=== PATIENT | male | born 1955 | race Caucasian/White ===

== ENCOUNTER 2019-09-11 23:58 | Emergency (ER) | payer OTHER ==
[2019-09-12] MEDS ORDERED: DIAZEPAM 10 MG/2 ML INJ SYRINGE ONE (00:12)
[2019-09-12] MEDS ORDERED: NA CHLORIDE 0.9% 500 ML ONE (00:51)
[2019-09-12] MEDS ORDERED: PROPOFOL 200 MG/20 ML VIAL IV ONE (00:52)
--- NOTE | 2019-09-12 00:52 | ER ---
Nurse's Notes [facility] Name: Srinivasa Phipps Age: 64 yrs Sex: Male : 1955 Arrival Date: 09/12/2019 Time: 00:01 Bed 4 Private MD: Diagnosis: Dislocation of other parts of left shoulder girdle Presentation: 09/11 23:55 Presenting complaint: Patient states: I fell while walking down the amin and hit my jb4 shoulder on the corner of a wooden corner. I did not pass out I do not know if I hit my head. EMS states: Pt fell walking down his hallway and dislocated his shoulder. 23:55 Method Of Arrival: EMS: [facility] 23:55 Transition of care: patient was not received from another setting of care. Onset of jb4 symptoms was September 11, 2019. Risk Assessment: Do you want to hurt yourself or someone else? Patient reports no desire to harm self or others. Initial Sepsis Screen: Does the patient meet any 2 criteria? HR > 90 bpm. Yes Does the patient have a suspected source of infection? No. Patient's initial sepsis screen is negative. Care prior to arrival: None. 23:55 Acuity: KORY 3 jb4 23:55 Mechanism of Injury: Fall from standing position. jb4 23:55 Trauma event details: Injury occurred in the [facility]. jb4 Trauma Activation: Physician: ED Physician; Name: Mariya; Notified At: 00:05; Arrived At: 00:05 Physician: General Surgeon; Name: ; Notified At: 00:05; Arrived At: Physician: Radiology; Name: Manju; Notified At: 00:05; Arrived At: 00:05 Physician: Respiratory; Name: ; Notified At: 00:05; Arrived At: Physician: Lab; Name: ; Notified At: 00:05; Arrived At: Historical: - Allergies: 09/12 00:10 No Known Allergies; jb4 - Home Meds: 00:10 Metoprolol Tartrate Oral [Active]; Eliquis oral oral [Active]; jb4 - PMHx: 00:10 Atrial Fib; Hypertension; Kidney stones; jb4 - PSHx: 00:10 Heart Surgery; jb4 - Immunization history:: Adult Immunizations up to date. - Social history:: Smoking status: Patient uses alcohol. - Immunization history: Last tetanus immunization: unknown. - Ebola Screening: : No symptoms or risks identified at this time. Screenin/27 23:55 Abuse screen: Denies threats or abuse. Nutritional screening: No deficits noted. jb4 Tuberculosis screening: No symptoms or risk factors identified. Fall Risk Fall in past 12 months (25 points). IV access (20 points). Total Glass Fall Scale indicates High Risk Score (45 or more points). Fall prevention measures have been instituted. Side Rails Up X 2 Placed Close to Nursing Station Frequent Obs/Assessments Occuring Family Present and informed to notify staff if the need to leave the bedside As available patient and family educated on Fall Prevention Program and Strategies. Primary Survey: 23:55 NO uncontrolled hemorrhage observed. A: The patient is alert. Airway: patent. jb4 Breathing/Chest: Respiratory pattern: regular, Respiratory effort: spontaneous, unlabored. Circulation: Skin color: pink, Skin temperature: warm. Disability Alert. Exposure/Environment: All clothing and personal items were removed. Forensic evidence collection is not deemed to be indicated at this time. Items placed in patient belonging bag. 09/12 01:30 Reassessment Airway Airway Patent Oxygen No O2 Breathing/Chest Respiratory pattern jb4 Regular Respiratory effort Spontaneous Unlabored Circulation Color [place] Temperature Warm Disability Alert. Secondary Survey: 09/11 23:55 HEENT: No deficits noted. Gastrointestinal: No deficits noted. : No deficits noted. jb4 Musculoskeletal: Circulation, motion, and sensation intact. Range of motion: limited in left shoulder. Assessment: 23:55 General: Appears in no apparent distress. uncomfortable, Behavior is cooperative, jb4 agitated. Pain: Complains of pain in anterior aspect of left shoulder Pain does not radiate. Pain currently is 10 out of 10 on a pain scale. Quality of pain is described as stabbing. Neuro: Level of Consciousness is awake, alert, obeys commands, Oriented to person, place, time, situation. Cardiovascular: Patient's skin is warm and dry. Respiratory: Airway is patent Respiratory effort is even, unlabored, Respiratory pattern is regular, symmetrical. GI: No deficits noted. No signs and/or symptoms were reported involving the gastrointestinal system. : No deficits noted. No signs and/or symptoms were reported regarding the genitourinary system. EENT: No deficits noted. No signs and/or symptoms were reported regarding the EENT system. Derm: Skin has skin tears on Left wrist. Musculoskeletal: Circulation, motion, and sensation intact. Range of motion: limited in left shoulder. 09/12 00:58 Reassessment: Conscious sedation started at 0058. jb4 01:30 Reassessment: Patient appears in no apparent distress at this time. Patient and/or jb4 family updated on plan of care and expected duration. Pain level reassessed. Patient is alert, oriented x 3, equal unlabored respirations, skin warm/dry/pink. Pt has been placed in a shoulder immobilizer. Patient states feeling better. 02:29 Reassessment: Patient appears in no apparent distress at this time. Patient and/or jb4 family updated on plan of care and expected duration. Pain level reassessed. Patient is alert, oriented x 3, equal unlabored respirations, skin warm/dry/pink. PT assisted to Vehicle via Wheelchair. Vital Signs: 09/11 23:55 BP 123 / 70; Pulse 91; Resp 14; Temp 97.4(O); Pulse Ox 97% on R/A; Weight 129.27 kg jb4 (R); Height 5 ft. 10 in. (177.80 cm) (R); Pain 08/25; 09/12 00:59 BP 124 / 87; Pulse 85; Resp 17; Pulse Ox 100% on 100% Non-rebreather mask; jb4 01:45 BP 118 / 73; Pulse 83; Resp 14; Pulse Ox 100% on R/A; jb4 02:15 BP 127 / 64; Pulse 92; Resp 17; Pulse Ox 99% on R/A; jb4 09/11 23:55 Body Mass Index 40.89 (129.27 kg, 177.80 cm) jb4 [place] Coma Score: 09/11 23:55 Eye Response: spontaneous(4). Verbal Response: oriented(5). Motor Response: obeys jb4 commands(6). Total: 15. 09/12 00:59 Eye Response: spontaneous(4). Verbal Response: oriented(5). Motor Response: obeys jb4 commands(6). Total: 15. 01:45 Eye Response: spontaneous(4). Verbal Response: oriented(5). Motor Response: obeys jb4 commands(6). Total: 15. 02:15 Eye Response: spontaneous(4). Verbal Response: oriented(5). Motor Response: obeys jb4 commands(6). Total: 15. Trauma Score (Adult): 09/11 23:55 Eye Response: spontaneous(1); Verbal Response: oriented(1); Motor Response: obeys jb4 commands(2); Systolic BP: > 89 mm Hg(4); Respiratory Rate: 10 to 29 per min(4); [place] Score: 15; Trauma Score: 12 09/12 00:59 Eye Response: spontaneous(1); Verbal Response: oriented(1); Motor Response: obeys jb4 commands(2); Systolic BP: > 89 mm Hg(4); Respiratory Rate: 10 to 29 per min(4); [place] Score: 15; Trauma Score: 12 01:45 Eye Response: spontaneous(1); Verbal Response: oriented(1); Motor Response: obeys jb4 commands(2); Systolic BP: > 89 mm Hg(4); Respiratory Rate: 10 to 29 per min(4); [place] Score: 15; Trauma Score: 12 02:15 Eye Response: spontaneous(1); Verbal Response: oriented(1); Motor Response: obeys jb4 commands(2); Systolic BP: > 89 mm Hg(4); Respiratory Rate: 10 to 29 per min(4); Buck Score: 15; Trauma Score: 12 ED Course: 09/11 23:55 Arm band placed on left wrist. jb4 23:55 Patient has correct armband on for positive identification. Placed in gown. Bed in low jb4 position. Call light in reach. Side rails up X2. 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 Pulse ox on. NIBP on. 23:55 No provider procedures requiring assistance completed. Maintain EMS IV. Dressing jb4 intact. Good blood return noted. Site clean \T\ dry. Gauge \T\ site: 20g right wrist. 23:55 Patient maintains SpO2 saturation greater than 95% on room air. Thermoregulation: warm jb4 blanket given to patient. 09/12 00:01 Patient arrived in ED. bb 00:05 José Richter RN is Primary Nurse. jb4 00:07 Sj Meraz MD is Attending Physician. tw4 00:07 Triage completed. jb4 01:15 Shoulder immobilizer applied on left shoulder. ds4 01:30 Shoulder Left (2 View) XRAY In Process Unspecified. EDMS 01:32 Shoulder Left (2 View) XRAY In Process Unspecified. EDMS 02:07 Gilbert Martinez MD is Referral Physician. tw4 02:07 Ritesh Hernandez MD is Referral Physician. tw4 02:07 Juvencio Ambrosio MD is Referral Physician. tw4 02:33 IV discontinued, intact, bleeding controlled, No redness/swelling at site. Pressure jb4 dressing applied. Administered Medications: 00:15 Drug: Valium 5 mg Route: IVP; Site: right wrist; jb4 00:45 Follow up: Response: No adverse reaction; No change in condition jb4 00:34 CANCELLED (other intervention used): Lidocaine (1 %) 1 vials 20 ml Infiltration once; snw to bedside 00:58 Drug: Propofol 160 mg Route: IVP; Site: right wrist; jb4 01:48 Follow up: Response: No adverse reaction; Marked relief of symptoms jb4 Intake: 02:32 IV: 250ml (IV Fluid); Total: 250ml. jb4 Output: 02:32 Urine: 0ml; Total: 0ml. jb4 Outcome: 00:51 Discharge ordered by . tw4 02:07 Discharge ordered by MD. tw4 02:33 Discharged to home via wheelchair, with family. jb4 02:33 Condition: stable 02:33 Discharge instructions given to patient, Instructed on discharge instructions, follow up and referral plans. medication usage, Demonstrated understanding of instructions, follow-up care, medications, Prescriptions given X 2. 02:33 Patient's length of stay in the Emergency Department was greater than 2 hours. Pt jb4 discharged.Patient's length of stay extended due to 02:33 Patient left the ED. jb4 Signatures: Dispatcher [employer] EDMS Aneta Morillo, RN RN Brien Harden ds4 José Richter RN RN jb4 Wadley, Terrence, MD MD tw4 Amy Chavez [address] [employer] [facility]-Csnw
--- NOTE | 2019-09-12 00:52 | EDPHYS ---
Physician Documentation [facility] Name: Srinivasa Phipps Age: 64 yrs Sex: Male : 1955 Arrival Date: 09/12/2019 Time: 00:01 Bed 4 Private MD: ED Physician Sj Meraz HPI: 09/12 02:02 This 64 yrs old Male presents to ER via EMS with complaints of fall shoulder tw4 pain. 02:02 The patient or guardian complains of injury. The complaints affect the anterior aspect tw4 of left shoulder. Context: The problem was sustained at home. Onset: The symptoms/episode began/occurred today. Treatment prior to arrival includes: no previous treatment. Modifying factors: The symptoms are alleviated by nothing. the symptoms are aggravated by nothing. Severity of symptoms: At their worst the symptoms were moderate, in the emergency department the symptoms are unchanged. The patient has not experienced similar symptoms in the past. Historical: - Allergies: 00:10 No Known Allergies; jb4 - Home Meds: 00:10 Metoprolol Tartrate Oral [Active]; Eliquis oral oral [Active]; jb4 - PMHx: 00:10 Atrial Fib; Hypertension; Kidney stones; jb4 - PSHx: 00:10 Heart Surgery; jb4 - Immunization history:: Adult Immunizations up to date. - Social history:: Smoking status: Patient uses alcohol. - Immunization history: Last tetanus immunization: unknown. - Ebola Screening: : No symptoms or risks identified at this time. ROS: 02:02 Constitutional: Negative for fever, chills, and weight loss, Eyes: Negative for injury, tw4 pain, redness, and discharge, Cardiovascular: Negative for chest pain, palpitations, and edema, Respiratory: Negative for shortness of breath, cough, wheezing, and pleuritic chest pain, Abdomen/GI: Negative for abdominal pain, nausea, vomiting, diarrhea, and constipation, Back: Negative for injury and pain, Skin: Negative for injury, rash, and discoloration, Neuro: Negative for headache, weakness, numbness, tingling, and seizure. 02:02 MS/extremity: Positive for injury or acute deformity, decreased range of motion, deformity. Exam: 02:02 Constitutional: This is a well developed, well nourished patient who is awake, alert, tw4 and in no acute distress. Head/Face: Normocephalic, atraumatic. Chest/axilla: Normal chest wall appearance and motion. Nontender with no deformity. No lesions are appreciated. Cardiovascular: Regular rate and rhythm with a normal S1 and S2. No gallops, murmurs, or rubs. Normal PMI, no JVD. No pulse deficits. Respiratory: Lungs have equal breath sounds bilaterally, clear to auscultation and percussion. No rales, rhonchi or wheezes noted. No increased work of breathing, no retractions or nasal flaring. Abdomen/GI: Soft, non-tender, with normal bowel sounds. No distension or tympany. No guarding or rebound. No evidence of tenderness throughout. 02:02 Musculoskeletal/extremity: Extremities: noted in the anterior aspect of left shoulder: decreased ROM, deformity, tenderness, ROM: limited active range of motion due to pain, in the anterior aspect of left shoulder, limited passive range of motion due to pain, in the anterior aspect of left shoulder, Circulation is intact in all extremities. Vital Signs: 09/11 23:55 BP 123 / 70; Pulse 91; Resp 14; Temp 97.4(O); Pulse Ox 97% on R/A; Weight 129.27 kg jb4 (R); Height 5 ft. 10 in. (177.80 cm) (R); Pain 08/25; 09/12 00:59 BP 124 / 87; Pulse 85; Resp 17; Pulse Ox 100% on 100% Non-rebreather mask; jb4 01:45 BP 118 / 73; Pulse 83; Resp 14; Pulse Ox 100% on R/A; jb4 02:15 BP 127 / 64; Pulse 92; Resp 17; Pulse Ox 99% on R/A; jb4 09/11 23:55 Body Mass Index 40.89 (129.27 kg, 177.80 cm) jb4 [place] Coma Score: 09/11 23:55 Eye Response: spontaneous(4). Verbal Response: oriented(5). Motor Response: obeys jb4 commands(6). Total: 15. 09/12 00:59 Eye Response: spontaneous(4). Verbal Response: oriented(5). Motor Response: obeys jb4 commands(6). Total: 15. 01:45 Eye Response: spontaneous(4). Verbal Response: oriented(5). Motor Response: obeys jb4 commands(6). Total: 15. 02:15 Eye Response: spontaneous(4). Verbal Response: oriented(5). Motor Response: obeys jb4 commands(6). Total: 15. Trauma Score (Adult): 09/11 23:55 Eye Response: spontaneous(1); Verbal Response: oriented(1); Motor Response: obeys jb4 commands(2); Systolic BP: > 89 mm Hg(4); Respiratory Rate: 10 to 29 per min(4); [place] Score: 15; Trauma Score: 12 09/12 00:59 Eye Response: spontaneous(1); Verbal Response: oriented(1); Motor Response: obeys jb4 commands(2); Systolic BP: > 89 mm Hg(4); Respiratory Rate: 10 to 29 per min(4); [place] Score: 15; Trauma Score: 12 01:45 Eye Response: spontaneous(1); Verbal Response: oriented(1); Motor Response: obeys jb4 commands(2); Systolic BP: > 89 mm Hg(4); Respiratory Rate: 10 to 29 per min(4); [place] Score: 15; Trauma Score: 12 02:15 Eye Response: spontaneous(1); Verbal Response: oriented(1); Motor Response: obeys jb4 commands(2); Systolic BP: > 89 mm Hg(4); Respiratory Rate: 10 to 29 per min(4); [place] Score: 15; Trauma Score: 12 Procedures: 02:02 Moderate sedation: Pre-procedure assessment: ASA physical classification: I - healthy, tw4 no underlying organic disease, Airway assessment: able to hyperextend neck, able to maintain airway, can open mouth without difficulty, Mallampati classification of tongue size: I - faucial pillars, soft palate, and uvula can be fully visualized, Monitoring during procedure: stencil typist, continuous pulse oximetry, nurse at bedside at all times, Medications employed: Propfol. 02:06 Reduction: of the left shoulder, using traction, manipulation, supination, Immobilized tw4 with shoulder immobilizer. Patient tolerated well. Post reduction film - reveals normal alignment. MDM: 00:07 Patient medically screened. tw4 02:02 Differential diagnosis: dislocation. Data reviewed: vital signs, nurses notes. Data tw4 interpreted: Pulse oximetry: Interpretation: normal. Test interpretation: by ED physician or midlevel provider: plain radiologic studies. Counseling: I had a detailed discussion with the patient and/or guardian regarding: the historical points, exam findings, and any diagnostic results supporting the discharge/admit diagnosis. Special discussion: I discussed with the patient/guardian in detail that at this point there is no indication for admission to the hospital. It is understood, however, that if the symptoms persist or worsen the patient needs to return immediately for re-evaluation. 09/12 00:24 Order name: Conscious Sedation; Complete Time: :30 snw 09/12 00:35 Order name: Oxygen: 15L via NRB x 15min; Complete Time: : snw 09/12 01:16 Order name: Shoulder Immobilizer; Complete Time: : snw 09/12 01:16 Order name: Wound Care; Complete Time: : snw 09/12 01:16 Order name: Dermabond; Complete Time: : snw Administered Medications: 00:15 Drug: Valium 5 mg Route: IVP; Site: right wrist; jb4 00:45 Follow up: Response: No adverse reaction; No change in condition jb4 00:34 CANCELLED (other intervention used): Lidocaine (1 %) 1 vials 20 ml Infiltration once; snw to bedside 00:58 Drug: Propofol 160 mg Route: IVP; Site: right wrist; jb4 01:48 Follow up: Response: No adverse reaction; Marked relief of symptoms jb4 Disposition: 09/12/19 02:07 Discharged to Home. Impression: Dislocation of other parts of left shoulder girdle. - Condition is Stable. - Discharge Instructions: Shoulder Range of Motion Exercises, Shoulder Dislocation, [id number]. - Prescriptions for Ibuprofen 800 mg Oral Tablet - take 1 tablet by ORAL route every 8 hours As needed take with food; 30 tablet. Tramadol 50 mg Oral Tablet - take 1 tablet by ORAL route every 8 hours as needed; 12 tablet. - Work release form, Medication Reconciliation Form, Thank You Letter, Antibiotic Education, Prescription Opioid Use form. - Follow up: Gilbert Martinez MD; When: Upon discharge from the Emergency Department; Reason: Recheck today's complaints, Continuance of care. Follow up: Ritesh Hernandez MD; When: Upon discharge from the Emergency Department; Reason: Recheck today's complaints, Continuance of care. Follow up: Juvencio Ambrosio MD; When: Upon discharge from the Emergency Department; Reason: Recheck today's complaints, Continuance of care. - Problem is new. - Symptoms have improved. Signatures: Dispatcher [employer] EDMS Amy Chavez, GIVING OFFICER-C GIVING OFFICER-Csnw José Richter, RN RN jb4 Sj Meraz MD MD tw4 Corrections: (The following items were deleted from the chart) 00:34 00:24 Lidocaine (1 %) 1 vials 20 ml Infiltration once; to bedside ordered. snw snw 01:39 00:51 09/12/2019 00:51 Discharged to Home. Impression: Anxiety disorder, unspecified. tw4 Condition is Stable. Forms are Medication Reconciliation Form, Thank You Letter, Antibiotic Education, Prescription Opioid Use. Follow up: Private Physician; When: Upon discharge from the Emergency Department; Reason: Recheck today's complaints, Continuance of care. Problem is new. Symptoms have improved. tw4 02:33 02:07 09/12/2019 02:07 Discharged to Home. Impression: Dislocation of other parts of jb4 left shoulder girdle. Condition is Stable. Forms are Medication Reconciliation Form, Thank You Letter, Antibiotic Education, Prescription Opioid Use. Follow up: Gilbert Martinez; When: Upon discharge from the Emergency Department; Reason: Recheck today's complaints, Continuance of care. Follow up: Ritesh Hernadnez; When: Upon discharge from the Emergency Department; Reason: Recheck today's complaints, Continuance of care. Follow up: Juvencio Ambrosio; When: Upon discharge from the Emergency Department; Reason: Recheck today's complaints, Continuance of care. Problem is new. Symptoms have improved. tw4
[2019-09-12 02:46] VITALS: BP 127/64; O2SAT 99
--- NOTE | 2019-09-12 08:09 | RAD REPORT ---
EXAM DESCRIPTION: RAD - Shoulder 1 View - 09/12/2019 6:50 am CLINICAL HISTORY: PAIN COMPARISON: Shoulder 1 View dated 09/12/2019 FINDINGS: Single frontal projection left shoulder is submitted. Subcoracoid dislocation of the humer al head is suspected with respect to the glenoid.
--- NOTE | 2019-09-12 08:12 | RAD REPORT ---
EXAM DESCRIPTION: RAD - Shoulder 1 View - 09/12/2019 6:52 am CLINICAL HISTORY: s/p reduction Shoulder dislocation COMPARISON: Shoulder 1 View dated 09/12/2019 FINDINGS: Previously noted subcoracoid dislocation of the humeral head has been reduced. No fracture is evident.
== END 2019-09-12 02:33 | disposition home or self-care (01) ==
LOC: ER 23:58
DX: S43.305A Dislocation of unspecified parts of left shoulder girdle, initial encounter (principal); I10 Essential (primary) hypertension; I48.91 Unspecified atrial fibrillation; W01.119A Fall on same level from slipping, tripping and stumbling with subsequent striking against unspecified sharp object, initial encounter; Y93.89 Activity, other specified; Y92.9 Unspecified place or not applicable
CPT/HCPCS: 73020 ×2; 96375; 96374; 99285; J2704; J3360; J7040

== ENCOUNTER 2020-02-03 11:26 | Day surgery (SDC) | payer OTHER ==
[2020-02-02 11:25] LABS: Absolute Lymphocytes (CBC) 0.9 K/uL (0.7-4.9); Basophils % 0.5 % (0-1.3); Hematocrit 34.4 % (39.6-49.0); Lymphocytes % 8.8 % (15.3-44.8); RBC Red Blood Cell Count 4.42 M/uL (4.33-5.43)
[2020-02-02 11:47] LABS: Potassium 3.6 mmol/L (3.5-5.1)
--- NOTE | 2020-02-02 16:52 | EKG ---
Test Date: 2020-02-02 Test Time: 12:03:43 Diesel Mechanic Apprentice: MELE MEASUREMENT RESULTS: Intervals: Rate: 84 VA: QRSD: 98 QT: 396 QTc: 467 [place]: P: VA: QRS: 60 T: -54 INTERPRETIVE STATEMENTS: Atrial fibrillation ST & T wave abnormality, consider inferior ischemia or digitalis effect Prolonged QT Abnormal ECG No previous ECG available for comparison Electronically Signed On 02-02-20 16:51:51 CDT by Bruce Huitron
--- OUTSIDE RECORDS SUMMARY | 2020-02-03 11:30 | XMS REPORT | Summary of Care ---
:1955 Author Organization [address] [address] Care Team Providers Name Role Phone Jsoé Block MD Primary Care Provider Reason for Visit Reason Comments Arrhythmias Encounter Details Date Type Department Care Team Description 12/29/2019 Case Management [facility], Iron Tamayo, Arrhythmias [facility] Clinics [address] [place] [address]. [place] [id number] Allergies No Known Allergiesdocumented as of this encounter (statuses as of 12/29/2019) Medications Medication Sig Dispensed Refills Start Date End Date Status ELIQUIS 5 mg tablet Take 5 mg by 0 12/26/2016 Active mouth 2 (two) times daily. amLODIPine 5 mg Take 1 tablet by 30 tablet 12 05/30/2019 Active tabletIndications: mouth daily. Essential hypertension furosemide 40 mg Take 1 tablet by 30 tablet 5 06/27/2019 Active tabletIndications: mouth daily. Acute on chronic diastolic congestive heart failure olmesartan-hydrochlorot Take 1 tablet by 30 tablet 12 10/19/2019 Active hiazide 40-12.5 mg per mouth daily. tabletIndications: Essential hypertension olmesartan-hydrochlorot Take 1 tablet by 90 tablet 0 10/18/2019 Active hiazide 40-12.5 mg per mouth daily. tabletIndications: Essential hypertension metoprolol succinate XL Take 1 tablet by 180 tablet 2 11/29/2019 Active 100 mg 24 hr tablet mouth 2 (two) times daily. documented as of this encounter (statuses as of 12/29/2019) Active Problems Problem Noted Date Obesity (BMI 30-39.9) 05/26/2019 Acute exacerbation of CHF (congestive heart failure) 05/25/2019 Left lower lobe pneumonia 05/02/2019 Morbid obesity with body mass index of 40.0-49.9 05/02/2019 Atrial fibrillation with RVR 05/02/2019 Chronic anticoagulation 05/02/2019 Essential hypertension 12/18/2015 documented as of this encounter (statuses as of 12/29/2019) Immunizations Name Administration Dates Next Due Influenza Virus Vaccine 08/30/2016 documented as of this encounter Social History Tobacco Use Types Packs/Day Years Used Date Former Smoker Quit: 12/18/2012 Smokeless Tobacco: Never Used Alcohol Use Drinks/Week oz/Week Comments Yes 6 Cans of beer 6.0 Sex Assigned at Date Recorded Not on file Job Start Date Occupation Industry Not on file Not on file Not on file Travel History Travel Start Travel End No recent travel history available. documented as of this encounter Last Filed Vital Signs Not on filedocumented in this encounter Progress Notes Iron Jean Baptiste MD - 12/29/2019 4:55 AM CSTReceived a call from [employer] informing us that at 2:11 am patient had 5 beats of NSVT at rate of 166 bpm with baseline rhythm of a-fib at rate of 60-70 bpm. [employer] called Mr. Phipps who reported having no symptoms. Iron Jean Baptiste MD Cold Header Operator PGY 4 Pager [phone] documented in this encounter Plan of Treatment Date Type Specialty Care Team Description 01/31/2020 Office Visit Cardiology Robert Irby MD [address] [place] [address] [place] [phone] Health Maintenance Due Date Last Done Comments LDL-C 01/28/2019 01/28/2018, 12/29/2016 COLONOSCOPY 01/13/2020 Postponed from 2003 (Alternative Guidelines) DTaP,Tdap,and Td Vaccines 01/13/2020 Postponed from (1 - Tdap) 1964 (Alternative Guidelines) EYE EXAM 01/13/2020 Postponed from 1963 (Alternative Guidelines) HEPATITIS C (HCV) SCREEN 01/13/2020 Postponed from 1955 (Alternative Guidelines) HgA1C 01/13/2020 05/02/2019, 11/01/2018, Postponed from 05/10/2018, Additional 11/01/2019 (Alternative history exists Guidelines) INFLUENZA VACCINE (#1) 2020 08/30/2016 Postponed from 07/17/2019 (Alternative Guidelines) LUNG CANCER SCREEN: 01/13/2020 Postponed from Recommended for age 55-80 2008 (Alternative with 30 + pack year history Guidelines) Medicare Wellness Visit 01/13/2020 Postponed from 2018 (Alternative Guidelines) PNEUMOCOCCAL VACCINES 65+ 01/13/2020 Postponed from (1 of 2 - PCV13) 2018 (Alternative Guidelines) URINE MICROALBUMIN 01/13/2020 Postponed from 1963 (Alternative Guidelines) Zoster Recombinant Vaccine 01/13/2020 Postponed from (SHINGRIX) (1 of 2) 2003 (Alternative Guidelines) FOOT EXAM 05/02/2020 05/02/2019, 05/02/2019 CREATININE (SERUM) 11/29/2020 11/29/2019, 05/27/2019, 05/26/2019, Additional history exists documented as of this encounter Results Not on filedocumented in this encounter Insurance Payer Benefit Plan / Subscriber ID Effective Dates Phone Address Type Group AETNA SRC AN AETNA [id number] 2015-[employer] t MEDICARE MEDICARE PART xxxxxxxxxxx 2018-Julián [phone] [address] Medicare A t 2 [id number] documented as of this encounter
--- OUTSIDE RECORDS SUMMARY | 2020-02-03 11:30 | XMS REPORT | Summary of Care ---
:1955 Author Organization [facility] Address [address] [place] [address] Care Team Providers Name Role Phone José Block MD Primary Care Provider Reason for Referral (Routine) Status Reason Specialty Diagnoses / Referred By Referred To Procedures Contact Contact New Request Cardiology Procedures Robert Irby CARDIO LOOP MONITOR MD [facility] [address] [facility] [address] [place] [address] Reason for Visit Reason Comments New Patient Establish Local Care Auth/Cert Status Reason Specialty Diagnoses / Procedures Referred By Contact Referred To Contact Phlebotomy Diagnoses Acute on chronic diastolic congestive heart failure Adc Pob Lab Draw Procedures n-term pro bnp basic met panell [facility] Building [address] [place] [address] , [address] [place] [address] Encounter Details Date Type Department Care Team Description 11/29/2019 Office Visit [facility] Robert Irby Atrial fibrillation, unspecified type (Primary Dx); Cardiology- Christiano Murillo MD Morbid obesity with body mass index of 40.0-49.9; [address] [place] [address] DR Stacy anticoagulation; [facility], [address] Essential hypertension; [place], [place] OMAR on CPAP; [phone] Chronic heart failure with preserved ejection fraction [phone] Allergies No Known Allergiesdocumented as of this encounter (statuses as of 12/27/2019) Medications Medication Sig Dispensed Refills Start Date End Date Status ELIQUIS 5 mg Take 5 mg by 0 12/26/2016 Active tablet mouth 2 (two) times daily. amLODIPine 5 mg Take 1 30 tablet 12 05/30/2019 Active tabletIndications: tablet by Essential mouth daily. hypertension furosemide 40 mg Take 1 30 tablet 5 06/27/2019 Active tabletIndications: tablet by Acute on chronic mouth daily. diastolic congestive heart failure olmesartan-hydroch Take 1 30 tablet 12 10/19/2019 Active lorothiazide tablet by 40-12.5 mg per mouth daily. tabletIndications: Essential hypertension olmesartan-hydroch Take 1 90 tablet 0 10/18/2019 Active lorothiazide tablet by 40-12.5 mg per mouth daily. tabletIndications: Essential hypertension metoprolol Take 1 180 tablet 2 11/29/2019 Active succinate XL 100 tablet by mg 24 hr tablet mouth 2 (two) times daily. metoprolol Take 3 180 tablet 5 05/27/2019 Discontinued succinate XL 25 mg tablets by 0 (Reorder) 24 hr mouth 2 tabletIndications: (two) times Acute on chronic daily. diastolic congestive heart failure documented as of this encounter (statuses as of 12/27/2019) Active Problems Problem Noted Date Obesity (BMI 30-39.9) 05/26/2019 Acute exacerbation of CHF (congestive heart failure) 05/25/2019 Left lower lobe pneumonia 05/02/2019 Morbid obesity with body mass index of 40.0-49.9 05/02/2019 Atrial fibrillation with RVR 05/02/2019 Chronic anticoagulation 05/02/2019 Essential hypertension 12/18/2015 documented as of this encounter (statuses as of 12/27/2019) Immunizations Name Administration Dates Next Due Influenza [...] of this encounter Last Filed Vital Signs Vital Sign Reading Time Taken Comments Blood Pressure 146/85 11/29/2019 11:29 AM OFFICE AUTOMATION CLERK Pulse 102 11/29/2019 11:24 AM OFFICE AUTOMATION CLERK Temperature - - Respiratory Rate 20 11/29/2019 11:24 AM OFFICE AUTOMATION CLERK Oxygen Saturation 95% 11/29/2019 11:24 AM OFFICE AUTOMATION CLERK Inhaled Oxygen Concentration - - Weight 132.4 kg (291 lb 14.4 oz) 11/29/2019 11:24 AM OFFICE AUTOMATION CLERK Height 177.8 cm (5' 10") 11/29/2019 11:24 AM OFFICE AUTOMATION CLERK Body Mass Index 41.88 11/29/2019 11:24 AM OFFICE AUTOMATION CLERK documented in this encounter Progress Notes Robert Irby MD - 11/29/2019 11:30 AM CST [facility] Cardiology Consult Note Patient: Srinivasa Phipps Date of : 1955 Date of service: José Block CHIEF COMPLAINT: Chief Complaint Patient presents with New Patient Establish Local Care History of Present Illness: Srinivasa Phipps is a 63 year old male presents to clinic to establish care with [facility] Cardiology for HFpEF and atrial fibrillation. History from patient. History dates back to 2012 when he was noticed to have parathyroid problems/ kidney stones/ lithotripsy. Had one episode of syncope. S/p Parathyroid surgery; noted to be in atrial fibrillation. Established care with Dr Hughes/Dr Marlow: Meds for atrial fibrillation: 2013: s/p DCVV: in [place] for few months. Then went back to ? Aflutter. 10/[address] Caicedo in [place]. Typical atrial flutter ablation. Reports was in [place] for few visits, then he had atrial fibrillation since then sometime [phone] onwards. Unsure if its PAF in nature. In -05/2019, admitted for pneumonia/HFpEF, added lasix and Cardizem. Currently taking Norvasc instead of Cardizem. Dyspnea worse with exertion NYHA Class II. Weight increasing. No history of exertional chest pain. No chest pain at rest. No PND or orthopnea. No pedal edema. No syncopal attacks. History of chronic atrial fibrillation/flutter s/p flutter ablation 2014, hypertension, OMAR, obese. Previous Cardiac Studies: IMAGING - I personally reviewed, pertinent results as below: ECG: Afib with RVR CXR CONCLUSIONS: 1. Findings suggestive of left lower lobe pneumonia with small parapneumonic effusion and mild pulmonary venous congestion Echo 04/2019 Interpretation Summary A complete two-dimensional transthoracic echocardiogram was performed (2D, M- mode, Doppler and colorflow Doppler). The study was technically difficult. There is no comparison study available. Left ventricular systolic function is normal. Diastolic dysfunction. Insufficient Tricuspid regurgitation jet to estimate RVSP. The right atrium is mildly dilated. 10/2015 CONCLUSIONS: 1. Successful ablation of the cavotricuspid isthmus with bidirectional block. PAST MEDICAL HISTORY Past Medical History: Diagnosis Date Atrial flutter Hypertension Past Surgical History: Procedure Laterality Date ABLATION SUPRAVENT ARRHYTHMOGENIC FOCUS 10/18/2015 Family History Problem Relation Age of Onset No Significant Medical Problems Mother Alcohol/Drug Father GI Father SOCIAL HISTORY Social History Socioeconomic History Marital status: Spouse name: Not on file Number of children: Not on file Years of education: Not on file Highest education level: Not on file Occupational History Not on file Social Needs Financial resource strain: Not on file Food insecurity: Worry: Not on file Inability: Not on file Transportation needs: Medical: Not on file Non-medical: Not on file Tobacco Use Smoking status: Former Smoker Last attempt to quit: 12/18/2012 Years since quittin.9 Smokeless tobacco: Never Used Substance and Sexual Activity Alcohol use: Yes Alcohol/week: 6.0 standard drinks Types: 6 Cans of beer per week Drug use: No Sexual activity: Yes Partners: Female Lifestyle Physical activity: Days per week: Not on file Minutes per session: Not on file Stress: Not on file Relationships Social connections: Talks on phone: Not on file Gets together: Not on file Attends congregational service: Not on file Active member of club or organization: Not on file Attends meetings of clubs or organizations: Not on file Relationship status: Not on file Intimate partner violence: Fear of current or ex partner: Not on file Emotionally abused: Not on file Physically abused: Not on file Forced sexual activity: Not on file Other Topics Concern Not on file 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 ELIQUIS 5 MG TABLET Take 5 mg by mouth 2 (two) times daily. FUROSEMIDE 40 MG TABLET Take 1 tablet by mouth daily. OLMESARTAN-HYDROCHLOROTHIAZIDE 40-12.5 MG PER TABLET Take 1 tablet by mouth daily. OLMESARTAN-HYDROCHLOROTHIAZIDE 40-12.5 MG PER TABLET Take 1 tablet by mouth daily. START taking Modified Medications as Prescribed Modified Medication Previous Medication METOPROLOL SUCCINATE XL 100 MG 24 HR TABLET metoprolol succinate XL 25 mg 24 hr tablet Take 1 tablet by mouth 2 (two) times daily. Take 3 tablets by mouth 2 ( two) times daily. STOP taking these medications No medications on file REVIEW OF SYSTEMS: Comprehensive 10-system review was conducted and were negative except for what' s noted in the HPI. The following systems were reviewed: Constitutional, cardiovascular, respiratory, gastrointestinal, genitourinary, musculoskeletal, neurologic, psychiatric, endocrinological, and hematological. PHYSICAL EXAMINATION: Vitals: 11/29/19 1124 11/29/19 1129 BP: 137/89 (!) 146/85 BP Location: Left arm Patient Position: Sitting BP CUFF SIZE: Adult Large Pulse: 102 Resp: 20 SpO2: 95% Weight: 291 lb 14.4 oz (132.4 kg) Height: 5' 10" (1.778 m) General: no apparent distress HEENT: normocephalic atraumatic Neck: supple, no lymphadenopathy, no bruits, no JVD Lungs: clear to auscultation bilaterally. No wheezes or rhonchi. No increased work of breathing. Cardio: Iregular rate and rhythm, S1&S2 normal, no murmurs, rubs or gallops Abdomen: soft; non-tender; non-distended; normoactive bowel sounds. : not examined Rectal: not examined Extremities: no clubbing, cyanosis, or edema. Skin: no rashes, no visible lesions. Neuro: no gross focal deficits LABS - Reviewed pertinent labs as below: CBC BMP PT/INR WHITE BLOOD CELL COUNT-Q (Thousand/uL) Date Value 01/28/2018 8.6 WBC (10*3/L) Date Value 05/27/2019 10.13 NA (mmol/L) Date Value 05/27/2019 138 SODIUM-Q (mmol/L) Date Value 01/28/2018 137 No results found for: PT PLATELET COUNT-Q (Thousand/uL) Date Value 01/28/2018 240 PLT (10*3/L) Date Value 05/27/2019 324 K (mmol/L) Date Value 05/30/2019 4.5 POTASSIUM-Q (mmol/L) Date Value 01/28/2018 4.5 INR (no units) Date Value 05/25/2019 1.6 HGB (g/dL) Date Value 05/27/2019 13.0 HEMOGLOBIN-Q (g/dL) Date Value 01/28/2018 15.9 BUN (mg/dL) Date Value 05/27/2019 21 UREA NITROGEN (BUN)-Q (mg/dL) Date Value 01/28/2018 16 HCT (%) Date Value 05/27/2019 41.9 HEMATOCRIT-Q (%) Date Value 01/28/2018 50.4 (H) CREATININE (mg/dL) Date Value 05/27/2019 0.78 CREATININE-Q (mg/dL) Date Value 01/28/2018 1.04 LIPID PROFILE GLUCOSE (mg/dL) Date Value 05/27/2019 113 (H) GLUCOSE-Q (mg/dL) Date Value 01/28/2018 356 (H) CHOLESTEROL, TOTAL-Q (mg/dL) Date Value 01/28/2018 200 (H) TSH [id number] (mg/dL (calc)) Date Value 01/28/2018 117 (H) TSH (mIU/L) Date Value 05/02/2019 0.07 (L) CARDIAC ENZYMES HDL CHOLESTEROL-Q (mg/dL) Date Value 01/28/2018 55 No results found for: CK TRIGLYCERIDES-Q (mg/dL) Date Value 01/28/2018 161 (H) LFTs No results found for: CKMB AST(SGOT) (U/L) Date Value 05/25/2019 27 AST-Q (U/L) Date Value 01/28/2018 15 TROPONIN I (ng/mL) Date Value 05/25/2019 0.017 ALT(SGPT) (U/L) Date Value 05/25/2019 28 ALT-Q (U/L) Date Value 01/28/2018 26 No results found for: BNP [id number]-S (mg/dL (calc)) Date Value 01/28/2018 117 (H) Recent Labs 05/25/19 1000 TROPNI 0.017 There are no current results on file for these tests and/or test for 1 year. ASSESSMENT/PLAN 1. Atrial fibrillation, unspecified type 2. Morbid obesity with body mass index of 40.0-49.9 3. Chronic anticoagulation 4. Essential hypertension 5. OMAR on CPAP 6. Chronic heart failure with preserved ejection fraction Afib: unspecified: likely persistent. Will get records from Dr Marlow office to see if regarding this echo, ECG, stress test and OV notes Recommend to increase Toprol XL 100 mg BiD. Continue Eliquis 5 mg biD Unsure why Cardizem was stopped. May need to restart it if needed for better rate controled Recommend event monitor for 2 weeks to assess for atrial fibrillation burden/ rate control. Rx options for atrial fibrillation discussed. Will refer to EP based on monitor results. Chronic diastolic HF: Stable. Labs today. Continue Lasix 40 mg daily. Keep K > 4 and Mag > 2. Daily weights at home. HTN: On Olmesartan/HCTZ 10/12.5 daily along with Norvasc 5 mg daily. Goal BP << 130/80 stressed. OMAR on CPAP: Reports compliance. Follow up in 6-8 weeks. Recommended goal BP < 130/80 consistently, LDL < 100 ( < 70), HbA1c &lt ; 6.5. Recommended, explained and stressed the importance of healthy eating habits and exercises and lifestyle modifications Patient's diease process and its evaluation and treatment were discussed. We discussed each of for cardio vascular-related problems and discussed long-term goals and expectations for the each problem.I reviewed each of the cardiac medications in detail. Given the patient's risk factor profile, and clinical symptoms, we discussed options for further assessment. The diagnostic accuracy and limitation of stress testing for identification of coronary artery disease were reviewed in detail. Specifically, for Ex TMT, sestamibi and stress echo testing and stressed the need for stress testing were reviewed. After discussion of the diagnostic accuracy and limitation of stress testing for identification of coronary disease, stress study is being arranged with further management will be based upon findings of the testing. Reviewed the medication with patient in detail recommended to continue taking the current medications without further changes other than changes mentioned above. Follow up as planned is predicated on symptoms stability and/or acceptable test results. Patient is urged to call in sooner should problems arise or if there is no improvement in cardiac symptoms. ER warning signs and symptoms explained and patient verbalized understanding. My diagnostic impression and treatment plans were discussed at length with the patient. All side effects as well as drug-drug interactions and risks discussed at length. Ample opportunity was offered and encouraged to ask questions during this visit and patient appreciated the answers given by me and verbzalised statisfcation in the answers given. We reviewed the [place] [employer] recommendations for reduction of overall cardio vascular risk. The importance of monitoring the blood pressure carefully both at home on regular basis along with other physicians appointment was stressed in detail. In addition we discussed target LDL levels for optimal risk reduction. It was advised that to daily physical activity be performed with 30 minutes of sustained exercise for both cardio vascular fitness and improvement for generalized medical health and well-being. Thank you for allowing us to participate in the care of Srinivasa Phipps. If you have any questions or concerns please feel free to call our office at [phone]. I would be happy to be of further assistance for Srinivasa Phipps wellbeing. Remington Irby MD Sound Engineering Technician, Division of Cardiology [facility] [place] 12/27/2019 Outside records reviewed. Echo 08/2019 Preserved LV EF 55-59 % Mild LVH Severe LA dilatation Mild RA dilatation RV size normal and normal function PASP 31 mmHg Remington Irby MD Sound Engineering Technician, Division of Cardiology [facility] documented in this encounter Plan of Treatment Date Type Specialty Care Team Description 01/31/2020 Office Visit Cardiology Robert Irby MD [address] [facility] [address] [id number] Name Type Priority Associated Diagnoses Order Schedule CARDIO LOOP MONITOR HEART STATION Routine 1 Occurrences starting 11/29/2019 until 11/29/2020 Health Maintenance Due Date Last Done Comments [...] exists documented as of this encounter Results N-TERMINAL PRO-BNP (11/29/2019 12:43 PM OFFICE AUTOMATION CLERK) NT-proBNP 861 (H) <=125 pg/mL [facility] Specimen Blood - ARM, LEFT Narrative Performed At Biotin has been reported to cause a negative [facility] bias, interpret results relative to patient's use of biotin. Performing Organization Address City/State/Zipcode Phone Number [facility] CLIA: [id number], [address] [place] [address] BASIC METABOLIC PANEL (NA, K, CL, CO2, GLUCOSE, BUN, CREATININE, CA) (2019 12:43 PM OFFICE AUTOMATION CLERK) NA 141 135 - 145 [facility] mmol/L [facility] K 3.9 3.5 - 5.0 [facility] mmol/L [facility] CL 103 98 - 108 mmol/L [facility] CO2 TOTAL 32 (H) 23 - 31 mmol/L [facility] AGAP 6 2 - 16 [facility] BUN 30 (H) 7 - 23 mg/dL [facility] GLUCOSE 113 (H) 70 - 110 mg/dL [facility] CREATININE 0.97 0.60 - 1.25 [facility] mg/dL [facility] CALCIUM 9.5 8.6 - 10.6 [facility] mg/dL HOSPITAL LABOR[facility]ORY eGFR Calculation 77.4 mL/min/1.73m2 [facility] ([facility] [place]) eGFR Calculation 93.9 mL/min/1.73m2 [facility] () [facility] Specimen Blood - ARM, LEFT Narrative Performed At Association of Glomerular Filtration Rate (GFR) [facility] and Staging of Kidney Disease* + + +- + | GFR (mL/min/1.73 m2) | With Kidney Damage | Without Kidney Damage + + +- + | >90 | Stage one | Normal + + +- + | 60-89 | Stage two | Decreased GFR + + +- + | 30-59 | Stage three | Stage three + + +- + | 15-29 | Stage four | Stage four + + +- + | <15 (or dialysis) | Stage five | Stage five + + +- + *Each stage assumes the associated GFR level has been in effect for at least three months. Stages 1 to 5, with or without kidney disease, indicate chronic kidney disease. Notes: Determination of stages one and two (with eGFR >59mL/min/1.73 m2) requires estimation of kidney damage for at least three months as defined by structural or functional abnormalities of the kidney, manifested by either: Pathological abnormalities or Markers of kidney damage (including abnormalities in the composition of the blood or urine or abnormalities in imaging tests). Performing Organization Address City/State/Zipcode Phone Number [facility] CLIA: [id number], [address] [place] [address] documented in this encounter Visit Diagnoses Diagnosis Atrial fibrillation, unspecified type - Primary Morbid obesity with body mass index of 40.0-49.9 Chronic anticoagulation Encounter for long-term (current) use of anticoagulants Essential hypertension Unspecified essential hypertension OMAR on CPAP Obstructive sleep apnea (adult) (pediatric) Chronic heart failure with preserved ejection fraction documented in this encounter documented as of this encounter
--- OUTSIDE RECORDS SUMMARY | 2020-02-03 11:30 | XMS REPORT | Summary of Care ---
:1955 Author Organization [facility] - Health Address [address] [place] [address] Care Team Providers Name Role Phone José Block MD Primary Care Provider Encounter Details Date Type Department Care Team Description 12/21/2019 Orders Only [facility] Doctor Unassigned, No 301 [facility] Name [place] [phone] [place] [address] Allergies No Known Allergiesdocumented as of this encounter (statuses as of 12/26/2019) Medications Medication Sig Dispensed Refills Start Date [...] as of this encounter (statuses as of 12/26/2019) Active Problems Problem Noted Date Obesity (BMI 30-39.9) 05/26/2019 Acute exacerbation of CHF (congestive heart failure) 05/25/2019 Left lower lobe pneumonia 05/02/2019 Morbid obesity with body mass index of 40.0-49.9 05/02/2019 Atrial fibrillation with RVR 05/02/2019 Chronic anticoagulation 05/02/2019 Essential hypertension 12/18/2015 documented as of this encounter (statuses as of 12/26/2019) Immunizations Name Administration Dates Next Due Influenza [...] Signs Not on filedocumented in this encounter Plan of Treatment Date Type Specialty Care Team Description 01/31/2020 Office Visit Cardiology Robert Irby MD [address]RE[address] [place] [phone] Health Maintenance Due Date Last Done [...] history exists documented as of this encounter Procedures Procedure Name Priority Date/Time Associated Diagnosis Comments EXTERNAL PROVIDER - ADC Routine 12/21/2019 12:01 AM CARDIOLOGY STEEPING PRESS OPERATOR documented in this encounter Results Not on filedocumented in this encounter Insurance Payer Benefit Plan / Subscriber ID Effective Dates Phone Address Type Group AETNA SRC AN AETNA [id number] 2015-Julián [employer] t MEDICARE MEDICARE PART xxxxxxxxxxx 2018-Juláin [phone] [facility] Medicare A t 2 [id number] [place] [id number] documented as of this encounter
--- OUTSIDE RECORDS SUMMARY | 2020-02-03 11:30 | XMS REPORT ---
:1955 [facility] Address [address] [place] [address] Dr. [address] [place] [address] Care Team Providers Name Role Phone Unavailable Unavailable Unavailable Problems This patient has no known problems. Allergies, Adverse Reactions, Alerts This patient has no known allergies or adverse reactions. Medications This patient has no known medications.
--- OUTSIDE RECORDS SUMMARY | 2020-02-03 11:30 | XMS REPORT | Summary of Care ---
:1955 Author Organization [address] [address] Care Team Providers Name Role Phone José Block MD Primary Care Provider Reason for Visit Reason Comments Arrhythmias Encounter Details Date Type Department Care Team Description 12/28/2019 Case Management [facility], Iron Tamayo, Arrhythmias and Clinics [address] [place] [address]. [place] [phone] Allergies No Known Allergiesdocumented as of this encounter (statuses as of 12/28/2019) Medications Medication Sig Dispensed Refills Start Date [...] as of this encounter (statuses as of 12/28/2019) Active Problems Problem Noted Date Obesity (BMI 30-39.9) 05/26/2019 Acute exacerbation of CHF (congestive heart failure) 05/25/2019 Left lower lobe pneumonia 05/02/2019 Morbid obesity with body mass index of 40.0-49.9 05/02/2019 Atrial fibrillation with RVR 05/02/2019 Chronic anticoagulation 05/02/2019 Essential hypertension 12/18/2015 documented as of this encounter (statuses as of 12/28/2019) Immunizations Name Administration Dates Next Due Influenza [...] Progress Notes Iron Jean Baptiste MD - 12/28/2019 1:48 AM CSTReceived a call from authorGEN informing us that around 1:04 am patient had 5 beats of NSVT at rateof 193 bpm with baseline rhythm of a-flutter at rate of 80 bpm. I called the patient twice to check on how is he doing. No response. Voicemail was left. Iron Jean Baptiste MD Retail Warehouse Supervisor PGY 4 Pager [phone] documented in this encounter Plan of Treatment Date Type Specialty Care Team Description 01/31/2020 Office Visit Cardiology Robert Irby MD [address] [place] [phone] Health Maintenance Due Date Last Done [...] Address Type Group AETNA SRC AN AETNA [id number] 2015-[employer] t MEDICARE MEDICARE PART xxxxxxxxxxx 2018-Julián [phone] [address] Medicare A t 2 [id number] [place] [phone] documented as of this encounter
--- OUTSIDE RECORDS SUMMARY | 2020-02-03 11:31 | XMS REPORT | Summary of Care ---
:1955 Author Organization [facility] Address [address] [place] [address] Care Team Providers Name Role Phone José Block MD Primary Care Provider Reason for Visit Reason Comments NURSE VISIT home enrollment for 30 day event monitor Encounter Details Date Type Department Care Team Description 12/13/2019 Office Visit [facility] Kelvin Sylvester MD Atrial fibrillation, Cardiology- [address] unspecified type [address] ([address] Dx) Drive, [address] [place] [phone] Allergies No Known Allergiesdocumented as of this encounter (statuses as of 12/13/2019) Medications Medication Sig Dispensed Refills Start Date [...] as of this encounter (statuses as of 12/13/2019) Active Problems Problem Noted Date Obesity (BMI 30-39.9) 05/26/2019 Acute exacerbation of CHF (congestive heart failure) 05/25/2019 Left lower lobe pneumonia 05/02/2019 Morbid obesity with body mass index of 40.0-49.9 05/02/2019 Atrial fibrillation with RVR 05/02/2019 Chronic anticoagulation 05/02/2019 Essential hypertension 12/18/2015 documented as of this encounter (statuses as of 12/13/2019) Immunizations Name Administration Dates Next Due Influenza [...] on filedocumented in this encounter Progress Notes Tessa Wesley RN - 12/13/2019 2:00 PM CSTPatient was enrolled through [employer] for 30 day event monitor to be mailed to home for self hook-up. Patient notified via telephone, was already aware of plan from [facility]. documented in this encounter Plan of Treatment Date Type Specialty Care Team Description 01/31/2020 Office Visit Cardiology Robert Irby MD [address] [place] [phone] Health Maintenance Due Date Last Done [...] Results Not on filedocumented in this encounter Visit Diagnoses Diagnosis Atrial fibrillation, unspecified type - Primary documented in this encounter documented as of this encounter
--- OUTSIDE RECORDS SUMMARY | 2020-02-03 11:31 | XMS REPORT | Summary of Care ---
:1955 Author Organization [facility] - Health Address [address] [place] [address] Care Team Providers Name Role Phone José Block MD Primary Care Provider Encounter Details Date Type Department Care Team Description 12/13/2019 Orders Only [facility] Doctor Unassigned, No 301 [facility] Name [place] [phone] [place] [address] Allergies No Known Allergiesdocumented as of this encounter (statuses as of 12/15/2019) Medications Medication Sig Dispensed Refills Start Date [...] as of this encounter (statuses as of 12/15/2019) Active Problems Problem Noted Date Obesity (BMI 30-39.9) 05/26/2019 Acute exacerbation of CHF (congestive heart failure) 05/25/2019 Left lower lobe pneumonia 05/02/2019 Morbid obesity with body mass index of 40.0-49.9 05/02/2019 Atrial fibrillation with RVR 05/02/2019 Chronic anticoagulation 05/02/2019 Essential hypertension 12/18/2015 documented as of this encounter (statuses as of 12/15/2019) Immunizations Name Administration Dates Next Due Influenza [...] Irby MD [address] [place] [phone] Health Maintenance Due Date Last Done [...] Procedure Name Priority Date/Time Associated Diagnosis Comments INSURANCE CORRESPONDENCE Routine 12/13/2019 12:01 AM BUS INFO CONSULTANT documented in this encounter Results Not on filedocumented in this encounter Insurance Payer Benefit Plan / Subscriber ID Effective Dates Phone Address Type Group AETNA SRC AN AETNA [id number] 2015-Julián PPO [employer] t MEDICARE MEDICARE PART xxxxxxxxxxx 2018-Julián [phone] [address] Medicare A t 2 [id number] [place] [phone] documented as of this encounter
--- OUTSIDE RECORDS SUMMARY | 2020-02-03 11:31 | XMS REPORT | Summary of Care ---
:1955 Author Organization [facility] Address [address] [place] [address] Care Team Providers Name Role Phone José Block MD Primary Care Provider Reason for Referral (Routine) Status Reason Specialty Diagnoses / Referred By Referred To Procedures Contact Contact New Request Cardiology Procedures Robert Irby CARDIO LOOP MONITOR MD Chidi [facility] [address] [facility] [address] [place] [address] Reason for Visit Reason Comments New Patient Establish Local Care Auth/Cert Status Reason Specialty Diagnoses / Procedures Referred By Contact Referred To Contact Phlebotomy Diagnoses Acute on chronic diastolic congestive heart failure Adc Pob Lab Draw Procedures n-term pro bnp basic met panell Professional Office Building [address] [place] [address] , [address] [place] [address] Encounter Details Date Type Department Care Team Description 11/29/2019 Office Visit [facility] Robert Irby Atrial fibrillation, unspecified type (Primary Dx); Cardiology- Christiano Murillo MD Morbid obesity with body mass index of 40.0-49.9; [address] [place] [address] DR Stacy anticoagulation; [facility], [address] Essential hypertension; [place], [place] OMAR on CPAP; [phone] Chronic heart failure with preserved ejection fraction [phone] Allergies No Known Allergiesdocumented as of this encounter (statuses as of 11/29/2019) Medications Medication Sig Dispensed Refills Start Date [...] as of this encounter (statuses as of 11/29/2019) Active Problems Problem Noted Date Obesity (BMI 30-39.9) 05/26/2019 Acute exacerbation of CHF (congestive heart failure) 05/25/2019 Left lower lobe pneumonia 05/02/2019 Morbid obesity with body mass index of 40.0-49.9 05/02/2019 Atrial fibrillation with RVR 05/02/2019 Chronic anticoagulation 05/02/2019 Essential hypertension 12/18/2015 documented as of this encounter (statuses as of 11/29/2019) Immunizations Name Administration Dates Next Due Influenza [...] Comments Blood Pressure 146/85 11/29/2019 11:29 AM CENTRAL SERVICES TECH Pulse 102 11/29/2019 11:24 AM CENTRAL SERVICES TECH Temperature - - Respiratory Rate 20 11/29/2019 11:24 AM CENTRAL SERVICES TECH Oxygen Saturation 95% 11/29/2019 11:24 AM CENTRAL SERVICES TECH Inhaled Oxygen Concentration - - Weight 132.4 kg (291 lb 14.4 oz) 11/29/2019 11:24 AM CENTRAL SERVICES TECH Height 177.8 cm (5' 10") 11/29/2019 11:24 AM CENTRAL SERVICES TECH Body Mass Index 41.88 11/29/2019 11:24 AM CENTRAL SERVICES TECH documented in this encounter Progress Notes Robert Irby MD - 11/29/2019 11:30 AM CST [facility] Cardiology Consult Note Patient: Srinivasa Phipps Date of : 1955 Date of service: José Block CHIEF COMPLAINT: Chief Complaint Patient presents with New Patient Establish Local Care History of Present Illness: Srinivasa Phipps is a 63 year old male presents to clinic to establish care with [facility] Cardiology for HFpEF and atrial fibrillation. History [...] 10/[address] Caicedo [place]. Typical atrial flutter ablation. Reports was in [place] for few visits, then he had atrial fibrillation since then sometime [id number] onwards. Unsure if its PAF in nature. 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 We reviewed the [place] Heart Association recommendations for reduction of overall [...] feel free to call our office at . I would be happy to be of further assistance for Srinivasa Phipps wellbeing. Remington Irby MD Molder Shoulder Pad, Division of Cardiology [facility] documented in this encounter Plan of Treatment Date Type Specialty Care Team Description 11/29/2019 [employer] Visit Phlebotomy Robert Irby MD [address] [facility] [address] [place] [phone] Acute on chronic Pob, Adc Lab Main diastolic congestive heart failure 01/31/2020 Office Visit Cardiology Robert Irby MD [address] [facility] [address] [place] [phone] Name Type Priority Associated Diagnoses Date/Time BASIC METABOLIC PANEL LAB Routine Acute on chronic 11/29/2019 12:43 PM CENTRAL SERVICES TECH (NA, K, CL, CO2, diastolic congestive GLUCOSE, BUN, heart failure CREATININE, CA) N-TERMINAL PRO-BNP LAB Routine Acute on chronic 11/29/2019 12:43 PM CENTRAL SERVICES TECH diastolic congestive heart failure Name Type Priority Associated Diagnoses Order Schedule CARDIO LOOP MONITOR HEART STATION Routine 1 Occurrences starting 11/29/2019 until 11/29/2020 BASIC METABOLIC LAB Routine 1 Occurrences PANEL (NA, K, CL, starting 11/29/2019 CO2, GLUCOSE, BUN, until 12/12/2020 CREATININE, CA) N-TERMINAL PRO-BNP LAB Routine 1 Occurrences starting 11/29/2019 until 11/28/2020 Health Maintenance Due Date Last Done Comments [...] FOOT EXAM 05/02/2020 05/02/2019, 05/02/2019 CREATININE (SERUM) 05/27/2020 05/27/2019, 05/26/2019, 05/25/2019, Additional history exists documented as of this [...]
--- OUTSIDE RECORDS SUMMARY | 2020-02-03 11:31 | XMS REPORT | Summary of Care ---
:1955 Author Organization [facility] Address [address] [place] [address] Care Team Providers Name Role Phone José Block MD Primary Care Provider Reason for Visit Reason Comments LAB WORK Auth/Cert Status Reason Specialty Diagnoses / Procedures Referred By Contact Referred To Contact Phlebotomy Diagnoses Acute on chronic diastolic congestive heart failure Adc Pob Lab Draw Procedures n-term pro bnp basic met panell Professional Office Building [address] [place] [address] , [address] [place] [address] Encounter Details Date Type Department Care Team Description 11/29/2019 Design Engineer Visit [facility] Robert Irby MD [address] [facility] [address] [place] [address] Acute on chronic Professional Office Pob, Adc Lab Main diastolic congestive Building Phlebotomy heart failure Lab Professional Office Building [address] [place] [address] , [address] [place] [address] Allergies No Known Allergiesdocumented as of this [...] 2 11/29/2019 Active 100 mg 24 hr mouth 2 (two) tabletIndications: times daily. Acute on chronic diastolic congestive heart failure documented as of [...] Cardiology Robert Irby MD [address] [phone] Name Type Priority Associated Diagnoses Date/Time BASIC METABOLIC PANEL LAB Routine Acute on chronic 11/29/2019 12:43 PM PROGRAMMING ENGINEER (NA, K, CL, CO2, diastolic congestive GLUCOSE, BUN, heart failure CREATININE, CA) N-TERMINAL PRO-BNP LAB Routine Acute on chronic 11/29/2019 12:43 PM PROGRAMMING ENGINEER diastolic congestive heart failure Health Maintenance Due Date Last Done Comments [...] filedocumented in this encounter Visit Diagnoses Diagnosis Acute on chronic diastolic congestive heart failure Acute on chronic diastolic heart failure documented in this encounter documented as of this encounter
--- OUTSIDE RECORDS SUMMARY | 2020-02-03 11:31 | XMS REPORT | Summary of Care ---
:1955 Author Organization [facility] Address [address] [place] [address] Care Team Providers Name Role Phone José Block MD Primary Care Provider Reason for Referral (Routine) Status Reason Specialty Diagnoses / Referred By Referred To Procedures Contact Contact New Request Cardiology Procedures Robert Irby CARDIO LOOP MONITOR MD Chidi [facility] [address] [facility] [address] [place] [address] Reason for Visit Reason Comments New Patient Establish Local Care Auth/Cert Status Reason Specialty Diagnoses / Procedures Referred By Contact Referred To Contact Phlebotomy Diagnoses Acute on chronic diastolic congestive heart failure Adc Pob Lab Draw Procedures n-term pro bnp basic met panell Professional Office Building [address] [place] [address] , [address] [place] [address] Encounter Details Date Type Department Care Team Description 11/29/2019 Office Visit [facility] Robert Irby Atrial fibrillation, unspecified type (Primary Dx); Cardiology- Christiano Murillo MD Morbid obesity with body mass index of 40.0-49.9; [address] [place] [address] DR Stacy anticoagulation; [facility] [place], [address] Essential hypertension; [place], [place] on CPAP; [phone] Chronic heart failure with preserved ejection fraction [phone] Allergies No Known Allergiesdocumented as of this [...] Comments Blood Pressure 146/85 11/29/2019 11:29 AM TELEPHONE MAINTAINER Pulse 102 11/29/2019 11:24 AM TELEPHONE MAINTAINER Temperature - - Respiratory Rate 20 11/29/2019 11:24 AM TELEPHONE MAINTAINER Oxygen Saturation 95% 11/29/2019 11:24 AM TELEPHONE MAINTAINER Inhaled Oxygen Concentration - - Weight 132.4 kg (291 lb 14.4 oz) 11/29/2019 11:24 AM TELEPHONE MAINTAINER Height 177.8 cm (5' 10") 11/29/2019 11:24 AM TELEPHONE MAINTAINER Body Mass Index 41.88 11/29/2019 11:24 AM TELEPHONE MAINTAINER documented in this encounter Progress Notes Robert Irby MD - 11/29/2019 11:30 AM CST [facility] Cardiology Consult Note Patient: Srinivasa Phipps Date of : 1955 Date of service: José Block CHIEF COMPLAINT: Chief Complaint Patient presents with New Patient Establish Local Care History of Present Illness: Srinivasa Phipps is a 63 year old male presents to clinic to establish care with [facility] Cardiology for HFpEF and atrial fibrillation. History [...] 10/[address] Caicedo in [place]. Typical atrial flutter ablation. Reports was in [place] for few visits, then he had atrial fibrillation since then sometime [phone] onwards. Unsure if its PAF in nature. 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 We reviewed the [place] Heart Association recommendations for reduction of overall [...] for Srinivasa Phipps wellbeing. Remington Irby MD Marble Coper, Division of Cardiology [facility] documented in this encounter Plan of Treatment Date Type Specialty Care Team Description 11/29/2019 Long Distance Operator Visit Phlebotomy Robert Irby MD [address] [facility] [address] [place] [phone] Acute on chronic Pob, Adc Lab Main diastolic congestive heart failure 01/31/2020 Office Visit Cardiology Robert Irby MD [address] [facility] [address] [place] [phone] Name Type Priority Associated Diagnoses Date/Time BASIC METABOLIC PANEL LAB Routine Acute on chronic 11/29/2019 12:43 PM TELEPHONE MAINTAINER (NA, K, CL, CO2, diastolic congestive GLUCOSE, BUN, heart failure CREATININE, CA) N-TERMINAL PRO-BNP LAB Routine Acute on chronic 11/29/2019 12:43 PM TELEPHONE MAINTAINER diastolic congestive heart failure Name Type Priority [...]
--- OUTSIDE RECORDS SUMMARY | 2020-02-03 11:31 | XMS REPORT | Summary of Care ---
:1955 Author Organization [facility] - Health Address [address] [place] [address] Care Team Providers Name Role Phone José Block MD Primary Care Provider Encounter Details Date Type Department Care Team Description 11/29/2019 Orders Only [facility] Doctor Unassigned, No 301 [facility] [place] [address] [address] [place] [address] Allergies No Known Allergiesdocumented as of this [...] Date Type Specialty Care Team Description 11/29/2019 Shared Services And Outsourcing Manager Visit Phlebotomy Robert Irby MD [address] [place] [phone] Pob, Adc Lab Main 01/31/2020 Office Visit Cardiology Robert Irby MD [address] [place] [phone] Health Maintenance Due Date Last Done [...] Procedure Name Priority Date/Time Associated Diagnosis Comments ASSIGNMENT OF BENEFITS Routine 11/29/2019 12:27 PM PACK OPERATOR documented in this encounter Results Not on filedocumented in this encounter Insurance Payer Benefit Plan / Subscriber ID Effective Dates Phone Address Type Group [employer] SR[employer] AN AETNA [id number] 2015-Julián PPO [employer] t MEDICARE MEDICARE PART xxxxxxxxxxx 2018-Julián [phone] [address] Medicare A t 2 [id number] [place] [phone] documented as of this encounter
--- OUTSIDE RECORDS SUMMARY | 2020-02-03 11:31 | XMS REPORT | Summary of Care ---
:1955 Author Organization [facility] Address [address] [place] [address] Care Team Providers Name Role Phone José Block MD Primary Care Provider Reason for Visit Reason Comments NURSE VISIT home enrollment for 30 day event monitor Encounter Details Date Type Department Care Team Description 12/13/2019 Office Visit [facility] Kelvin Sylvester MD Atrial fibrillation, Cardiology- [address] unspecified type [address] (Primary Dx) Drive, [address] [place] [phone] Allergies No Known Allergiesdocumented as of this [...] 12/13/2019 2:00 PM CSTPatient was enrolled through [facility] for 30 day event monitor to be mailed to home for self hook-up. Patient notified via telephone, was already aware of plan from [facility]. documented in this encounter Plan of Treatment Date Type Specialty Care Team Description 01/31/2020 Office Visit Cardiology Robert Irby MD [address] [place] [phone] Health Maintenance Due Date Last Done [...]
--- OUTSIDE RECORDS SUMMARY | 2020-02-03 11:32 | XMS REPORT | Summary of Care ---
:1955 Author Organization [facility] Address [address] [place] [address] Care Team Providers Name Role Phone José Block MD Primary Care Provider Reason for Visit Reason Comments Notification Encounter Details Date Type Department Care Team Description 12/29/2019 Telephone [facility] Cardiology- Robert Irby MD Notification [address] [place] [address] [address] [place] [address] [place] [address] Allergies No Known Allergiesdocumented as of this encounter (statuses as of 01/03/2020) Medications Medication Sig Dispensed Refills Start Date [...] as of this encounter (statuses as of 01/03/2020) Active Problems Problem Noted Date Obesity (BMI 30-39.9) 05/26/2019 Acute exacerbation of CHF (congestive heart failure) 05/25/2019 Left lower lobe pneumonia 05/02/2019 Morbid obesity with body mass index of 40.0-49.9 05/02/2019 Atrial fibrillation with RVR 05/02/2019 Chronic anticoagulation 05/02/2019 Essential hypertension 12/18/2015 documented as of this encounter (statuses as of 01/03/2020) Immunizations Name Administration Dates Next Due Influenza [...] Cardiology Robert Irby MD [address] [address] Health Maintenance Due Date Last Done [...] Address Type Group AETNA SRC AN AETNA [id number] 2015-Julián [employer] t MEDICARE MEDICARE PART xxxxxxxxxxx 2018-Julián [phone] [address] Medicare A t 2 [id number] [place] [id number] documented as of this encounter
--- OUTSIDE RECORDS SUMMARY | 2020-02-03 11:32 | XMS REPORT | Summary of Care ---
:1955 Author Organization [facility] Address [address] [place] [address] Care Team Providers Name Role Phone José Block MD Primary Care Provider Reason for Visit Reason Comments Rx Concern/Question Encounter Details Date Type Department Care Team Description 02/01/2020 Telephone [facility] Cardiology- Robert Irby, Rx Concern/Question Christiano HUSAIN [address] [place] [address], [address] [place] [address] [place], [place] [phone] [address] Allergies No Known Allergiesdocumented as of this encounter (statuses as of 02/02/2020) Medications Medication Sig Dispensed Refills Start Date [...] hr tablet mouth 2 (two) times daily. acetaminophen-codeine Take 1 tablet by 15 tablet 0 01/30/2020 Active (TYLENOL-CODEINE #3) mouth every 6 300-30 mg (six) hours as tabletIndications: needed for Pain Acute right ankle pain, (scale 4-6). Closed fracture dislocation of right ankle, initial encounter documented as of this encounter (statuses as of 02/02/2020) Active Problems Problem Noted Date Obesity (BMI 30-39.9) 05/26/2019 Acute exacerbation of CHF (congestive heart failure) 05/25/2019 Left lower lobe pneumonia 05/02/2019 Morbid obesity with body mass index of 40.0-49.9 05/02/2019 Atrial fibrillation with RVR 05/02/2019 Chronic anticoagulation 05/02/2019 Essential hypertension 12/18/2015 documented as of this encounter (statuses as of 02/02/2020) Immunizations Name Administration Dates Next Due Influenza [...] Treatment Date Type Specialty Care Team Description 02/21/2020 Office Visit Cardiology Robert Irby MD [address] [place] [phone] Health Maintenance Due Date Last Done Comments HEPATITIS C (HCV) SCREEN 1955 EYE EXAM 1965 URINE MICROALBUMIN 1963 DTaP,Tdap,and Td Vaccines (1 - 1964 Tdap) COLONOSCOPY 2003 Zoster Recombinant Vaccine 2003 (SHINGRIX) (1 of 2) LUNG CANCER SCREEN: Recommended 2008 for age 55-80 with 30 + pack year history Medicare Wellness Visit 2018 PNEUMOCOCCAL VACCINES 65+ (1 of 2 2018 - PCV13) LDL-C 01/28/2019 01/28/2018, 12/29/2016 INFLUENZA VACCINE (#1) 2019 08/30/2016 HgA1C 11/01/2019 05/02/2019, 11/01/2018, 05/10/2018, Additional history exists FOOT EXAM 05/02/2020 05/02/2019, 05/02/2019 CREATININE (SERUM) 11/29/2020 11/29/2019, 05/27/2019, 05/26/2019, Additional history exists documented as of this encounter Results Not on filedocumented in this encounter Insurance Payer Benefit Plan / Subscriber ID Effective Dates Phone Address Type Group AETNA SRC AN AETNA [id number] 2015-Julián [employer] t MEDICARE MEDICARE PART xxxxxxxxxxx 2018-Julián [phone] [address] Medicare A t 2 [id number] [place] [id number] documented as of this encounter
--- OUTSIDE RECORDS SUMMARY | 2020-02-03 11:32 | XMS REPORT | Summary of Care ---
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 ([address]) Drive, [address] [place] [phone] Allergies No Known Allergiesdocumented as of this encounter (statuses as of 02/01/2020) Medications Medication Sig Dispensed Refills Start Date [...] as of this encounter (statuses as of 02/01/2020) Active Problems Problem Noted Date Obesity (BMI 30-39.9) 05/26/2019 Acute exacerbation of CHF (congestive heart failure) 05/25/2019 Left lower lobe pneumonia 05/02/2019 Morbid obesity with body mass index of 40.0-49.9 05/02/2019 Atrial fibrillation with RVR 05/02/2019 Chronic anticoagulation 05/02/2019 Essential hypertension 12/18/2015 documented as of this encounter (statuses as of 02/01/2020) Immunizations Name Administration Dates Next Due Influenza [...] 12/13/2019 2:00 PM CSTPatient was enrolled through [employer] for 30 day event monitor to be mailed to home for self hook-up. Patient notified via telephone, was already aware of plan from [facility]. documented in this encounter Plan of Treatment Date Type Specialty Care Team Description 02/21/2020 Office Visit Cardiology Robert Irby MD [address] [place] [phone] Health Maintenance Due Date Last Done [...]
--- OUTSIDE RECORDS SUMMARY | 2020-02-03 11:32 | XMS REPORT | Summary of Care ---
:1955 Author Organization [facility] Address [address] [place] [address] Care Team Providers Name Role Phone José Block MD Primary Care Provider Reason for Visit Reason Comments Results Encounter Details Date Type Department Care Team Description 02/01/2020 Telephone [facility] Cardiology- Robert Irby MD Results [place] [address] [facility] [address] [place] [address] [place] [address] Allergies No Known Allergiesdocumented as of this encounter (statuses as of 02/03/2020) Medications Medication Sig Dispensed Refills Start Date [...] as of this encounter (statuses as of 02/03/2020) Active Problems Problem Noted Date Obesity (BMI 30-39.9) 05/26/2019 Acute exacerbation of CHF (congestive heart failure) 05/25/2019 Left lower lobe pneumonia 05/02/2019 Morbid obesity with body mass index of 40.0-49.9 05/02/2019 Atrial fibrillation with RVR 05/02/2019 Chronic anticoagulation 05/02/2019 Essential hypertension 12/18/2015 documented as of this encounter (statuses as of 02/03/2020) Immunizations Name Administration Dates Next Due Influenza [...] Irby MD [address] [place] [phone] Health Maintenance Due Date Last Done [...] Address Type Group AETNA SRC AN AETNA [id number] 2015-Julián [employer] t MEDICARE MEDICARE PART xxxxxxxxxxx 2018-Julián [phone] [address] Medicare A t 2 [id number] [place] [phone] documented as of this encounter
--- OUTSIDE RECORDS SUMMARY | 2020-02-03 11:32 | XMS REPORT | Summary of Care ---
:1955 Author Organization [facility] Address [address] [place] [address] Care Team Providers Name Role Phone José Block MD Primary Care Provider Reason for Visit Reason Comments Assessment Encounter Details Date Type Department Care Team Description 02/02/2020 Telephone [facility] Family Medicine José Block MD Assessment - [address] [address] [place] [address] Allergies No Known Allergiesdocumented as of this [...] Cardiology Robert Irby MD [address] [address] Health Maintenance Due Date Last [...] Address Type Group AETNA SRC AN AETNA [id number] 2015-Julián [employer] t MEDICARE MEDICARE PART xxxxxxxxxxx 2018-Julián [phone] [address] Medicare A t 2 [id number] [place] [id number] documented as of this encounter
--- OUTSIDE RECORDS SUMMARY | 2020-02-03 11:32 | XMS REPORT | Summary of Care ---
:1955 Author Organization [facility] Address [address] [place] [address] Care Team Providers Name Role Phone José Block MD Primary Care Provider Reason for Referral Radiology Services (STAT) Status Reason Specialty Diagnoses / Referred By Referred To Procedures Contact Contact New Request Diagnostic Diagnoses Closed fracture dislocation of right ankle, initial encounter Juan, Radiology Procedures XR ANKLE <3 VW RIGHT Gilbert Mcneil MD [address] [place] [address] Radiology Services (STAT) Status Reason Specialty Diagnoses / Referred By Referred To Procedures Contact Contact New Request Diagnostic Diagnoses Acute right ankle pain Nadine Villarreal, Radiology Procedures XR TIBIA FIBULA 2 VW RIGHT [address] [place] [address] Radiology Services (STAT) Status Reason Specialty Diagnoses / Referred By Referred To Procedures Contact Contact New Request Diagnostic Diagnoses Acute right ankle pain Nadine Villarreal, Radiology Procedures XR ANKLE 3+ VW RIGHT [address] [place] [address] Reason for Visit Reason Comments Ankle Pain right Auth/Cert Status Reason Specialty Diagnoses / Referred By Referred To Procedures Contact Contact [facility] [address] [place] [address] [place] [address] Encounter Details Date Type Department Care Team Description 01/29/2020 - Emergency [facility] Villarreal, Nadine S, Closed fracture dislocation of right ankle, initial encounter (Primary Dx); 01/30/2020 Department PAC Acute right ankle pain [address] [facility] [address] [place] [address] [place] [address] [phone] Allergies No Known Allergiesdocumented as of this encounter (statuses as of 01/30/2020) Medications Medication Sig Dispensed Refills Start Date [...] as of this encounter (statuses as of 01/30/2020) Active Problems Problem Noted Date Obesity (BMI 30-39.9) 05/26/2019 Acute exacerbation of CHF (congestive heart failure) 05/25/2019 Left lower lobe pneumonia 05/02/2019 Morbid obesity with body mass index of 40.0-49.9 05/02/2019 Atrial fibrillation with RVR 05/02/2019 Chronic anticoagulation 05/02/2019 Essential hypertension 12/18/2015 documented as of this encounter (statuses as of 01/30/2020) Immunizations Name Administration Dates Next Due Influenza [...] Sign Reading Time Taken Comments Blood Pressure 128/60 01/30/2020 1:00 AM CDT Pulse 88 01/30/2020 1:00 AM CDT Temperature 37.1 C (98.8 F) 01/29/2020 8:21 PM CDT Respiratory Rate 12 01/30/2020 1:00 AM CDT Oxygen Saturation 90% 01/30/2020 1:00 AM CDT Inhaled Oxygen Concentration - - Weight 131.5 kg (290 lb) 01/29/2020 8:21 PM CDT Height 177.8 cm (5' 10") 01/29/2020 8:21 PM CDT Body Mass Index 41.61 01/29/2020 8:21 PM CDT documented in this encounter Discharge Instructions Neel Richards MD - 01/30/2020 DIAGNOSIS Diagnoses that have been ruled out: None Diagnoses that are still under consideration: None Final diagnoses: Acute right ankle pain Closed fracture dislocation of right ankle, initial encounter NO LIFE-THREATENING FINDINGS ON TODAY'S EXAM. PROCEDURES IN THE ER TODAY: Orders Placed This Encounter Procedures XR ANKLE 3+ VW RIGHT XR TIBIA FIBULA 2 VW RIGHT CONSULT ORTHOPAEDIC SURGERY MEDICATIONS ADMINISTERED IN THE ER TODAY: Orders Placed This Encounter Medications morpHINE injection 4 mg ondansetron (ZOFRAN (PF)) injection 4 mg morpHINE injection 4 mg ondansetron (ZOFRAN (PF)) injection 4 mg morpHINE injection 4 mg morpHINE injection 4 mg NaCl 0.9% (NS) bolus infusion 1,000 mL YOUR PRESCRIPTIONS AND PQJR-[id number]-KCAOOUN MEDICATION RECOMMENDATIONS: Tylenol #3 SPECIAL CARE INSTRUCTIONS: Follow up in clinic with Orthopedics DO NOT PUT ANY WEIGHT TO ANKLE AND KEEP ELEVATED Return to the ED if worsening of symptoms. FOLLOW-UP RECOMMENDATIONS: RECOMMEND FOLLOW-UP WITH A PRIMARY CARE PROVIDER OR SPECIALIST IN 2-5 DAYS, ESPECIALLY IF NO IMPROVEMENT IN SYMPTOMS. TO FOLLOW-UP WITHIN THE [facility], TRY THESE OPTIONS (CLINIC APPOINTMENTS AVAILABLE ON IAQT-OH-VCFY BASIS): 1. SCHEDULE AN APPOINTMENT ONLINE AT WWW[facility] 2. OR CALL THE [facility] ACC[facility] AT OR 3. OR CALL YOUR [facility] PHYSICIAN'S OFFICE DIRECTLY IF YOU ARE ALREADY AN ESTABLISHED [facility] PATIENT. OR, YOU MAY FOLLOW-UP WITH A PROVIDER OF YOUR CHOICE, SUCH : 1. A PHYSICIAN OF YOUR CHOICE 2. [facility], . LOCATIONS IN [facility] 3. [facility], [address] [place], [place]; [phone] RETURN TO ER FOR WORSENING OF SYMPTOMS. AttachmentsThe following attachments cannot be sent through Care Everywhere.Fracture, Ankle (Equatorial [place]inean)Sedation, Procedural (Adult) (Equatorial [place]inean) documented in this encounter Plan of Treatment Date Type Specialty Care Team Description 01/31/2020 Office Visit Cardiology Robert Irby MD [address] [address] Name Type Priority Associated Diagnoses Date/Time XR ANKLE 3+ VW RIGHT IMAGING STAT Acute right ankle pain 01/29/2020 9:04 PM CDT XR TIBIA FIBULA 2 VW IMAGING STAT Acute right ankle pain 01/29/2020 11:03 PM CDT RIGHT XR ANKLE <3 VW RIGHT IMAGING STAT Closed fracture 01/30/2020 12:17 AM CDT dislocation of right ankle, initial encounter Health Maintenance Due Date Last Done Comments [...] Procedure Name Priority Date/Time Associated Diagnosis Comments XR TIBIA FIBULA 2 VW STAT 01/29/2020 11:03 PM Acute right ankle pain RIGHT CDT Procedure Note - [facility], Radiant Results Inft User - 01/29/2020 11:10 PM CDT EXAM: XR TIBIA FIBULA 2 VW RIGHT HISTORY: right ankle fracture COMPARISON: None available. FINDINGS: Radiographs of the tibia-fibula demonstrate no acute fracture of the proximal tibia. Displaced fractures of the medial malleolus and distal fibula at the level of the syndesmosis are redemonstrated. The ankle mortise is disrupted. Interval placement of surrounding fiberglass splint is noted, and somewhat limits evaluation of the soft tissues. Moderate to severe joint space narrowing, subchondral sclerosis, and tricompartmental marginal osteophytosis predominantly affects the medial compartment of the knee IMPRESSION Redemonstrated displaced medial malleolar and distal fibular fractures with disruption of the ankle mortise. Interval placement of surrounding fiberglass splint. No proximal fibular fracture. Moderate to severe osteoarthrosis of the knee. Preliminary Report Dictated by Resident: Karyn Starr Ikwuagwu XR ANKLE 3+ VW RIGHT STAT 01/29/2020 9:04 PM CDT Acute right ankle pain Procedure Note - [facility], Radiant Results Inft User - 01/29/2020 10:10 PM CDT EXAM: XR ANKLE 3+ VW RIGHT HISTORY: right ankle pain/deformity COMPARISON: None available. FINDINGS: Radiographs of the right ankle demonstrate laterally displaced fractures of the medial malleolus and distal fibula slightly at the level of the syndesmosis, consistent with a Dominique C inversion ankle injury. The ankle mortise is disrupted. An os trigonum is noted. Plantar and posterior calcaneal enthesophytes are seen. A vcqbn-ih-dydekylc volume talotibial joint effusion is observed. Severe soft tissue swelling surrounds the ankle. IMPRESSION Displaced fracture of the medial malleolus and distal fibula with disruption of the ankle mortise. Small to moderate volume ankle effusion with severe ankle soft tissue swelling. Dedicated imaging of the tibia-fibula fibula is recommended to evaluate for a potential unstable fibular fracture. These findings were relayed to and acknowledged by Ms. Nadine Villarreal, PAC at 2209 on 01/29/2020. Preliminary Report Dictated by Resident: Karyn Starr Ikwuagwu CONSENT/REFUSAL FOR DIAGNOSIS AND TREATMENT Routine 01/29/2020 8:21 PM CDT documented in this encounter Results Not on filedocumented in this encounter Visit Diagnoses Diagnosis Closed fracture dislocation of right ankle, initial encounter - Primary Acute right ankle pain documented in this encounter Administered Medications Medication Order MAR Action Action Date Dose Rate Site morpHINE injection 4 mg Given 01/29/2020 9:14 PM CDT 4 mg 4 mg, Slow IV Push, ONCE, 1 dose, 01/29/20 at 2215, STAT morpHINE injection 4 mg Given 01/29/2020 10:34 PM CDT 4 mg 4 mg, Slow IV Push, ONCE, 1 dose, 01/29/20 at 2345, STAT morpHINE injection 4 mg Given 01/29/2020 10:37 PM CDT 4 mg 4 mg, Slow IV Push, ONCE, 1 dose, 01/29/20 at 2345, STAT morpHINE injection 4 mg Given 01/29/2020 10:00 PM CDT 4 mg 4 mg, Slow IV Push, ONCE, 1 dose, 01/29/20 at 2200, STAT NaCl 0.9% (NS) bolus infusion New Bag 01/29/2020 10:00 PM CDT 1,000 mL 999 mL/hr 1,000 mL at 999 mL/hr, 1,000 mL, IV Infusion, ONCE, 1 dose, 01/30/20 at 0015, STAT ondansetron (ZOFRAN (PF)) injection 4 mg Given 01/29/2020 9:14 PM CDT 4 mg 4 mg, Slow IV Push, ONCE, 1 dose, 01/29/20 at 2215, BUBBA ondansetron (ZOFRAN (PF)) injection 4 mg Given 01/29/2020 10:34 PM CDT 4 mg 4 mg, Slow IV Push, ONCE, 1 dose, 01/29/20 at 2345, BUBBA documented in this encounter Insurance Payer Benefit Plan / Subscriber ID Effective Dates Phone Address Type Group [employer] SRC AN AETNA [id number] 2015-Julián [employer] t MEDICARE MEDICARE PART xxxxxxxxxxx 2018-Julián [phone] [address] Medicare A t 2 [id number] [place] [id number] documented as of this encounter
[2020-02-03] MEDS ORDERED: CEFAZOLIN/SWI 2gm 2 GM/20 ML SYR ONE (12:27)
[2020-02-03] MEDS ORDERED: Ringers Lactate 1,000 ML IV ONE (12:27)
[2020-02-03] MEDS ORDERED: SUCCINYLCHOLINE 20 MG/ML (10 ML) IV ONE (13:25)
[2020-02-03] MEDS ORDERED: ROCURONIUM 50 MG/5 ML VIAL IV ONE (13:29)
[2020-02-03] MEDS ORDERED: propofoL 200 MG/20 ML VIAL IV ONE (13:29)
[2020-02-03] MEDS ORDERED: FENTANYL CITR 250 MCG/5 ML ONE (13:29)
[2020-02-03] MEDS ORDERED: MIDAZOLAM HCL 2 MG/2 ML INJ ONE (13:29)
[2020-02-03] MEDS ORDERED: NEOSTIGMINE 1 MG/ML -5 ML ONE (15:26)
[2020-02-03] MEDS ORDERED: GLYCOPYRROLATE 0.2 MG/ML SYR ONE (15:26)
--- NOTE | 2020-02-03 15:42 | RAD REPORT ---
EXAM DESCRIPTION: RAD - Ankle Right 2 View - 02/03/2020 3:19 pm FINDINGS: Fluoro time was 1.2 minutes. There were 26 portable C-arm views submitted from a fluoroscopic assisted placement of fracture fixat ion hardware. Images show stepwise placement of hardware. No suspicious or unexpected finding.
[2020-02-03] MEDS ORDERED: ONDANSETRON 4 MG/2 ML VIAL ONE (15:43)
[2020-02-03] MEDS ORDERED: HYDROCODONE/APAP 7.5/325 MG TAB ONE (16:17)
[2020-02-03 16:34] VITALS: TEMP 97
[2020-02-03 17:09] VITALS: BP 120/67; O2SAT 96
--- NOTE | 2020-02-03 22:53 | OP ---
Date of Procedure: 02/03/2020 Surgeon: Gilbert Martinez MD Preoperative Diagnosis: Right bimalleolar ankle fracture dislocation. Postoperative Diagnosis: Right bimalleolar ankle fracture dislocation. Procedures: 1.Right ankle open reduction and internal fixation of medial malleolus. 2.Open reduction and internal fixation of lateral malleolus using the Acumed plating system. Estimated Blood Loss: 20 mL. Complications: There are no complications. Specimens: No pathology specimens sent. Indications For Operation: Mr. Phipps is a 64-year-old male, who unfortunately injured his right an kle. I was called to see him in the emergency department as he had a fracture dislocation of his ank le and he underwent a closed reduction. The reduction appeared to be good. He had to speak with his senior research analyst regarding blood thinners and he was treated in a splint. At last visit, his skin was c lean, dry, and intact and it did wrinkle easily. Risks, benefits, and alternatives to open reduction and internal fixation of his ankle had been discussed. He says he understands things and presented, wished to proceed. Description Of Procedure: The patient was taken to the operating room and placed in the supine posit ion. General anesthesia was obtained by the staff. Following this, a well-padded tourniquet placed on superior right thigh. Right lower extremity was then prepped and draped in usual fashion. The le g was then elevated, but not exsanguinated. Tourniquet was raised. A standard medial incision was t aken down carefully through the skin and soft tissue. He does have a significant amount of thickenin g of the skin as well as chronic venous stasis, however, the skin does wrinkle. Great care was taken with the skin edges and full-thickness flaps were raised. The fracture itself is then cleaned. Two pins were then placed across the fracture site. The most posterior pin is utilized first for placem ent of a screw, which compression. A more anterior pin was then placed slightly deeper an d was then used. This screw does look quite a bit superior on the AP, but does go across the fractur e site and is holding. After this, the mortise was examined and was found to be intact. The fractur e was well reduced. Following this, the wound was irrigated and the skin was closed using interrupte d Vicryl sutures followed by glen. Following this, he is then rolled slightly to the left with a large hip bump and a standard lateral incision was taken down carefully through skin and soft tissues . Again care was taken to preserve excessive trauma to the skin. The fibula was encountered somewha t deeply and is gently exposed from the tip of the lateral malleolus to well past the fracture site. The fracture site itself was surprisingly comminuted. The posterior aspect of the distal fragment w as broken, making reduction quite difficult. Obviously, no place for a lag screw. The decision was made to place the Acumed plate distally using lock screws. This is done in standard technique for th is. This allowed for a good reduction of and fibula was then brought down the length and the remaining proximal screws were then placed. Following this, x-rays were taken, which demonstrate reapposition of the mortise and good reduction of both fractures. The lateral incision was then irr igated and closed using 2-0 Vicryl sutures followed by glen. The patient was then placed in extre crystal well-padded sterile dressing, a posterior splint with a U and taken to the recovery room in good condition. There were no complications. /MODL Voice ID: [id number] Report ID: [id number]
== END 2020-02-03 16:55 | disposition home or self-care (01) ==
LOC: OR 11:26
PROVIDERS: ATTEND Orthopaedic Surgery
PROC: 0QSJ04Z Reposition Right Fibula with Internal Fixation Device, Open Approach (ICD-10-PCS; 2020-02-03)
PROC: 0QSG04Z Reposition Right Tibia with Internal Fixation Device, Open Approach (ICD-10-PCS; principal; 2020-02-03 13:30)
DX: S82.841A Displaced bimalleolar fracture of right lower leg, initial encounter for closed fracture (principal); I48.91 Unspecified atrial fibrillation; I11.0 Hypertensive heart disease with heart failure; I50.9 Heart failure, unspecified; E78.00 Pure hypercholesterolemia, unspecified; Z87.891 Personal history of nicotine dependence
CPT/HCPCS: 93005; 85025; 80048; 36415; 73600; 27814; J2704; J0330; J2250; J3010; J2710; J0690; J7120; J2405

== ENCOUNTER 2020-02-18 00:57 | Inpatient (IN) | payer OTHER ==
--- OUTSIDE RECORDS SUMMARY | 2020-02-18 01:02 | XMS REPORT ---
:1955 [facility] Address [address] [place] [address] [address] [place] [address] Care Team Providers Name Role Phone Unavailable Unavailable Unavailable Problems This patient has no known problems. Allergies, Adverse Reactions, Alerts This patient has no known allergies or adverse reactions. Medications This patient has no known medications.
--- OUTSIDE RECORDS SUMMARY | 2020-02-18 01:12 | XMS REPORT | Summary of Care ---
:1955 [address] [facility] - Health Address [address] [place] [address] Care Team Providers Name Role Phone José Block MD Primary Care Provider Encounter Details Date Type Department Care Team Description 02/09/[address] [facility] Doctor Unassigned, No [address] [facility] Name [place] [id number] [place] [address] Allergies No Known Allergiesdocumented as of this encounter (statuses as of 02/09/2020) Medications Medication Sig Dispensed Refills Start Date [...] as of this encounter (statuses as of 02/09/2020) Active Problems Problem Noted Date Obesity (BMI 30-39.9) 05/26/2019 Acute exacerbation of CHF (congestive heart failure) 05/25/2019 Left lower lobe pneumonia 05/02/2019 Morbid obesity with body mass index of 40.0-49.9 05/02/2019 Atrial fibrillation with RVR 05/02/2019 Chronic anticoagulation 05/02/2019 Essential hypertension 12/18/2015 documented as of this encounter (statuses as of 02/09/2020) Immunizations Name Administration Dates Next Due Influenza [...] Irby MD [address] [place] [address] [place] [address] [phone] Health Maintenance Due Date Last Done Comments [...] Priority Date/Time Associated Diagnosis Comments EXTERNAL PROVIDER Routine 02/09/2020 12:01 AM CDT RECORDS documented in this encounter Results Not on filedocumented in this encounter Insurance Payer Benefit Plan / Subscriber ID Effective Dates Phone Address Type Group [employer] AN A[employer]NA [id number] 2015-Julián [employer] t MEDICARE MEDICARE PART xxxxxxxxxxx 2018-Julián [phone] [address] Medicare A t [address] [id number] [place] [id number] documented as of this encounter
[2020-02-18] MEDS ORDERED: IPRATROPIUM BROM 0.5MG/2.5ML ONE ×2 (01:18→01:27)
[2020-02-18] MEDS ORDERED: VANCOMYCIN 1 GM/VIAL ONE ×2 (01:19→01:27)
[2020-02-18] MEDS ORDERED: FENTANYL CITR 100 MCG/2 ML ONE ×2 (01:19→07:22)
[2020-02-18] MEDS ORDERED: NA CHLORIDE 0.9% 0 ML ONE ×2 (01:19→01:20)
[2020-02-18] MEDS ORDERED: LEVALBUTEROL 1.25 MG/3 ML NEB ONE (01:19)
[2020-02-18] MEDS ORDERED: ONDANSETRON 4 MG/2 ML VIAL ONE (01:19)
[2020-02-18] MEDS ORDERED: PIPER/TAZO/NS 3.375gm 0 GM/0 ML BAG ONE (01:20)
[2020-02-18] MEDS ORDERED: FAMOTIDINE 20 MG/2 ML VIAL IV ONE ×2 (01:20→01:27)
[2020-02-18] MEDS ORDERED: NA CHLORIDE 0.9% 250 ML ONE (01:27)
[2020-02-18] MEDS ORDERED: DIGOXIN 0.25 MG/ML AMP ONE (01:27)
[2020-02-18] MEDS ORDERED: NA CHLORIDE 0.9% 3,000 ML ONE (01:27)
[2020-02-18] MEDS ORDERED: PIPER/TAZO/NS 3.375gm 3.375 GM/100 ML BAG ONE (01:28)
[2020-02-18 01:35] LABS: Basophils % 0.3 % (0-1.3); Hematocrit 33.7 % (39.6-49.0); Lymphocytes % 7.9 % (15.3-44.8); MPV 8.6 fL (7.6-11.3); RBC Red Blood Cell Count 4.35 M/uL (4.33-5.43)
[2020-02-18 01:38] LABS: Protime INR 2.4
[2020-02-18 01:57] LABS: ALT/SGPT 31 U/L (12-78); AST/SGOT 23 U/L (15-37); Albumin 2.9 g/dL (3.4-5.0); Alkaline Phosphatase 158 U/L (45-117); Amylase Level 33 U/L (25-115); BUN Blood Urea Nitrogen 34 mg/dL (7-18); Bicarbonate 30 mmol/L (21-32); Bilirubin Direct 0.4 mg/dL (0-0.2); Bilirubin Total 0.9 mg/dL (0.2-1.0); CKMB Creatine Kinase MB < 1.0 ng/mL (0.3-3.6); Creatine Phosphokinase 71 U/L (39-308); Glucose Level 114 mg/dL (74-106); Lipase 179 U/L (73-393); Magnesium 2.1 mg/dL (1.8-2.4); NT PRO-BNP 2826 pg/mL (<125); Protein, Total 6.5 g/dL (6.4-8.2); Sodium Level 142 mmol/L (136-145); Troponin (Emerg Dept Use Only) 0.04 ng/mL (0.0-0.045)
--- NOTE | 2020-02-18 02:09 | EDPHYS ---
Physician Documentation [facility] Name: Srinivasa Phipps Age: 64 yrs Sex: Male : 1955 Arrival Date: 02/18/2020 Time: 00:58 Bed 4 Private MD: ED Physician Sandeep Mtz HPI: 02/17 01:06 This 64 yrs old Male presents to ER via Unassigned with complaints of chaya Diarrhea. 01:06 The patient presents to the emergency department with nausea. Onset: The chaya symptoms/episode began/occurred just prior to arrival, this morning. 01:58 The patient has shortness of breath at rest, with light activity. The patient's chaya shortness of breath is aggravated by supine position, talking, walking, is alleviated by elevating head, nebulizer treatment, application of supplemental oxygen. Possible causes: unknown. Associated signs and symptoms: Pertinent positives: non-productive cough, dizziness. The patient or guardian reports cough, flu symptoms, low-grade fever, myalgias. Historical: - Allergies: 03:34 No Known Allergies; sg - Home Meds: 07:57 amlodipine 5 mg tab 1 tab once daily [Active]; olmesartan-hydrochlorothiazide oral sv 40/12.5 mg daily oral [Active]; furosemide 40 mg Oral tab 1 tab once daily [Active]; Eliquis 5 mg oral tab 2 times per day [Active]; Metoprolol ER 100 mg BID [Active]; - PMHx: 03:34 Atrial Fib; Hypertension; Kidney stones; sg - PSHx: 03:34 Heart Surgery; sg - Immunization history:: Adult Immunizations not up to date. - Social history:: Smoking status: Patient denies any tobacco usage or history of. - Family history:: not pertinent. ROS: 01:06 Constitutional: Negative for fever, chills, and weight loss, Eyes: Negative for injury, chaya pain, redness, and discharge, ENT: Negative for injury, pain, and discharge, Neck: Negative for injury, pain, and swelling, Back: Negative for injury and pain, : Negative for injury, bleeding, discharge, and swelling, Neuro: Negative for headache, weakness, numbness, tingling, and seizure, Psych: Negative for depression, anxiety, suicide ideation, homicidal ideation, and hallucinations, Allergy/Immunology: Negative for hives, rash, and allergies, Endocrine: Negative for neck swelling, polydipsia, polyuria, polyphagia, and marked weight changes, Hematologic/Lymphatic: Negative for swollen nodes, abnormal bleeding, and unusual bruising. 01:06 Cardiovascular: Positive for palpitations. 01:06 Respiratory: Positive for cough, shortness of breath, wheezing, expiratory. 01:06 Respiratory: Positive for 01:06 MS/extremity: Positive for pain, swelling, tenderness, of the left leg. 01:06 Neuro: Positive for near syncope, weakness. Exam: 01:06 Head/Face: Normocephalic, atraumatic. Eyes: Pupils equal round and reactive to light, chaya extra-ocular motions intact. Lids and lashes normal. Conjunctiva and sclera are non-icteric and not injected. Cornea within normal limits. Periorbital areas with no swelling, redness, or edema. ENT: Nares patent. No nasal discharge, no septal abnormalities noted. Tympanic membranes are normal and external auditory canals are clear. Oropharynx with no redness, swelling, or masses, exudates, or evidence of obstruction, uvula midline. Mucous membranes moist. Neck: Trachea midline, no thyromegaly or masses palpated, and no cervical lymphadenopathy. Supple, full range of motion without nuchal rigidity, or vertebral point tenderness. No Meningismus. Chest/axilla: Normal chest wall appearance and motion. Nontender with no deformity. No lesions are appreciated. Abdomen/GI: Soft, non-tender, with normal bowel sounds. No distension or tympany. No guarding or rebound. No evidence of tenderness throughout. Back: No spinal tenderness. No costovertebral tenderness. Full range of motion. Male : Normal genitalia with no discharge or lesions. Neuro: Awake and alert, GCS 15, oriented to person, place, time, and situation. Cranial nerves II-XII grossly intact. Motor strength 5/5 in all extremities. Sensory grossly intact. Cerebellar exam normal. Normal gait. Psych: Awake, alert, with orientation to person, place and time. Behavior, mood, and affect are within normal limits. 01:06 Constitutional: The patient appears febrile. 01:06 Cardiovascular: Rate: tachycardic, Rhythm: irregularly irregular, Pulses: Pulses are 4+ in bilateral radial, brachial, femoral, popliteal, posterior tibial and and dorsalis pedis arteries.. Heart sounds: normal, Edema: 4+ edema to level of left midcalf and right midcalf, JVD: is not appreciated. 01:06 Musculoskeletal/extremity: Circulation is intact in all extremities. Sensation intact. Compartment Syndrome exam of affected extremity: is normal. Joints: All joints appear normal with full range of motion. Weight bearing: is unable to bear weight, DVT Exam: negative Homans' sign noted on exam, no appreciated bluish discoloration, pain, swelling, tenderness, erythema, increased warmth, of the left leg. Vital Signs: 01:00 BP 109 / 53; Pulse 129; Resp 24; Temp 99.9; Pulse Ox 77% on R/A; Weight 136.08 kg (R); sg Height 6 ft. 0 in. (182.88 cm) (R); Pain 10/10; 02:00 BP 90 / 40; Pulse 89 MON; Resp 22; Pulse Ox 90% on 50% Venturi mask; sg 03:30 BP 92 / 55; Pulse 87; Resp 24; Pulse Ox 90% on 50% Venturi mask; sg 04:38 BP 105 / 89; Pulse 76; Resp 26; Temp 98.8; Pulse Ox 88% on BiPAP; rr5 05:30 BP 109 / 82; Pulse 77; Resp 24; Temp 100.1(TE); Pulse Ox 99% on BiPAP; sg 06:30 BP 116 / 89; Pulse 67 MON; Resp 22 S; Pulse Ox 99% on BiPAP; sg 07:14 BP 69 / 35; Pulse 95; Resp 16; Pulse Ox 81% ; sv 07:17 BP 74 / 41; Pulse 82; Resp 14; Pulse Ox 65% on ETT ambu; sv 07:25 BP 91 / 62; Pulse 99; Resp 16; Pulse Ox 86% on 100% FiO2 ETT vent; sv 01:00 Body Mass Index 40.69 (136.08 kg, 182.88 cm) sg 05:30 pt has been administered 1 gram tylenol sg Ventilator: 07:32 Fi02: 100%; Rate: 16min; T.V.: 600ml; Peep: 5cm; Mode: CMV; ET tube: 7.5 mm (Oral); sv 07:34 Fi02: 100%; Rate: 16min; T.V.: 500ml; Peep: 10cm; sv 07:34 changed by Yokasta RT sv Procedures: 04:28 Peripheral line: by aseptic technique a peripheral line was placed in the left external [facility] jugular vein. 07:29 Intubation: Ventilated with 100% NRB prior to procedure. Intubated orally using # 4 chaya Ric blade with 7.5 mm ETT. was successful on first attempt. Ventilated with Ambu bag. Tube secured with ETT lees at right side of mouth measured 22 cm at gum. Placement verified by CXR, CO2 detector with (+) color change, auscultating bilateral breath sounds, Patient tolerated well. 07:30 Central Line: the site was prepped with Betadine, in sterile fashion, a triple lumen [facility] catheter was inserted, in the right femoral vein, in 1 attempts. placement was verified, by blood return, the site was dressed with using sterile technique, the patient tolerated the procedure, well. MDM: 00:59 Patient medically screened. [facility] 01:14 Data reviewed: vital signs, nurses notes, lab test result(s), EKG, radiologic studies, [facility] CT scan, plain films. 02/17 01:05 Order name: Basic Metabolic Panel [facility] 02/17 01:05 Order name: CBC with Diff; Complete Time: 03:32 [facility] 02/17 01:05 Order name: LFT's; Complete Time: 02:03 [facility] 02/17 01:05 Order name: Magnesium; Complete Time: 02:03 [facility] 02/17 01:05 Order name: NT PRO-BNP; Complete Time: 02:03 [facility] 02/17 01:05 Order name: PT-INR; Complete Time: 02:09 [facility] 02/17 01:05 Order name: Troponin (emerg Dept Use Only); Complete Time: 02:03 [facility] 02/17 01:05 Order name: Amylase, Serum; Complete Time: 02:03 [facility] 02/17 01:05 Order name: Blood Culture Adult (2) [facility] 02/17 01:05 Order name: Ckmb; Complete Time: 02:03 [facility] 02/17 01:05 Order name: CPK; Complete Time: 02:03 [facility] 02/17 01:05 Order name: Lactate; Complete Time: 02:03 [facility] 02/17 01:05 Order name: Lipase; Complete Time: 02:03 [facility] 02/17 01:05 Order name: Procalcitonin; Complete Time: 03:32 [facility] 02/17 01:05 Order name: Ptt, Activated; Complete Time: 02:09 [facility] 02/17 01:05 Order name: Urine Microscopic Only [facility] 02/17 01:05 Order name: Urine Culture [facility] 02/17 01:05 Order name: Stool Culture [facility] 02/17 01:05 Order name: Fecal Leukocyte Stain [facility] 02/17 01:06 Order name: Basic Metabolic Panel; Complete Time: 02:03 EDMS 02/17 01:15 Order name: COVID-19 [facility] 02/17 01:15 Order name: Influenza Screen (a \T\ B); Complete Time: 04:07 [facility] 02/17 01:15 Order name: TSH; Complete Time: 03:32 [facility] 02/17 01:22 Order name: Glucose, Ancillary Testing; Complete Time: 02:03 EDMS 02/17 02:19 Order name: Strep; Complete Time: 04:07 [facility] 02/17 02:30 Order name: Manual Differential; Complete Time: 03:32 EDMS 02/17 03:57 Order name: ABG; Complete Time: 06:19 02/17 05:13 Order name: Lactate Sepsis 2 HR Follow-up; Complete Time: 06:19 EDMS 02/17 06:20 Order name: ABG [facility] 02/17 01:05 Order name: XRAY Chest (1 view) [facility] 02/17 01:05 Order name: EKG; Complete Time: 01:07 [facility] 02/17 01:05 Order name: Cardiac monitoring; Complete Time: 03:46 [facility] 02/17 01:05 Order name: EKG - Nurse/Tech; Complete Time: 03:46 [facility] 02/17 01:05 Order name: IV Saline Lock; Complete Time: 03:46 [facility] 02/17 01:05 Order name: Labs collected and sent; Complete Time: 03:46 [facility] 02/17 01:05 Order name: O2 Per Protocol; Complete Time: 03:46 [facility] 02/17 01:05 Order name: O2 Sat Monitoring; Complete Time: 03:46 [facility] 02/17 01:05 Order name: Accucheck; Complete Time: 03:45 [facility] 02/17 01:05 Order name: IV Saline Lock - Large Bore; Complete Time: 03:45 [facility] 02/17 01:05 Order name: CT Traumagram (Head C Spine CAP wo con) [facility] 02/17 04:24 Order name: BIPAP [facility] 02/17 07:22 Order name: Chest Single View XRAY rr5 02/17 07:38 Order name: ABG Arterial Blood Gas EDMS 02/17 07:58 Order name: RAD EDMS 02/17 02:10 Order name: IV Saline Lock - Large Bore; Complete Time: 03:46 chaya 02/17 06:20 Order name: Villarreal; Complete Time: 07:34 chaya 02/17 07:21 Order name: Intubation Setup; Complete Time: 07:21 sg Administered Medications: 01:17 CANCELLED (Duplicate Order): vancoMYCIN 1 grams IVPB once over 2 hrs chaya 01:20 Drug: NS 0.9% (30 ml/kg) 30 ml/kg Route: IV; Rate: bolus; Site: right antecubital; sg 01:20 Drug: Zosyn 3.375 grams Route: IVPB; Infused Over: 60 mins; Site: right antecubital; sg 02:15 Follow up: Response: No adverse reaction; IV Status: Completed infusion sg 01:20 Drug: Zofran (Ondansetron) 4 mg Route: IVP; Site: right antecubital; rr5 02:20 Follow up: Response: No adverse reaction rr5 01:22 Drug: fentaNYL (PF) 25 mcg {Note: rass 0.} Route: IVP; Site: right antecubital; rr5 02:20 Follow up: Response: No adverse reaction; RASS: Alert and Calm (0) rr5 01:30 Drug: Pepcid 20 mg Route: IVP; Site: right antecubital; sg 02:30 Follow up: Response: No adverse reaction rr5 01:30 Drug: Xopenex 3.75 mg Route: Inhalation; sg 01:30 Drug: AtroVENT Aerosol 0.5 mg Route: Inhalation; sg 01:40 Drug: Digoxin 0.5 mg Route: IVP; Site: right antecubital; sg 02:15 Follow up: Response: No adverse reaction sg 02:00 Drug: vancoMYCIN 2 grams Route: IVPB; Rate: calculated rate; Site: right antecubital; sg 04:00 Follow up: Response: No adverse reaction; IV Status: Completed infusion; IV Intake: rr5 250ml 04:00 Drug: Potassium Effervescent Tablet 25 mEq Route: PO; rr5 05:00 Follow up: Response: No adverse reaction sg 04:15 Drug: NS 0.9% with KCl 20 mEq/L 1000 ml {Note: left ej.} Route: IV; Rate: 125 ml/hr; rr5 Site: Other; 08:19 Follow up: Response: No adverse reaction; IV Status: Infusion continued upon admission sv 04:40 Drug: SOLU-Medrol 40 mg Route: IVP; Site: right antecubital; rr5 06:30 Follow up: Response: No adverse reaction sg 04:40 Drug: Tylenol 1000 mg Route: PO; rr5 06:30 Follow up: Response: No adverse reaction; Temperature is unchanged sg 07:15 Drug: Etomidate 20 mg Route: IVP; Site: right antecubital; sg 08:18 Follow up: Response: No adverse reaction sv 07:17 Drug: Rocuronium 100 mg Route: IVP; Site: right antecubital; sg 08:18 Follow up: Response: No adverse reaction sv 07:20 Drug: Norepinephrine (4 mg/250 mL D5W) 4 mcg/min {Note: started at 5 mcg/min by Javed vora RN.} Route: IV; Rate: calculated rate; Site: right femoral; 08:18 Follow up: Response: No adverse reaction; IV Status: Infusion continued upon admission sv Disposition: 02/18/20 02:08 Hospitalization ordered by Dae Morris for Inpatient Admission. Preliminary diagnosis are Atrial fibrillation and flutter - with rvr, Cellulitis and acute lymphangitis of other parts of limb, Diarrhea, unspecified, Unspecified kidney failure, Obesity, unspecified, Sepsis, unspecified organism, Pneumonia, unspecified organism, Hypokalemia, Hypoxemia, Elevated white blood cell count, Bandemia, Hypotension. - Bed requested for Intensive Care Unit. - Status is Inpatient Admission. sv - Condition is Fair. - Problem is new. - Symptoms have improved. Signatures: Dispatcher [employer] EDNery Russell RN RN sv Gay, Steven, RN RN sg Anderson, Corey, MD MD cha Botello, Elizabeth eb Roque, Raymond, RN RN rr5 Corrections: (The following items were deleted from the chart) 01:17 01:05 vancoMYCIN 1 grams IVPB once over 2 hrs ordered. chaya chaya 02:40 02:08 Hospitalization Ordered by Dae Morris MD for Inpatient Admission. Preliminary chaya diagnosis is Atrial fibrillation and flutter - with rvr; Cellulitis and acute lymphangitis of other parts of limb; Diarrhea, unspecified; Unspecified kidney failure; Obesity, unspecified; Sepsis, unspecified organism; Pneumonia, unspecified organism; Hypokalemia; Hypoxemia. Bed requested for Telemetry/MedSurg (Inpatient). Status is Inpatient Admission. Condition is Fair. Problem is new. Symptoms have improved. chaya 04:24 02:40 02/18/2020 02:08 Hospitalization Ordered by Dae Morris MD for Inpatient chaya Admission. Preliminary diagnosis is Atrial fibrillation and flutter - with rvr; Cellulitis and acute lymphangitis of other parts of limb; Diarrhea, unspecified; Unspecified kidney failure; Obesity, unspecified; Sepsis, unspecified organism; Pneumonia, unspecified organism; Hypokalemia; Hypoxemia; Elevated white blood cell count; Bandemia. Bed requested for Telemetry/MedSurg (Inpatient). Status is Inpatient Admission. Condition is Fair. Problem is new. Symptoms have improved. chaya 04:26 04:24 02/18/2020 02:08 Hospitalization Ordered by Dae Morris MD for Inpatient chaya Admission. Preliminary diagnosis is Atrial fibrillation and flutter - with rvr; Cellulitis and acute lymphangitis of other parts of limb; Diarrhea, unspecified; Unspecified kidney failure; Obesity, unspecified; Sepsis, unspecified organism; Pneumonia, unspecified organism; Hypokalemia; Hypoxemia; Elevated white blood cell count; Bandemia. Bed requested for Intensive Care Unit. Status is Inpatient Admission. Condition is Fair. Problem is new. Symptoms have improved. chaya 05:00 04:44 LACTATE+C.LAB.BRZ ordered. EDVT EDMS 07:41 04:26 02/18/2020 02:08 Hospitalization Ordered by Dae Morris MD for Inpatient eb Admission. Preliminary diagnosis is Atrial fibrillation and flutter - with rvr; Cellulitis and acute lymphangitis of other parts of limb; Diarrhea, unspecified; Unspecified kidney failure; Obesity, unspecified; Sepsis, unspecified organism; Pneumonia, unspecified organism; Hypokalemia; Hypoxemia; Elevated white blood cell count; Bandemia; Hypotension. Bed requested for Intensive Care Unit. Status is Inpatient Admission. Condition is Fair. Problem is new. Symptoms have improved. chaya 08:19 07:41 02/18/2020 02:08 Hospitalization Ordered by Dae Morris MD for Inpatient sv Admission. Preliminary diagnosis is Atrial fibrillation and flutter - with rvr; Cellulitis and acute lymphangitis of other parts of limb; Diarrhea, unspecified; Unspecified kidney failure; Obesity, unspecified; Sepsis, unspecified organism; Pneumonia, unspecified organism; Hypokalemia; Hypoxemia; Elevated white blood cell count; Bandemia; Hypotension. Bed requested for Intensive Care Unit. Status is Inpatient Admission. Condition is Fair. Problem is new. Symptoms have improved. eb
--- NOTE | 2020-02-18 02:09 | ER ---
Nurse's Notes [facility] Name: Srinivasa Phipps Age: 64 yrs Sex: Male : 1955 Arrival Date: 02/18/2020 Time: 00:58 Bed 4 Private MD: Diagnosis: Atrial fibrillation and flutter-with rvr;Cellulitis and acute lymphangitis of other parts of limb;Diarrhea, unspecified;Unspecified kidney failure;Obesity, unspecified;Sepsis, unspecified organism;Pneumonia, unspecified organism;Hypokalemia;Hypoxemia;Elevated white blood cell count;Bandemia;Hypotension Presentation: 02/17 01:00 Chief complaint: EMS states: pt reports today, having body aches, chills, and diarrhea. sg Coronavirus screen: Surgical mask placed on patient. Patient moved to private room, placed in contact and droplet isolation with eye protection until further assessment. Patient reports shortness of breath or difficulty breathing. Patient reports a measured and/or subjective temperature greater than 100.4F. Patient denies travel on a cruise ship or to a country the [facility] currently lists as an affected area. Patient denies contact with known and/or suspected case of COVID-19. Infection Prevention Nurse has been notified of patient in isolation for probable COVID-19. Ebola Screen: Patient negative for fever greater than or equal to 101.5 degrees Fahrenheit, and additional compatible Ebola Virus Disease symptoms Patient denies exposure to infectious person. Patient denies travel to an Ebola-affected area in the 21 days before illness onset. No symptoms or risks identified at this time. Initial Sepsis Screen: Does the patient meet any 2 criteria? RR > 20 per min. HR > 90 bpm. Yes Does the patient have a suspected source of infection? Yes: Productive cough/pneumonia Skin breakdown/wound. Risk Assessment: Do you want to hurt yourself or someone else? Patient reports no desire to harm self or others. 01:00 Method Of Arrival: EMS: [facility] 01:00 Acuity: KORY 2 sg Historical: - Allergies: 03:34 No Known Allergies; sg - Home Meds: 07:57 amlodipine 5 mg tab 1 tab once daily [Active]; olmesartan-hydrochlorothiazide oral sv 40/12.5 mg daily oral [Active]; furosemide 40 mg Oral tab 1 tab once daily [Active]; Eliquis 5 mg oral tab 2 times per day [Active]; Metoprolol ER 100 mg BID [Active]; - PMHx: 03:34 Atrial Fib; Hypertension; Kidney stones; sg - PSHx: 03:34 Heart Surgery; sg - Immunization history:: Adult Immunizations not up to date. - Social history:: Smoking status: Patient denies any tobacco usage or history of. - Family history:: not pertinent. Screenin:00 Abuse screen: Denies threats or abuse. Denies injuries from another. Nutritional sg screening: No deficits noted. Tuberculosis screening: No symptoms or risk factors identified. Never had TB. Fall Risk None identified. Assessment: 01:00 General: Appears uncomfortable, obese, unkempt, well developed, well nourished, sg Behavior is cooperative, appropriate for age, restless. Pain: Complains of pain in left midcalf and left leg Quality of pain is described as aching, tender. Neuro: Level of Consciousness is awake, alert, obeys commands, Oriented to person, place, time, Speech is normal, Facial symmetry appears normal. Cardiovascular: Heart tones S1 S2 present Patient's skin is warm and dry. Chest pain is denied. Respiratory: Airway is patent Respiratory effort is even, unlabored, Respiratory pattern is regular, symmetrical. GI: Abdomen is round non-distended, Reports diarrhea, nausea. : No signs and/or symptoms were reported regarding the genitourinary system. EENT: No signs and/or symptoms were reported regarding the EENT system. Derm: Skin is mottled, Skin temperature is hot Rash noted that is red, on left calf and left mcfarlane. Musculoskeletal: Circulation, motion, and sensation intact. Range of motion: intact in all extremities, Reports pain in left midcalf. 02:00 Reassessment: Patient appears in no apparent distress at this time. Patient and/or sg family updated on plan of care and expected duration. Pain level reassessed. Patient states symptoms have not improved. 03:30 Reassessment: Patient appears in no apparent distress at this time. Patient and/or sg family updated on plan of care and expected duration. Pain level reassessed. Patient states symptoms have not improved. 03:35 Reassessment: Patient appears in no apparent distress at this time. Patient and/or sg family updated on plan of care and expected duration. Pain level reassessed. at bedside evaluating pt at this time. 04:05 Reassessment: dr. hylton came and examining the patient. with verbal order of ABG and rr5 after the third liter call me for the BP. 04:40 Reassessment: dr hylton informed thru phone for the status of the patient. he said he rr5 will reassess after an hour. 05:20 Reassessment: Patient appears in no apparent distress at this time. Patient and/or sg family updated on plan of care and expected duration. Pain level reassessed. contacted, updated on VS, and lactate results at this time post IVF resuscitation, orders to administer 1/2 NS at 50 mL per hour a telephone order obtained with 100 % read back, pt medicated as ordered. 06:00 Reassessment: pt appears restless, pt is aa\\T\\ox4 at this time, asked pt if he would like me to notify his of his condition, pt states "no, dont worry about it.". 06:30 Reassessment: Patient appears in no apparent distress at this time. pt transferred to a hospital bed at this time, pt reports feeling better, awaiting a bed assignment for admission, will continue to monitor. 07:00 Reassessment: RECD REPORT FROM MARV PAK. 64YO WM P/W DIARRHEA AND MALAISE, HYPOXIC EN bp ROUTE. WORSENING ABG AND LACTIC ON BIPAP, PT MOVED TO SR4 FOR INTUBATION. Neuro: Level of Consciousness is unresponsive, Oriented to none INTUBATED. Cardiovascular: Rhythm is sinus rhythm. Respiratory: Airway via oral intubation Respiratory effort is AC14 ON VENT Breath sounds are coarse bilaterally. Breath sounds with crackles bilaterally. 07:10 Reassessment: pt transported to ER bed 4 for intubation due to results of repeat ABG. sg 07:10 Reassessment: bedside report given to Javed PAK. 08:20 Reassessment: PT AIDEN WITH TRANSPORT TEAM FOR ICU. bp 08:35 Reassessment: Received PUI # ([facility] [id number]), [place] from lab notified. iw Vital Signs: 01:00 BP 109 / 53; Pulse 129; Resp 24; Temp 99.9; Pulse Ox 77% on R/A; Weight 136.08 kg (R); sg Height 6 ft. 0 in. (182.88 cm) (R); Pain 10/10; 02:00 BP 90 / 40; Pulse 89 MON; Resp 22; Pulse Ox 90% on 50% Venturi mask; sg 03:30 BP 92 / 55; Pulse 87; Resp 24; Pulse Ox 90% on 50% Venturi mask; sg 04:38 BP 105 / 89; Pulse 76; Resp 26; Temp 98.8; Pulse Ox 88% on BiPAP; rr5 05:30 BP 109 / 82; Pulse 77; Resp 24; Temp 100.1(TE); Pulse Ox 99% on BiPAP; sg 06:30 BP 116 / 89; Pulse 67 MON; Resp 22 S; Pulse Ox 99% on BiPAP; sg 07:14 BP 69 / 35; Pulse 95; Resp 16; Pulse Ox 81% ; sv 07:17 BP 74 / 41; Pulse 82; Resp 14; Pulse Ox 65% on ETT ambu; sv 07:25 BP 91 / 62; Pulse 99; Resp 16; Pulse Ox 86% on 100% FiO2 ETT vent; sv 01:00 Body Mass Index 40.69 (136.08 kg, 182.88 cm) sg 05:30 pt has been administered 1 gram tylenol sg ED Course: 00:58 Patient arrived in ED. ds1 00:59 Sandeep Mtz MD is Attending Physician. chaya 01:00 Initial lab(s) drawn, by me, sent to lab. First set of blood cultures drawn by me. sg Inserted saline lock: 20 gauge in right antecubital area, using aseptic technique. Blood collected. 01:11 Marv Randall RN is Primary Nurse. rr5 01:15 Second set of blood cultures drawn by me. sg 01:25 Flu and/or RSV swab sent to lab. Strep swab sent to lab. a COVID 19 swab has been sg obtained per hospital protocol and sent to outside laboratory for shipment. 01:51 Radiology exam delayed due to Patient being cleaned by nursing staff. kw1 01:58 Notified ED physician of a critical lab result(s). lactate of 4.3 Dr Mtz notified. bb 02:04 Dae Morris MD is Hospitalizing Provider. chaya 02:10 XRAY Chest (1 view) In Process Unspecified. EDMS 03:20 CT Traumagram (Head C Spine CAP wo con) In Process Unspecified. EDMS 03:29 Gilbert Lindo, RN is Primary Nurse. sg 03:30 Missed attempt(s): 22 gauge in right hand. Bleeding controlled, band aid applied, sg catheter tip intact. 03:32 Triage completed. sg 04:15 Inserted saline lock: 18 gauge in left EJ, using aseptic technique. ,using aseptic rr5 technique. by dr. mtz. 05:01 Repeat lab(s) drawn. by me, sent to lab. a repeat lactate has been drawn at this time. sg 07:00 Patient has correct armband on for positive identification. Placed in gown. Bed in low sv position. Side rails up X2. satellite project site monitor on. Pulse ox on. NIBP on. 07:00 Arm band placed on. sv 07:10 Assisted provider with intubation using 7.5 mm ETT via oral route. ET tube secured at sv 22cm at the gums. Set up intubation tray. Intubated by Eleno MILLER Placement verified by CXR, CO2 detector w/ + color change, auscultating bilateral breath sounds, Patient tolerated well. 07:18 Villarreal cath inserted, using sterile technique, 16 Fr., by ED staff, balloon inflated, to sv gravity drainage, returned clear yellow urine. Patient tolerated well. 07:24 Assisted provider with central line placement. Set up central line tray. Triple lumen sv line placed in right femoral. Line placed by Sandeep Mtz MD Placement verified by blood return, Dressed with Tegaderm, Patient tolerated well. Before procedure, did Practitioner(s) obtain informed consent? No. Patient \\T\\ family education about procedure, CLABSI prevention and S/S of infection? No. Time-out/Briefing performed prior to start of procedure? Yes. Was handwashing/sanitizing done immediately prior to procedure? Yes. Was patient positioned to in a way to prevent air embolism? Yes. Was procedure site sterilized? Yes, with chlorhexidine. Was the site allowed to dry? Yes. Was local anesthetic and/or sedation utilized? Yes. During the procedure, did the Practitioner(s) maintain a sterile field? Yes. Were unused ports clamped during insertion? Yes. Was a 2nd qualified MD obtained after 3 unsuccessful insertion attempts? Yes. Was blood aspirated from each lumen? Yes. After the procedure, did the Practitioner(s) clean the site and apply a sterile dressing? Yes. 07:28 BIPAP Sent. sv 07:34 Javed Land, RN is Primary Nurse. sv 07:57 Chest Single View XRAY Sent. sv 08:17 Patient admitted, IV remains in place. intact. sv 08:18 ABG Sent. sv Administered Medications: 01:17 CANCELLED (Duplicate Order): vancoMYCIN 1 grams IVPB once over 2 hrs chaya 01:20 Drug: NS 0.9% (30 ml/kg) 30 ml/kg Route: IV; Rate: bolus; Site: right antecubital; sg 01:20 Drug: Zosyn 3.375 grams Route: IVPB; Infused Over: 60 mins; Site: right antecubital; sg 02:15 Follow up: Response: No adverse reaction; IV Status: Completed infusion sg 01:20 Drug: Zofran (Ondansetron) 4 mg Route: IVP; Site: right antecubital; rr5 02:20 Follow up: Response: No adverse reaction rr5 01:22 Drug: fentaNYL (PF) 25 mcg {Note: rass 0.} Route: IVP; Site: right antecubital; rr5 02:20 Follow up: Response: No adverse reaction; RASS: Alert and Calm (0) rr5 01:30 Drug: Pepcid 20 mg Route: IVP; Site: right antecubital; sg 02:30 Follow up: Response: No adverse reaction rr5 01:30 Drug: Xopenex 3.75 mg Route: Inhalation; sg 01:30 Drug: AtroVENT Aerosol 0.5 mg Route: Inhalation; sg 01:40 Drug: Digoxin 0.5 mg Route: IVP; Site: right antecubital; sg 02:15 Follow up: Response: No adverse reaction sg 02:00 Drug: vancoMYCIN 2 grams Route: IVPB; Rate: calculated rate; Site: right antecubital; sg 04:00 Follow up: Response: No adverse reaction; IV Status: Completed infusion; IV Intake: rr5 250ml 04:00 Drug: Potassium Effervescent Tablet 25 mEq Route: PO; rr5 05:00 Follow up: Response: No adverse reaction sg 04:15 Drug: NS 0.9% with KCl 20 mEq/L 1000 ml {Note: left ej.} Route: IV; Rate: 125 ml/hr; rr5 Site: Other; 08:19 Follow up: Response: No adverse reaction; IV Status: Infusion continued upon admission sv 04:40 Drug: SOLU-Medrol 40 mg Route: IVP; Site: right antecubital; rr5 06:30 Follow up: Response: No adverse reaction sg 04:40 Drug: Tylenol 1000 mg Route: PO; rr5 06:30 Follow up: Response: No adverse reaction; Temperature is unchanged sg 07:15 Drug: Etomidate 20 mg Route: IVP; Site: right antecubital; sg 08:18 Follow up: Response: No adverse reaction sv 07:17 Drug: Rocuronium 100 mg Route: IVP; Site: right antecubital; sg 08:18 Follow up: Response: No adverse reaction sv 07:20 Drug: Norepinephrine (4 mg/250 mL D5W) 4 mcg/min {Note: started at 5 mcg/min by Javed vora RN.} Route: IV; Rate: calculated rate; Site: right femoral; 08:18 Follow up: Response: No adverse reaction; IV Status: Infusion continued upon admission sv Intake: 04:00 IV: 250ml; Total: 250ml. rr5 Ventilator: 07:32 Fi02: 100%; Rate: 16min; T.V.: 600ml; Peep: 5cm; Mode: CMV; ET tube: 7.5 mm (Oral); sv 07:34 Fi02: 100%; Rate: 16min; T.V.: 500ml; Peep: 10cm; sv 07:34 changed by Yokasta MORENO sv Outcome: 02:08 Decision to Hospitalize by Provider. [facility] 08:17 Admitted to ICU accompanied by nurse, accompanied by tech, via stretcher, room 8, with sv oxygen, on monitor, with chart, Report called to ASSISTANT PROFESSOR OF BIOCHEMISTRY by Samantha PAK 08:17 Condition: stable 08:17 Instructed on the need for admit. 08:19 Patient left the ED. sv Signatures: Dispatcher [employer] Nery Brar RN RN sv Gay, Steven, RN RN sg Anderson, Corey, MD MD cha Sanford, Demi ds1 Aneta Morillo RN RN bb Williams, Irene, RN RN iw Peltier, Brian, RN RN bp Wilhelm, Kimberly kw1 Marv Randall RN RN rr5 Corrections: (The following items were deleted from the chart) 07:21 07:00 Reassessment: RECD REPORT FROM MARV PAK. 64YO WM P/W DIARRHEA AND HYPOXIA. rr5 INTUBATION IN PROCESS rr5 07:29 07:10 Assisted provider with intubation using 7.5 mm ETT via oral route. ET tube sv secured at 22cm at the teeth. Set up intubation tray. Intubated by Eleno MILLER Placement verified by CXR, CO2 detector w/ + color change, auscultating bilateral breath sounds, Patient tolerated well. sv
[2020-02-18 02:32] LABS: Anisocytosis 1+; Blood Morphology Comment NOTED (NOT SEEN); Burr Cells 1+; Elliptocytes 1+; Hypochromasia 1+; Platelet Estimate ADEQ; Poikilocytosis 1+
[2020-02-18] MEDS ORDERED: NS KCL 20MEQ 1,000 ML IV ONE (03:09)
[2020-02-18] MEDS ORDERED: POTASSIUM 25 MEQ EFFERV TAB ONE (03:09)
[2020-02-18 04:11] LABS: Arterial Blood Carboxyhemoglob 1.6 % (0-1.5); Blood Gas Oxyhemoglobin 68.8 % (94-97); Blood O2 Saturation 70.5 % (92-98.5)
--- NOTE | 2020-02-18 04:33 | P.HP ---
Certification for Inpatient Patient admitted to: Inpatient With expected LOS: >2 Midnights Patient will require the following post-hospital care: None Practitioner: I am a practitioner with admitting privileges, knowledge of patient current condition, hospital course, and medical plan of care. Services: Services provided to patient in accordance with Admission requirements found in Title 42 Section 412.3 of the Code of Federal Regulations Patient History Date of Service: 02/18/20 Primary Care Provider: Dr. Block; Orthopedics-Dr. Martinez; Cardiology-Dr. Irby Reason for admission: Fall, SOB History of Present Illness: 64-year-old male with history of atrial fibrillation on chronic anti coagulation therapy, hypertension, COPD, tobacco and alcohol abuse. Patient also likely with underlying obstructive sleep apnea. Patient was brought in by EMS after the patient had fallen at home. Patient reports that he had surgery-right ankle open reduction/internal fixation of medial malleolus and open reduction/internal fixation of lateral malleolus due to right bimalleolar ankle fracture dislocation on 02/03/2020 by Orthopedic-Dr. Martinez. Since that time his mobility has been compromise. Over the last several days he has been reporting some cough, congestion. Over the last 12:48 p.m. he noted some fever and chills. He has been coming very weak. Some shortness of breath noted. EMS was called due to his fall. When EMS arrived ER nurse and reported that his sats were in the 70s with blood pressure decreased is well. Patient denies any nausea, vomiting. He denies any chest pain. No recent sick contacts noted. No recent travel. Patient has been primarily at home. In the ER patient was evaluated. Patient initially hypoxic and with low blood pressure. Sepsis protocol initiated. Patient has received 2 L of normal saline. 3rd L currently being given. Patient on Venti mask at this time. Blood pressure slightly decreased. White count 13, hemoglobin 10.4, platelet count within normal range. Sodium 142, potassium 3.0. BUN of 36, creatinine 1.86. GFR of 37. Bicarb 30. Glucose 114. BNP elevated at over 2000. Pro calcium elevated at 10.9. Lactic acid also elevated at 4.3. INR 2.4. CT traumagram showed no acute findings to indicate any fracture. Heart appeared myelin large. No pericardial effusion noted. No pleural effusion or pleural thickening noted No pneumothorax noted patchy opacities throughout both lungs noted. Influenza test negative. Strep test positive. COVID viral test obtained. Patient was given IV vancomycin, Zosyn, and Solu-Medrol in the emergency room. Patient initiated on bolus protocol. Patient admitted for further evaluation and treatment. When I saw the patient ER, blood pressure slightly decreased. Patient is obese. Likely underlying obstructive sleep apnea. Patient was cooperative. Patient with increased sedation. Allergies No Known Allergies Allergy (Verified 02/02/20 10:56) Home medications list reviewed: Yes Home Medications: Amlodipine Besylate 1 tab PO DAILY 02/02/20 Apixaban [Eliquis] 1 tab PO BID 02/02/20 Furosemide 1 tab PO DAILY 02/02/20 Metoprolol Succinate [Toprol Xl] 1 tab PO BID 02/02/20 Olmesartan/Hydrochlorothiazide [Olmesartan-Hctz 40-12.5 mg Tab] 1 each PO DAILY 02/02/20 - Past Medical/Surgical History Diabetic: No -: Atrial fibrillation/chronic anti coagulation therapy -: Hypertension -: COPD -: Alcohol abuse -: Tobacco abuse -: Suspect underlying obstructive sleep apnea -: Suspect underlying CHF -: Morbid obesity -: Recent right ankle surgery Psychosocial/ Personal History: Patient lives at home. - Family History Family History: Reviewed- Non-Contributory - Social History Smoking Status: Smoker current status UNK Alcohol use: Yes CD- Drugs: No Caffeine use: Yes Place of Residence: Home Review of Systems General: Chills, Malaise, As per HPI Eyes: Unremarkable ENT: Nose Congestion, As per HPI Respiratory: Shortness of Breath, As per HPI Cardiovascular: As per HPI Gastrointestinal: Unremarkable Genitourinary: Unremarkable Musculoskeletal: Pedal edema, As per HPI Integumentary: Unremarkable Neurological: Unremarkable Lymphatics: Unremarkable Physical Examination - Physical Exam General: Alert, Oriented x3, Cooperative, Mild distress HEENT: Atraumatic, Normocephalic, Other (Some nasal congestion noted), EOMI Neck: Supple Respiratory: Diminished (Diminished to the bases), Expiratory wheezes (Mild) Cardiovascular: Irregular heart rate/rhythm (AFib rate controlled) Gastrointestinal: Normal bowel sounds, Soft and benign, Non-distended, No tenderness, No masses, No rebound, No guarding, Other (Morbid obesity) Musculoskeletal: Other (Some erythema to the left lower extremity between the ankle and knee. Some skin breakdown noted. Right lower extremity with cast.) Integumentary: Other (As above) Neurological: Normal speech, Normal strength at 5/5 x4 extr, Normal tone, Normal affect - Studies Laboratory Data (last 24 hrs) 02/18/20 01:10: PT 27.8 H, INR 2.40, APTT 28.4 02/18/20 01:10: WBC 13.0 H, Hgb 10.4 L, Hct 33.7 L, Plt Count 376 02/18/20 01:10: Sodium 142, Potassium 3.0 L, BUN 34 H, Creatinine 1.86 H, Glucose 114 H, Magnesium 2.1, Total Bilirubin 0.9, AST 23, ALT 31, Alkaline Phosphatase 158 H, Amylase 33, Lipase 179 Microbiology Data (last 24 hrs): 02/18/20 02:20 Nasopharnyx Influenza Type A Antigen Screen - Final 02/18/20 02:20 Nasopharnyx Influenza Type B Antigen Screen - Final 02/18/20 02:20 Throat Group A Streptococcus Rapid Screen - Final Assessment and Plan - Plan Impression: Acute on chronic respiratory failure with hypoxia/sepsis secondary to bilateral streptococcal pneumonia complicated with COPD exacerbation with suspected underlying obstructive sleep apnea Acute on chronic renal disease stage 3 suspect volume depletion Atrial fibrillation on chronic anti coagulation therapy Hypertension Possible underlying diastolic chronic CHF GERD Alcohol/tobacco abuse Recent orthopedic surgery-Right ankle open reduction and internal fixation of medial malleolus/Open reduction and internal fixation of lateral malleolus due to right bimalleolar ankle fracture dislocation Plan: Acute on chronic respiratory failure with hypoxia/sepsis secondary to bilateral streptococcal pneumonia complicated with COPD exacerbation with suspected underlying obstructive sleep apnea: Patient be admitted for further evaluation and treatment. Patient will go to ICU. Will reassess and determine if we can downgrade within the next 2-3 hr. Case discussed at length with pulmonology. Will continue sepsis protocol and management. Will reassess after 3 L given. May need to hold IV fluids and monitor closely due to his CHF. Will adjust IV antibiotic therapy to cefepime and vancomycin. Patient was positive for strep. Pharmacy to monitor and adjust. Patient will get BiPAP due to hypoxia and underlying COPD. Maintain oxygen above 93%. Respiratory consulted to manage this. Will provide albuterol/Atrovent/Dulera. Will provide medication for cough and congestion. Patient with history of atrial fibrillation-will start Eliquis and metoprolol. May need to hold metoprolol if blood pressure remains low. Due to risk factors patient being evaluated for COVID, but doubt. PPE protocol was performed and will be continued. Blood, sputum, urine culture will be obtained. Will limit lab especially in light of possible COVID. Will continue to monitor closely. Will further discuss with pulmonology later this morning. Patient will require echocardiogram but this will likely be done during the course of his hospitalization. Will wait once COVID negative. Will need to reassess code status. Will continue to monitor closely and continue to reassess her sepsis protocol. Anticipate improvement over the next 3-5 days. Acute on chronic renal disease stage 3 suspect volume depletion: Nephrology will be consulted. Sepsis protocol in place. Continue with IV fluids. Will need to monitor for volume overload due to suspected diastolic chronic CHF. Atrial fibrillation on chronic anti coagulation therapy: Restart Eliquis. Will also restart metoprolol but may need to hold if blood pressure remains low. Hypertension: Obtain and verify home medication. Continue as above. Possible underlying diastolic chronic CHF: Will need to monitor fluid boluses per sepsis protocol. Will need to monitor for volume overload. May need to initiate Lasix. Will obtain echo once COVID negative. GERD: Will start Pepcid Alcohol/tobacco abuse: Will start folic acid, thiamine. Will monitor for withdrawal. Patient may require nicotine patch. Recent orthopedic surgery-Right ankle open reduction and internal fixation of medial malleolus/Open reduction and internal fixation of lateral malleolus due to right bimalleolar ankle fracture dislocation: Will provide medication for pain. Will contact Orthopedics. Patient may require physical therapy at discharge or consider skilled placement. Discharge Plan: Home Plan to discharge in: Greater than 2 days - Advance Directives Does patient have a Living Will: No Does patient have a Durable POA for Healthcare: No - Code Status/Comfort Care Code Status Assessed: No (Will need to evaluate and assess.) Time Spent Managing Pts Care (In Minutes): 65
[2020-02-18] MEDS ORDERED: METHYLPREDNISOLONE 40 MG INJ ONE (04:37)
[2020-02-18] MEDS ORDERED: ACETAMINOPHEN 500 MG TAB ONE (04:37)
[2020-02-18] MEDS ORDERED: NACHLORIDE 0.45% 1,000 ML IV ONE (06:00)
--- NOTE | 2020-02-18 07:00 | P.INFCA ---
Sepsis Focused Assessment - Focused Assessment Complete? Sepsis Focused Assessment Completed?: Yes - Sepsis Screen Result Severe Sepsis: Positive Septic Shock: Negative - Evaluation Current stage of sepsis: Severe sepsis - Vital Signs Reviewed: Yes - Examination Heart: Regular rate/rhythm Lungs: Decreased breath sounds Peripheral pulse location: Pedal Capillary refill: <2 Seconds Skin examination: Other (Some edema to the lower extremities)
[2020-02-18] MEDS ORDERED: RSI MEDICATION KIT IV ONE (07:05)
[2020-02-18] MEDS ORDERED: MIDAZOLAM HCL 2 MG/2 ML INJ ONE (07:21)
[2020-02-18] MEDS ORDERED: NOREPINEPHRINE 4mg/D5W 250mL 4 MG/250 ML BAG IV ONE (07:24)
[2020-02-18] MEDS ORDERED: NA CHLORIDE 0.9% 1,000 ML ONE (07:24)
[2020-02-18 07:37] LABS: Arterial Blood Carboxyhemoglob 1.2 % (0-1.5); Blood Gas Oxyhemoglobin 73.7 % (94-97); Blood O2 Saturation 75.3 % (92-98.5)
--- NOTE | 2020-02-18 07:57 | RAD REPORT ---
EXAM DESCRIPTION: Tuyet Single View02/18/2020 7:51 am CLINICAL HISTORY: Device placement endotracheal tube placement IMPRESSION: An endotracheal tube has been inserted with its tip 5 cm above the david.
[2020-02-18] MEDS ORDERED: ALBUTEROL INHALER 60 PUFF/8 GM IH PRN (07:59)
[2020-02-18] MEDS ORDERED: ONDANSETRON 4 MG/2 ML VIAL IV PRN (07:59)
[2020-02-18] MEDS ORDERED: METOPROLOL TAR 25 MG TAB PO SCH (07:59)
[2020-02-18] MEDS ORDERED: IPRATROPIUM 200 PUFF/12.9 GM INH IH PRN (07:59)
[2020-02-18] MEDS ORDERED: BENZONATATE 100 MG CAP PO PRN (07:59)
[2020-02-18] MEDS ORDERED: HYDROCODONE/APAP 7.5/325 MG TAB PO PRN (07:59)
[2020-02-18] MEDS ORDERED: ACETAMINOPHEN 500 MG TAB PO PRN (07:59)
--- NOTE | 2020-02-18 07:59 | RAD REPORT ---
EXAM DESCRIPTION: Tuyet Single View02/18/2020 2:10 am CLINICAL HISTORY: Cough COMPARISON: none FINDINGS: Moderate patchy left hand mild patchy right pulmonary opacities. The heart is mildly enlarged IMPRESSION: Bilateral patchy pulmonary opacities left greater than right may indicate a viral pneumo unruly
--- NOTE | 2020-02-18 08:08 | EKG ---
Test Date: 2020-02-18 Test Time: 01:08:54 Narrative Writer: RR MEASUREMENT RESULTS: Intervals: Rate: 121 [place]: QRSD: 86 QT: 342 QTc: 485 [place]: P: NC: QRS: 78 T: -78 INTERPRETIVE STATEMENTS: Atrial fibrillation with rapid ventricular response with premature ventricular or aberrantly conducted complexes ST & T wave abnormality, consider inferior ischemia or digitalis effect Abnormal ECG Compared to ECG 02/02/2020 12:03:43 Ventricular premature complex(es) now present Prolonged QT interval no longer present ST (T wave) deviation still present Possible ischemia still present Electronically Signed On 02-18-20 08:07:33 CDT by Dylan Ivy
[2020-02-18] MEDS ORDERED: CEFEPIME 1 GM/VIAL IV SCH (09:00)
[2020-02-18] MEDS ORDERED: VANCOMYCIN 1 GM in NA CHLORIDE 0.9% 500 ML IVPB SCH (09:00)
[2020-02-18] MEDS: GUAIFENESIN 600 MG SA TAB PO SCH ×2 (09:00→21:00)
[2020-02-18] MEDS ORDERED: FUROSEMIDE 40 MG/4 ML VIAL IV SCH (09:00)
[2020-02-18] MEDS ORDERED: ZINC GLUCONATE 50 MG TAB PO SCH (09:00)
[2020-02-18] MEDS ORDERED: DULERA 100/5 (MOMETASONE/FORMOTEROL) INHALER IH SCH (09:00)
[2020-02-18] MEDS ORDERED: FENTANYL CITR 100 MCG/2 ML IV PRN (09:06)
[2020-02-18] MEDS ORDERED: LORazepam 2 MG/ML VIAL IV PRN (09:06)
[2020-02-18] MEDS ORDERED: HALOPERIDOL LACT 5 MG/ML INJ IV PRN (09:06)
[2020-02-18] MEDS ORDERED: MIDAZOLAM HCL 2 MG/2 ML INJ IV PRN (09:06)
[2020-02-18] MEDS ORDERED: PROPOFOL IV PRN (09:06)
[2020-02-18] MEDS: FOLIC ACID 1 MG in NA CHLORIDE 0.9% 50 ML IV SCH (09:13)
[2020-02-18] MEDS: APIXABAN 5 MG TABLET PO SCH ×2 (09:23→20:19)
[2020-02-18] MEDS: THIAMINE 200 MG/2 ML INJ IVP SCH (09:24)
[2020-02-18] MEDS: METHYLPREDNISOLONE 40 MG INJ IV SCH ×2 (09:24→17:26)
[2020-02-18] MEDS: FAMOTIDINE 20 MG/2 ML VIAL IV SCH ×2 (09:25→20:18)
[2020-02-18] MEDS: MUPIROCIN 2% OINT 22GM TUBE TOP SCH ×2 (09:28→21:00)
[2020-02-18] MEDS ORDERED: NA CHLORIDE 0.9% 1,000 ML IV ONE (10:03)
[2020-02-18] MEDS ORDERED: NACHLORIDE 0.45% 1,000 ML with POTASSIUM CL 20 MEQ IV SCH ×2 (11:00)
[2020-02-18] MEDS: NOREPINEPHRINE 8 MG in Dextrose 5%-Water 500 ML IV PRN ×3 (11:02→21:33)
[2020-02-18] MEDS ORDERED: propofoL 1,000 MG/100 ML VIAL IV PRN (11:04)
[2020-02-18] MEDS ORDERED: CISATRACURIUM BESYLATE 40 MG in NA CHLORIDE 0.9% 80 ML IV PRN (11:07)
--- NOTE | 2020-02-18 11:58 | RAD REPORT ---
EXAM DESCRIPTION: CT - Head C Spine Cap Wo Con - 02/18/2020 6:38 am ADDENDUM #1 CLINICAL HISTORY: PAIN COMPARISON: None. TECHNIQUE: CT chest abdomen pelvis without contrast on 02/18/2020 1:05 AM CDT This exam was performed according to our departmental dose-optimization program, which includes autom ated exposure control, adjustment of the mA and/or kV according to patient size and/or use of iterati ve reconstruction technique. FINDINGS: Chest: The heart is mildly enlarged. There is no pericardial effusion. Intrathoracic lymph nodes are not enlarged. There is no pleural effusion, pleural thickening or pneumothorax. Central airways are patent. There a re moderate patchy opacities throughout both lungs. Abdomen: The liver is normal in appearance. There is no biliary dilatation. The pancreas and spleen a re normal in appearance. Right adrenal adenoma measures 3.1 cm. Left adrenal gland is normal. Kidneys are mildly atrophic. There are two left renal calculi Measuring up to 8 mm. There is no hydronephrosis. Abdominal aorta is normal in course and caliber without aneurysm. There is no free air. There is no r etroperitoneal adenopathy. Pelvis: There is no bowel obstruction. Urinary bladder is unremarkable. There is no free fluid. Appen belem is normal. Skeleton: There is an old fracture of the posterior left eighth rib. IMPRESSION: No definite acute posttraumatic findings. Electronically signed by: Christian Osman MD 02/18/2020 3:40 AM CDT End of Addendum CLINICAL HISTORY: PAIN COMPARISON: None. TECHNIQUE: CT Head and Cervical spine WO contrast on 02/18/2020 1:05 AM CDT This exam was performed according to our departmental dose-optimization program, which includes autom ated exposure control, adjustment of the mA and/or kV according to patient size and/or use of iterati ve reconstruction technique. FINDINGS: Brain: There is no acute hemorrhage, mass effect or midline shift. Khan-white differentiat ion is preserved. There is no hydrocephalus. There is no significant volume loss for age. The calvarium is intact. Orbits and globes are unremarkable. The paranasal sinuses are clear. There i s fluid throughout the right mastoid air cells. Cervical Spine: There is no acute fracture. Alignment is anatomic. Disc spaces are maintained. Vertebral body heights are preserved. Soft tissues are unremarkable. IMPRESSION: No acute intracranial findings. Right mastoid effusion. Electronically signed by: Christian Osman MD 02/18/2020 3:34 AM CDT Due to temporary technical issues with the PACS/Fluency reporting system, reports are being signed by the in house radiologist as a courtesy to ensure prompt reporting. The interpreting radiologist is f ully responsible for the content of the report.
[2020-02-18] MEDS ORDERED: VANCOMYCIN 2 GM in NA CHLORIDE 0.9% 500 ML IVPB SCH (12:00)
--- NOTE | 2020-02-18 12:00 | P.CNS ---
Date of Consult: 02/18/20 Primary Care Provider: Dr. Block; Orthopedics-Dr. Martinez; Cardiology-Dr. Irby Chief Complaint: Respiratory failure shock History of Present Illness: Patient is 64 years of age multiple medical problems surgery to his ankle recently patient was hypotensive on arrival no recent travel patient was intubated transferred to the ICU currently on high doses of Levophed and a ventilator shock isolation broad-spectrum antibiotics he has underlying sleep apnea Allergies No Known Allergies Allergy (Verified 02/02/20 10:56) Home Medications: Amlodipine Besylate 1 tab PO DAILY 02/02/20 Apixaban [Eliquis] 1 tab PO BID 02/02/20 Furosemide 1 tab PO DAILY 02/02/20 Metoprolol Succinate [Toprol Xl] 1 tab PO BID 02/02/20 Olmesartan/Hydrochlorothiazide [Olmesartan-Hctz 40-12.5 mg Tab] 1 each PO DAILY 02/02/20 - Past Medical/Surgical History Diabetic: No -: Atrial fibrillation/chronic anti coagulation therapy -: Hypertension -: COPD -: Alcohol abuse -: Tobacco abuse -: Suspect underlying obstructive sleep apnea -: Suspect underlying CHF -: Morbid obesity -: Recent right ankle surgery Psychosocial/ Personal History: Patient lives at home. - Social History Alcohol use: Yes CD- Drugs: No Caffeine use: Yes Place of Residence: Home Review of Systems is unable to be obtained Physical Examination Temp Pulse Resp BP Pulse Ox 100.1 F 99 H 16 91/62 99 02/18/20 05:30 02/18/20 07:25 02/18/20 09:54 02/18/20 07:25 02/18/20 09:54 Laboratory Data (last 24 hrs) 02/18/20 01:10: PT 27.8 H, INR 2.40, APTT 28.4 02/18/20 01:10: WBC 13.0 H, Hgb 10.4 L, Hct 33.7 L, Plt Count 376 02/18/20 01:10: Sodium 142, Potassium 3.0 L, BUN 34 H, Creatinine 1.86 H, Glucose 114 H, Magnesium 2.1, Total Bilirubin 0.9, AST 23, ALT 31, Alkaline Phosphatase 158 H, Amylase 33, Lipase 179 - Problems (1) Shock Current Visit: Yes Status: Acute Plan: Patient is 64 years of age multiple medical problems admitted with shock appears to be septic did white count and pro calcitonin levels hypoxic hypercapnic patient is anti coagulated patient's chest x-rays abnormal continue with vasopressors for spectrum antibiotics currently on 100% oxygen
[2020-02-18] MEDS ORDERED: VECURONIUM BROMIDE IV PRN ×2 (12:31→12:41)
[2020-02-18] MEDS ORDERED: D5W IV PRN ×2 (12:31→12:41)
--- NOTE | 2020-02-18 12:42 | CON ---
Date of Consultation: 02/18/2020 The patient admitted on 02/18/[address] Mckeon' service. I saw the patient on 02/18/2020. Reason For Consultation: Respiratory failure. History Of Present Illness: Mr. Phipps is a 64-year-old white man, has a history of hypertension, a trial fibrillation, coronary artery bypass surgery, and nephrolithiasis. Came in with mostly diarrhe a, but was also noted to be short of breath, respiratory failure. He is now intubated. His last pO2 before intubation was 46. PO2 of 48, pCO2 with a pH of 7.29. He denied any chest pain or syncope o n presentation. He denied any palpitation on presentation. Denied any nausea or vomiting. Denied a ny fever or chills or cough. Past Medical History: As stated above. Allergies: NONE. Review of Systems: Negative. Social History: Negative. Family History: Negative. Medications At Home: Include Norvasc, Eliquis, Lasix, metoprolol, and he also takes olmesartan with hydrochlorothiazide. Physical Examination: GENERAL: He is intubated, 100% O2 saturation. He was in atrial fibrillation with rapid ventricular response. VITAL SIGNS: He was afebrile. HEENT: Negative. NECK: Supple with no bruit. CHEST: Diffuse crackles and wheezing on expiration. ABDOMEN: Benign. CARDIAC: Irregularly irregular rhythm and rate. No murmurs, gallops, or rubs. EXTREMITIES: 1+ edema. SKIN: Dry and intact. VASCULAR: Pulses were present distally bilaterally. Diagnostic Data: His creatinine is 1.86. White count of 13,000 with a left shift. Potassium of 3.0 . INR is 2.38. EKG showed atrial fibrillation. BNP is 2826. Lactic acid was elevated. Procalcito iesha was 10.92. Chest x-ray showed possible viral pneumonia. Impression And Plan: 1.Possible acute diastolic congestive heart failure. 2.Possible chronic obstructive pulmonary disease exacerbation. 3.Atrial fibrillation with rapid ventricular response. 4.Hypertension. 5.Status post coronary artery bypass graft. 6.Nephrolithiasis. 7.Viral pneumonia. 8.Acute renal failure. 9.Status post intubation. For now, Mr. Phipps need to have his potassium corrected. Pulmonary and Renal consultation have bee n obtained. He is already on antibiotics. He is on inhalers. He is being diuresed. Echocardiogram is pending for Thursday. We need to resume his Eliquis whenever he is extubated. He is already on Lo venox. He does take metoprolol at home and we can certainly give him IV beta blockers 5 mg every 2 h ours p.r.n., heart rate greater than 120. I will continue to follow him. CHEL Voice ID: [id number] Report ID: [id number]
--- NOTE | 2020-02-18 13:20 | P.CNS ---
Date of Consult: 02/18/20 Reason for Consult: ANASTASIYA, hypokalemia Primary Care Provider: Dr. Block; Orthopedics-Dr. Martinez; Cardiology-Dr. Irby Chief Complaint: Respiratory failure shock History of Present Illness: Pt is intubated , HX obtained from chart A 64 Y/o man with PMhx of HTN on olmesartan/HCTZ , Afib on Eliquis , HLD and OMAR on CPAP, and CKD III Cr 1.3 pt presented after fall pt had Rt ankle surgery ~3wks ago, since then had limited activity fell at home, in ER BP in 70s, ABG with hypoxia , pt was intubated, labs significant for bandemia, procal of 10 and Cr 1.8 PMH As above PSH Lt ankle surgery ROS unable to provide Physical intubated and sedated Neck; Supple, No elevated JVD hear: RRR, normal S1,2 no murmur or rub Chest: decreased air entry to the bases Abdomen: Soft , Nt Extremities trace edema, Rt Leg cast, Lt leg erythema A/P ANASTASIYA on CKD III due to ischemic ATN will cont IVF for now agree to DC olmesartan and HCTZ renal dose meds Hypokalmeia replace prn Severe sepsis Bandemia and elevated procal Pending COVID need to R/O Lt ankle infection F/U cultures cont pressers resp failure intubated Afib currently rate controlled Prognosis guarded Time spent 45 Min Allergies No Known Allergies Allergy (Verified 02/02/20 10:56) Home Medications: Amlodipine Besylate 1 tab PO DAILY 02/02/20 Apixaban [Eliquis] 1 tab PO BID 02/02/20 Furosemide 1 tab PO DAILY 02/02/20 Metoprolol Succinate [Toprol Xl] 1 tab PO BID 02/02/20 Olmesartan/Hydrochlorothiazide [Olmesartan-Hctz 40-12.5 mg Tab] 1 each PO DAILY 02/02/20 - Past Medical/Surgical History Diabetic: No -: Atrial fibrillation/chronic anti coagulation therapy -: Hypertension -: COPD -: Alcohol abuse -: Tobacco abuse -: Suspect underlying obstructive sleep apnea -: Suspect underlying CHF -: Morbid obesity -: Recent right ankle surgery Psychosocial/ Personal History: Patient lives at home. - Social History Alcohol use: Yes CD- Drugs: No Caffeine use: Yes Place of Residence: Home Physical Examination Temp Pulse Resp BP Pulse Ox 100.0 F 71 28 H 52/28 L 97 02/18/20 11:01 02/18/20 12:33 02/18/20 12:33 02/18/20 12:33 02/18/20 11:08 Laboratory Data (last 24 hrs) 02/18/20 01:10: PT 27.8 H, INR 2.40, APTT 28.4 02/18/20 01:10: WBC 13.0 H, Hgb 10.4 L, Hct 33.7 L, Plt Count 376 02/18/20 01:10: Sodium 142, Potassium 3.0 L, BUN 34 H, Creatinine 1.86 H, Glucose 114 H, Magnesium 2.1, Total Bilirubin 0.9, AST 23, ALT 31, Alkaline Phosphatase 158 H, Amylase 33, Lipase 179
[2020-02-18] MEDS ORDERED: VECURONIUM 10 MG/VIAL IV ONE ×3 (13:38→15:00)
--- NOTE | 2020-02-18 14:11 | RAD REPORT ---
EXAM DESCRIPTION: STEPHENIEEditht Single View02/18/2020 2:00 pm CLINICAL HISTORY: Shortness of breath COMPARISON: February 17 FINDINGS: Endotracheal tube has been inserted with its tip well above the david. Nasogastric tube is been placed into the stomach
[2020-02-18] MEDS ORDERED: SODIUM BICARB 50 MEQ/50ML VIAL ONE (14:34)
[2020-02-18] MEDS: D5W IV PRN ×2 (15:34→22:35)
[2020-02-18] MEDS: VECURONIUM BROMIDE IV PRN ×2 (15:34→22:35)
--- NOTE | 2020-02-18 15:36 | DS ---
History Of Present Illness: I have seen this patient in the past approximately 2-1/2 weeks ago. He underwent open reduction and internal fixation of bimalleolar ankle fracture. I saw him just recentl y I believe either on or Thursday, which would make it either 1 or 2 days ago in the office wh ere he was taken out of his splint. X-rays were taken. His glen were removed. He was placed int o a short-leg cast. At that time, he had absolutely no symptoms, did not appear to be febrile or hav e any other constitutional symptoms. Appeared to be doing quite well. He was able to interact quite well and had no difficulty with transfers or any evidence of shortness of breath or other issues. I am called this morning as I am told that either late last night or early this morning he had an issu e with respiratory system. He was ultimately intubated and admitted to the ICU. I am called by Dr. Mckeon as he does have a positive rapid strep test, but questions were farrell, also some concerns as he has had recent surgery that he could have some issues related to his ankle. He is in a cast and u sing all precautions for COVID. Physical Examination: The cast saw was then used to remove his top portion of his cast and fully examine his right lower ex tremity. His incision line is absolutely doing well. Skin appears to be well healed. There is no s ign of erythema or infection. Assessment And Plan: This is a patient whom I am following for his ankle. He should be nonweightbea ring on his ankle until 6 weeks postop. I have left the top of the cast off in case it needs to be f urther investigated to look at; however, it is secured with an Ruperto wrap. I do not really see any ass ociation between his foot and his respiratory status. He is currently on anticoagulations, although there is a possibility of DVT, even so his chest x-ray appears to be more related to more of a parenc hymal process than anything that could be related to his ankle. I think we can see him back on an as -needed basis if they calls up to the floor. Otherwise, as he recovers and is discharged, we can see him back for casting and continue to follow his ankle. He will continue to be nonweightbearing until 6 weeks. /MODL Voice ID: [id number] Report ID: [id number]
[2020-02-18 16:00] LABS: Arterial Blood Carboxyhemoglob 0.6 % (0-1.5); Blood Gas Oxyhemoglobin 96.4 % (94-97)
[2020-02-18] MEDS: CEFEPIME/SWI 1gm 10 ML IVP SCH (20:19)
[2020-02-18] MEDS ORDERED: FUROSEMIDE 40 MG/4 ML VIAL IV ONE (21:59)
[2020-02-18] MEDS ORDERED: SOD POLYSTYREN SUL 15 GM/60 ML UCUP PO ONE (22:00)
[2020-02-18] MEDS ORDERED: NACHLORIDE 0.45% 1,000 ML IV SCH (23:00)
[2020-02-19] MEDS: VANCOMYCIN 2 GM in NA CHLORIDE 0.9% 500 ML IVPB SCH (00:08)
[2020-02-19] MEDS: METHYLPREDNISOLONE 40 MG INJ IV SCH ×3 (00:08→16:14)
[2020-02-19] MEDS: NOREPINEPHRINE 8 MG in Dextrose 5%-Water 500 ML IV PRN ×4 (00:09→20:00)
[2020-02-19] MEDS ORDERED: CALCIUM GLUC 10% INJ 4.65 MEQ in NA CHLORIDE 0.9% 100 ML IV ONE ×2 (03:39→04:50)
[2020-02-19] MEDS ORDERED: INSULIN -REGULAR HUMAN 50 UNIT/0.5 ML ML IV ONE (03:40)
[2020-02-19] MEDS ORDERED: D50W 25 GM/50 ML SYRINGE/VIAL IV ONE ×2 (03:41→04:00)
[2020-02-19] MEDS ORDERED: SOD POLYSTYREN SUL 15 GM/60 ML UCUP PO ONE (03:43)
[2020-02-19] MEDS ORDERED: SOD POLYSTYREN SUL 15 GM/60 ML UCUP PR ONE (03:44)
[2020-02-19] MEDS ORDERED: CALCIUM GLUCONATE 1 GM IVPB 1 GM/50 ML BAG IV ONE ×2 (03:54→05:00)
[2020-02-19] MEDS ORDERED: INSULIN -REGULAR HUMAN 50 UNIT/0.5 ML ML ONE (03:59)
[2020-02-19 04:09] LABS: Urine Appearance TURBID; Urine Blood 3+ (NEG); Urine Color DK YELLOW; Urine Glucose TRACE (NEG); Urine Protein 3+ (NEG); Urine Specific Gravity 1.025 (1.005-1.030); Urine Urobilinogen 0.2 mg/dL (0.2-1.0)
[2020-02-19 04:24] LABS: Urine Bilirubin NEGATIVE (NEG); Urine Microscopic Reflex ORDER UMIC
--- NOTE | 2020-02-19 04:41 | P.PN ---
Date of Service: 02/19/20 Called by ICU nurse regarding potassium level of 7.9. Initial level was [address] Morris ordered Kayexalate and Lasix. Repeat level came back at 7.9. Calcium gluconate dextrose albuterol and insulin were ordered with the repeat dose of calcium gluconate in 0.5 hr. EKG was obtained which showed conduction delay with mildly peaked T-waves. Transcribing Machine Operator on case was contacted regarding emergency dialysis he agreed with the need for dialysis as patient's urinary output is very low. Spoke with surgeon on-call Dr. Hand to place a temporary dialysis catheter. Called the Radha and I explained to her the issue of hyperkalemia which can result in sudden cardiac . She understands that the patient is on blood thinners and will have bleeding due to catheter placement however at this point the benefits outweigh the risks. Initially she stated that she did not know what to do and wanted to call her children and asked me to call her back in 10 mins. I told her that any delay can be costly however she wished to speak to her children. When I called her back patients had spoken to her daughter and now agrees to the emergency catheter placement and dialysis. Risk and benefits were explained including bleeding amongst other complications. Dialysis nurse has been contacted by the mannequin mounter to come in emergently to set up dialysis. Will order FFP. Stop anti coagulation Patient is already on 2 pressors bacteremic septic has a very poor prognosis. Currently being ruled out for COVID 19.
[2020-02-19 04:56] LABS: Urine Bacteria LOADED /HPF (NONE SEEN); Urine Mucus 2+ /HPF (NONE SEEN)
[2020-02-19 04:57] LABS: Urine Culture Reflex Order NOT NEEDED
[2020-02-19] MEDS ORDERED: NA CHLORIDE 0.9% 250 ML IV SCH (05:00)
[2020-02-19 05:34] LABS: Arterial Blood Carboxyhemoglob 0.5 % (0-1.5); Blood O2 Saturation 97.7 % (92-98.5)
[2020-02-19 06:39] LABS: Absolute Lymphocytes (CBC) 1.7 K/uL (0.7-4.9); Basophils % 0.5 % (0-1.3); Hematocrit 36.8 % (39.6-49.0); Lymphocytes % 5.8 % (15.3-44.8); MPV 9.8 fL (7.6-11.3); RBC Red Blood Cell Count 4.32 M/uL (4.33-5.43)
[2020-02-19 06:55] LABS: Protime INR 9.3
--- NOTE | 2020-02-19 07:16 | OP ---
Surgeon: Lee Hand MD Preoperative Diagnoses: Multiorgan failure, morbid obesity, hyperkalemia, renal insufficiency, on an ticoagulation, atrial fibrillation, cardiac disease. Postoperative Diagnoses: Multiorgan failure, morbid obesity, hyperkalemia, renal insufficiency, on a nticoagulation, atrial fibrillation, cardiac disease. Procedure: Emergent placement of a hemodialysis tunnel catheter on the left femoral region. Anesthesia: Local. Indications: This is the case of a 64-year-old patient, who needs an emergent hemodialysis catheter. Patient is right now hypertensive, multiorgan failure, ventilator dependent. He has a long cardiac circulatory and kidney failures. The patient understood the risk. For the central line, we have to select the left femoral region. I have to mention that the benefits, alternatives, and risks were a lready explained to the family, which include, but not limited to, infection, bleeding, damage to adj acent structures, hematomas, bleeding, HI, and even . Description Of Procedure: The patient's left femoral region was prepped and draped in a sterile fash ion. Local anesthetic was applied, followed by insertion of an 18-gauge needle in the left femoral v ein at the first attempt. A guidewire was passed through. A small incision was made in the skin. W e tunneled the dilators right through the femoral region using the guidewire. After we put 2 dilator s then we proceeded then to put the Juan Luis hemodialysis catheter. The guidewire was removed. The l ine was secured in place with 3-0 nylon and flushed with saline. The hemodialysis people will be her e any time and he is already coagulopathic that is why we did not give the heparin on the catheter. Patient tolerated the procedure well, considering his critical status. HM/MODL Voice ID: [id number] Report ID: [id number]
--- NOTE | 2020-02-19 07:43 | EKG ---
Test Date: 2020-02-19 Test Time: 03:59:15 Orthopedically Impaired Teacher: RT Jacobsen MEASUREMENT RESULTS: Intervals: Rate: 78 [place]: QRSD: 124 QT: 386 QTc: 440 [place]: P: VA: QRS: 78 T: 57 INTERPRETIVE STATEMENTS: Atrial fibrillation Nonspecific intraventricular conduction delay ST & T wave abnormality, consider anterior ischemia or digitalis effect Abnormal ECG Compared to ECG 02/18/2020 01:08:54 Intraventricular conduction delay now present Ventricular premature complex(es) no longer present ST (T wave) deviation still present Possible ischemia still present Electronically Signed On 02-19-20 07:43:22 CDT by Dylan Ivy
[2020-02-19 07:52] LABS: Albumin 2.1 g/dL (3.4-5.0); Alkaline Phosphatase 149 U/L (45-117); BUN Blood Urea Nitrogen 48 mg/dL (7-18); Bilirubin Total 1.7 mg/dL (0.2-1.0); Glucose Level 130 mg/dL (74-106); HDL Cholesterol 42 mg/dL (40-60); LDL Cholesterol, Calculated 14 (<130); Magnesium 2.6 mg/dL (1.8-2.4); Protein, Total 5.5 g/dL (6.4-8.2); Sodium Level 132 mmol/L (136-145)
[2020-02-19 07:54] LABS: Bicarbonate 11 mmol/L (21-32); CKMB Creatine Kinase MB 11.4 ng/mL (0.3-3.6); Troponin I 1.63 ng/mL (0.0-0.045)
[2020-02-19 07:55] LABS: Potassium 7.5 mmol/L (3.5-5.1)
--- NOTE | 2020-02-19 07:58 | CON ---
Date of Consultation: 02/19/2020 Reason For Consultation: This was an emergent call for a hemodialysis catheter placement. History Of Present Illness: This is the case of a 64-year-old patient with multiple medical problems with respiratory failure, possibly COVID in progress; hypotension, multiorgan failure, on maximized Levophed; now renal failure; high potassium over 7. The current primary doctor is trying to fix his potassium, cannot do it. Dialysis was consulted, asked for emergent hemodialysis. Past Medical History: Cardiac disease, AFib, morbid obesity. Social Habits: Smoking. Medications: Reviewed including anticoagulation. Family History: Noncontributory. Review of Systems: Unable to be obtained. Physical Examination: General: Patient is intubated, sedated. Abdomen: Soft and depressible. No guarding, rebound, although once again, the patient is sedated. Extremities: Over the right femoral region, patient has a central line. Over the left femoral area, there is an area we might put a catheter. Skin: Patient has ischemic changes in the skin all over the body. Patient is once again on maximize d Levophed. Neck: Supple but there is no space. Patient is morbidly obese and the neck is not appreciated. Laboratory Data: Blood work was reviewed with an INR over 2.5. Assessment: This is a 64-year-old patient with an emergency situation. High-risk patient. Possible coronavirus disease, coronary artery disease, morbidly obese. Patient has a central line already on the right side. Some options are in the neck, which is difficult. I will have to bring this patien t to surgery, and chest has once again possibility of pneumothorax at this time. So, we selected lef t femoral region as an emergency, especially when the patient has a very elevated INR, and if we have any bleeding, it could be better controlled in the femoral region. The family fully understands. P atient is maximized on Levophed. Respiratory failure. They want to do everything for him Dr. Talbert. I discussed the case with him at length, and he decided to ask for an emergent central l ine placement, understanding the risks of hematoma, bleeding, damage to adjacent structures, even stacia th. This is a temporary catheter at this time, to be changed to the upper body if this patient survi ves this tragic event. Consent was obtained after family was fully explained that. HM/CLAUDIA Voice ID: [id number] Report ID: [id number]
[2020-02-19] MEDS: D5W IV PRN (08:00)
[2020-02-19] MEDS: VECURONIUM BROMIDE IV PRN (08:00)
[2020-02-19] MEDS: CEFEPIME/SWI 1gm 10 ML IVP SCH ×2 (08:28→20:27)
[2020-02-19] MEDS: THIAMINE 200 MG/2 ML INJ IVP SCH (08:28)
[2020-02-19] MEDS: FAMOTIDINE 20 MG/2 ML VIAL IV SCH ×2 (08:28→20:27)
[2020-02-19 08:29] LABS: ALT/SGPT 9598 U/L (12-78)
[2020-02-19] MEDS: GUAIFENESIN 600 MG SA TAB PO SCH ×2 (08:29→20:27)
[2020-02-19 08:30] LABS: Creatine Phosphokinase 1445 U/L (39-308)
[2020-02-19] MEDS: MUPIROCIN 2% OINT 22GM TUBE TOP SCH ×2 (08:40→20:01)
[2020-02-19 08:41] LABS: AST/SGOT 19118 U/L (15-37)
[2020-02-19 08:58] LABS: Ferritin 3813.3 ng/mL (26-388)
--- NOTE | 2020-02-19 09:22 | PN ---
Date of Progress Note: 02/19/2020 Mr. Phipps was admitted with [id number] diastolic congestive heart failure, renal failure. He also has a history of coronary artery disease, status post CABG. He has a history of COPD, atrial f ibrillation. Has a history of obesity, alcohol abuse, and tobacco abuse. Mr. Phipps seems to have done worse overnight. There is definitely evidence of sepsis. He is now h yperkalemic. He is very acidotic and he was dialyzed emergently. He remains on antibiotics and inha lers and being diuresed. He is on Levophed, steroids, insulin, and on Eliquis. His prognosis is rat her poor. Pulmonary consultation and Renal consultation are ongoing. An echocardiogram is pending i n the morning. Last blood pressure was 102/89. We will continue to follow him. MENDOZA/CLAUDIA Voice ID: [id number] Report ID: [id number]
--- NOTE | 2020-02-19 09:39 | P.PN ---
Subjective Date of Service: 02/19/20 Primary Care Provider: Dr. Block; Orthopedics-Dr. Martinez; Cardiology-Dr. Irby Chief Complaint: Respiratory failure shock Subjective: Worsening (Patient's condition is deteriorating he has multiorgan failure maximum vasopressor therapy 100% oxygen worsening liver function tests and renal failure) Review of Systems is unable to be obtained Physical Examination - Vital Signs Temperature: 99.5 F Blood Pressure: 110/53 Pulse: 88 Respirations: 24 Pulse Ox (%): 100 - Physical Exam General: Unresponsive Respiratory: Clear to auscultation bilaterally, Diminished Cardiovascular: Edema - Studies Microbiology Data (last 24 hrs): 02/18/20 02:04 Nasopharnyx Coronavirus COVID-19 PCR - Final Assessment & Plan - Problems (Diagnosis) (1) Shock Current Visit: Yes Status: Acute Plan: Patient admitted with refractory shock blood cultures all positive chest x-ray reviewed patient is on dialysis is acidotic as stated DNR and withdrawal of care multiorgan failure rapidly progressive
[2020-02-19] MEDS: FOLIC ACID 1 MG in NA CHLORIDE 0.9% 50 ML IV SCH (09:47)
[2020-02-19] MEDS ORDERED: NACHLORIDE 0.45% 1,000 ML with NA BICARB 8.4% 100 MEQ IV SCH ×2 (10:00)
[2020-02-19 10:33] LABS: Anisocytosis 1+; Blood Morphology Comment NOTED (NOT SEEN)
[2020-02-19 10:34] LABS: Platelet Estimate ADEQ; Urine White Blood Cell Casts OK
[2020-02-19] MEDS: ZINC SULFATE 220 MG CAP PO SCH (10:47)
--- NOTE | 2020-02-19 10:48 | P.PN ---
Subjective Date of Service: 02/19/20 Primary Care Provider: Dr. Block; Orthopedics-Dr. Martinez; Cardiology-Dr. Irby Chief Complaint: Respiratory failure shock Subjective: Worsening Subjective A 64 Y/o man with PMhx of HTN on olmesartan/HCTZ , Afib on Eliquis , HLD and OMAR on CPAP, and CKD III Cr 1.3 pt presented after fall pt had Rt ankle surgery ~3wks ago, since then had limited activity fell at home, in ER BP in 70s, ABG with hypoxia , pt was intubated, labs significant for bandemia, procal of 10 and Cr 1.8 Today Anuric, , on 2 pressers Cr up to 4.5, And K 7.9 , with elevated LFT started on HD Bcx G+ve Covid 19 pending pt have guarded to poor prognosis, discussed with at bed side , also stated that pt wishes is not to be on supportive machines agreed for DNR status, and cont medical care , will reassess medical conditions in trhe next 24-48 hrs and readdress goal of care if no improvement inb medical status PMH As above PSH Lt ankle surgery ROS unable to provide Physical intubated and sedated Neck; Supple, No elevated JVD hear: RRR, normal S1,2 no murmur or rub Chest: decreased air entry to the bases Abdomen: Soft , Nt Extremities edema, Rt Leg cast, Lt leg erythema A/P ANASTASIYA on CKD III due to ischemic ATN and septic GN will dc IVF started HD next HD tomorrow agree to DC olmesartan and HCTZ renal dose meds anuric Hyperkalemia HD today Severe sepsis Bandemia and elevated procal Pending COVID need to R/O Lt ankle infection F/U cultures cont pressers resp failure intubated Afib currently rate controlled elevated LFT due tp shocked liver Prognosis guarded to poor Time spent 55 Min Physical Examination - Vital Signs Temperature: 99.5 F Blood Pressure: 143/85 Pulse: 108 Respirations: 16 Pulse Ox (%): 100 - Studies Microbiology Data (last 24 hrs): 02/18/20 02:04 Nasopharnyx Coronavirus COVID-19 PCR - Final
--- NOTE | 2020-02-19 11:46 | RAD REPORT ---
EXAM DESCRIPTION: RAD - Chest Single View - 02/19/2020 6:59 am CLINICAL HISTORY: ETT placement/PNA Chest pain. COMPARISON: Chest Single View dated 02/18/2020; Chest Single View dated 02/18/2020; Chest Single View da taqueria 02/18/2020; ABDOMEN 1 VIEW KUB dated 04/06/2013 FINDINGS: Portable technique limits examination quality. The left lower lung remains hazy, essentially unchanged when accounting for differences in patient po sitioning. Tip of the ET tube is above the david. Enteric tube tip is poorly visualized due to soft tissue artifact. The heart is mildly enlarged in size.
--- NOTE | 2020-02-19 15:14 | P.PN ---
Subjective Date of Service: 02/19/20 Primary Care Provider: Dr. Block; Orthopedics-Dr. Martinez; Cardiology-Dr. Irby Chief Complaint: Respiratory failure shock Subjective: Other (Patient remains guarded. Since the patient is still under investigation for COVID, physical exam was not done but patient seen from afar.) Physical Examination - Vital Signs Temperature: 97.1 F Blood Pressure: 114/68 Pulse: 100 Respirations: 16 Pulse Ox (%): 100 - Physical Exam Other Physical/Emotional Findings: Full examination not done due to COVID result pending. Patient's left lower extremity appears edematous with some purpura. Patient currently intubated and sedated. Patient receiving hemodialysis at this time. Patient on vasopressors. Patient on multiple medications. - Studies Medications List Reviewed: Yes Assessment & Plan Discharge Plan: LTAC Plan to discharge in: Greater than 2 days - Code Status/Comfort Care Code Status Assessed: Yes (This was readdressed with family. Patient now DNR) Physician Review Additional Text: Impression: Impression: Septic shock with acute on chronic respiratory failure with hypoxia complicated with acute on chronic diastolic CHF, acute renal failure, liver failure, COPD exacerbation, and possible bilateral pneumonia/UTI Acute on chronic renal disease stage II now with further renal failure requiring dialysis with noted hyperkalemia Liver failure likely related to septic shock Left lower extremity cellulitis Atrial fibrillation on chronic anti coagulation therapy GERD History of tobacco and alcohol abuse Recent orthopedic surgery Plan: Septic shock with acute on chronic respiratory failure with hypoxia complicated with acute on chronic diastolic CHF, acute renal failure, liver failure, COPD exacerbation, and possible bilateral pneumonia/UTI: Patient currently intubated. Patient now on 2 vasopressors. Patient remains on IV antibiotic therapy, steroid, medication for ventilator and IV fluids. Case discussed at length with pulmonology, Cardiology, Nephrology. Patient male with acute renal failure requiring emergent dialysis due to hyperkalemia. Catheter placed this morning. Patient out receiving dialysis. Sputum culture positive for strep. Urine/sputum/Blood cultures pending but showing Gram positive cocci in clusters. Awaiting COVID testing results. Echo pending. Patient condition remains guarded. Poor prognosis noted. Case discussed at length with family. They understand his current medical status. Advanced directives addressed in detail. and family have decided the patient to be DNR. They want to continue with current treatment. They will continue to reassess. If no significant change in the next 12 to 24 hr then day will consider withdrawal of care. Acute on chronic renal disease stage II now with further renal failure requiring dialysis with noted hyperkalemia: Case discussed with Nephrology. Patient currently gain emergent dialysis. Liver failure likely related to septic shock: Continue current therapy at this time. Will monitor closely. Left lower extremity cellulitis: Continue antibiotics. Await culture results. Atrial fibrillation on chronic anti coagulation therapy: Anti coagulation therapy held at this time. Continue other medication GERD: Continue medication History of tobacco and alcohol abuse Recent orthopedic surgery: This was addressed in detail with orthopedics. Patient was reassessed. No indication cellulitis to the right lower extremity for the cast had in place. Time Spent Managing Pts Care (In Minutes): 55
[2020-02-19 16:05] LABS: Protime INR 5.09
[2020-02-19] MEDS ORDERED: HYDROCORTISONE NA SUC 200 MG in NA CHLORIDE 0.9% 100 ML IV ONE ×2 (17:48→21:00)
[2020-02-20] MEDS: METHYLPREDNISOLONE 40 MG INJ IV SCH ×3 (00:54→16:43)
[2020-02-20] MEDS: VANCOMYCIN 2 GM in NA CHLORIDE 0.9% 500 ML IVPB SCH (01:00)
[2020-02-20] MEDS: NOREPINEPHRINE 8 MG in Dextrose 5%-Water 500 ML IV PRN (04:06)
[2020-02-20 05:18] LABS: Protime INR 8.35
[2020-02-20 05:20] LABS: Absolute Lymphocytes (CBC) 0.4 K/uL (0.7-4.9); Basophils % 0.2 % (0-1.3); Hematocrit 33.6 % (39.6-49.0); Lymphocytes % 1.4 % (15.3-44.8); MPV 9.9 fL (7.6-11.3); RBC Red Blood Cell Count 4.21 M/uL (4.33-5.43)
[2020-02-20 05:39] LABS: Arterial Blood Carboxyhemoglob 0.8 % (0-1.5); Blood O2 Saturation 98.1 % (92-98.5)
[2020-02-20 06:43] VITALS: BMI 43.2
[2020-02-20 07:48] LABS: Albumin 2.2 g/dL (3.4-5.0); Bilirubin Total 3.5 mg/dL (0.2-1.0); Protein, Total 5.5 g/dL (6.4-8.2)
[2020-02-20 07:52] LABS: Potassium 5.6 mmol/L (3.5-5.1)
--- NOTE | 2020-02-20 08:30 | RAD REPORT ---
EXAM DESCRIPTION: RAD - Chest Single View - 02/20/2020 6:20 am CLINICAL HISTORY: ETT placement/PNA Chest pain. COMPARISON: Chest Single View dated 02/19/2020; Chest Single View dated 02/18/2020; Chest Single View da taqueria 02/18/2020; Chest Single View dated 02/18/2020 FINDINGS: Portable technique limits examination quality. Mild worsening in bilateral pulmonary opacities noted since yesterday's study. Poor aeration seen in the left base persists. The heart remains enlarged. ET tube tip is above the david. Enteric tube katheryn cends into the upper abdomen.
[2020-02-20] MEDS: MUPIROCIN 2% OINT 22GM TUBE TOP SCH ×2 (09:00→20:29)
--- NOTE | 2020-02-20 09:47 | P.PN ---
Subjective Date of Service: 02/20/20 Primary Care Provider: Dr. Block; Orthopedics-Dr. Martinez; Cardiology-Dr. Irby Chief Complaint: Respiratory failure shock Subjective: Other (Patient remains intubated. He is without sedation but no response.) Physical Examination - Vital Signs Temperature: 98.1 F Blood Pressure: 103/75 Pulse: 98 Respirations: 16 Pulse Ox (%): 98 - Physical Exam General: Other (Patient remains intubated. He has been without sedation but no response to pain.) Respiratory: Clear to auscultation bilaterally, Normal air movement, Other ( Endotrach tube in place.) Cardiovascular: Irregular heart rate/rhythm (Patient in and out of AFib with rate controlled) Gastrointestinal: Hypoactive Integumentary: Other (Ecchymoses to the left lower extremity. Mild edema present.) - Studies Microbiology Data (last 24 hrs): 02/18/20 01:15 Blood - Blood Blood Culture Gram Stain - Final 02/18/20 01:15 Blood - Blood Gram Stain - Final Medications List Reviewed: Yes Assessment & Plan Discharge Plan: LTAC Plan to discharge in: Greater than 2 days Physician Review Additional Text: Impression: Impression: Septic shock with acute on chronic respiratory failure with hypoxia complicated with acute on chronic diastolic CHF, acute renal failure, liver failure, COPD exacerbation, and possible bilateral pneumonia/UTI Acute on chronic renal disease stage II now with further renal failure requiring dialysis with noted hyperkalemia Liver failure likely related to septic shock Left lower extremity cellulitis Atrial fibrillation on chronic anti coagulation therapy GERD History of tobacco and alcohol abuse Recent orthopedic surgery Plan: Septic shock with acute on chronic respiratory failure with hypoxia complicated with acute on chronic diastolic CHF, acute renal failure, liver failure, COPD exacerbation, and possible bilateral pneumonia/UTI, blood cultures positive for Strept.: Patient remains intubated. Now only on 1 vasopressor. Patient has been off sedation but does not respond to pain. Patient has received IV antibiotic therapy, steroid, and other medication. Patient received FFP yesterday. Liver function tests slightly improved. Positive blood cultures indicate Streptococcus. Await sensitivities. Case discussed with pulmonology. Patient still with poor prognosis. Will discuss with family about plan of care. Yesterday they were considering withdrawal of care. Will Re discuss about options. Patient is COVID negative. Continue to support patient. Patient is do not resuscitate. After discussion with family will discuss with other specialists is well. Acute on chronic renal disease stage II now with further renal failure requiring dialysis with noted hyperkalemia: Patient received emergent dialysis yesterday. Liver failure likely related to septic shock: Continue current therapy at this time. Will monitor closely. Patient received FFP. Left lower extremity cellulitis: Continue antibiotics. Await culture results. Atrial fibrillation on chronic anti coagulation therapy: Anti coagulation therapy held at this time. Continue other medication GERD: Continue medication History of tobacco and alcohol abuse Recent orthopedic surgery: This was addressed in detail with orthopedics. Patient was reassessed. No indication cellulitis to the right lower extremity for the cast had in place. Time Spent Managing Pts Care (In Minutes): 55
[2020-02-20] MEDS: CEFEPIME/SWI 1gm 10 ML IVP SCH (09:55)
[2020-02-20] MEDS: THIAMINE 200 MG/2 ML INJ IVP SCH (09:56)
[2020-02-20] MEDS: FAMOTIDINE 20 MG/2 ML VIAL IV SCH (09:56)
[2020-02-20] MEDS: FOLIC ACID 1 MG in NA CHLORIDE 0.9% 50 ML IV SCH (09:56)
[2020-02-20] MEDS: ZINC SULFATE 220 MG CAP PO SCH (10:19)
[2020-02-20] MEDS: GUAIFENESIN 600 MG SA TAB PO SCH ×2 (10:19→20:28)
--- NOTE | 2020-02-20 11:27 | P.PN ---
Subjective Date of Service: 02/20/20 Primary Care Provider: Dr. Block; Orthopedics-Dr. Martinez; Cardiology-Dr. Irby Chief Complaint: Respiratory failure shock Subjective: Improving (Patient is off vasopressors oxygen requirements have declined unresponsive) Review of Systems is unable to be obtained Physical Examination - Vital Signs Temperature: 98.1 F Blood Pressure: 101/68 Pulse: 89 Respirations: 16 Pulse Ox (%): 99 - Physical Exam General: Unresponsive Respiratory: Clear to auscultation bilaterally Cardiovascular: Edema (Significant bruising on his extremities) Other Physical/Emotional Findings: Full examination not done due to COVID result pending. Patient's left lower extremity appears edematous with some purpura. Patient currently intubated and sedated. Patient receiving hemodialysis at this time. Patient on vasopressors. Patient on multiple medications. - Studies Microbiology Data (last 24 hrs): 02/18/20 01:15 Blood - Blood Blood Culture Gram Stain - Final 02/18/20 01:15 Blood - Blood Gram Stain - Final Medications List Reviewed: Yes Assessment & Plan - Problems (Diagnosis) (1) Shock Current Visit: Yes Status: Acute Plan: Patient admitted with septic shock blood cultures positive for strep pyogenes patient has multiorgan failure change to Rocephin Dc cefepime continue with vancomycin prognosis is poor patient probably has underlying acute lung injury from sepsis on hemodialysis condition deteriorates consider withdrawal
[2020-02-20] MEDS ORDERED: VANCOMYCIN/NS 1 gm 1 GM/250 ML BAG IV SCH (13:30)
[2020-02-20] MEDS ORDERED: ETOMIDATE 20 MG/10 ML VIAL IV ONE (14:31)
[2020-02-20] MEDS ORDERED: ROCURONIUM 50 MG/5 ML VIAL IV ONE (14:31)
[2020-02-20] MEDS: CEFTRIAXONE/SWI 1gm 1 GM/10 ML SYR IV SCH (16:43)
[2020-02-20] MEDS ORDERED: AMPICILLIN SODIUM 2 GM in NA CHLORIDE 0.9% 100 ML IVPB SCH (17:00)
--- NOTE | 2020-02-20 19:29 | PN ---
Date of Progress Note: 02/20/2020 Mr. Phipps remains intubated, remains in the ICU. He is now a do not resuscitate. Echocardiogram s howed an ejection fraction of about 40% today. I believe he is having issues with DIC. He has a whi te count of 30,000 and his INR is 8.35. His liver function enzymes are in the 1000s, his AST is 19,1 18. Creatinine is 4.81. He remains in sinus rhythm, intubated. His coronavirus testing was negativ e. His pO2 is 145, pCO2 of 40, pH is 7.25. Mr. Phipps still carries a rather very guarded prognosi s. He will continue to follow along with Dr. Mckeon. MENDOZA/MODL Voice ID: [id number] Report ID: [id number]
--- NOTE | 2020-02-20 22:20 | PN ---
Date of Progress Note: 02/20/2020 Chief Complaint: Acute kidney injury, severe with hyperkalemia. History Of Present Illness: Patient has underlying history of chronic kidney disease stage 3, creati nine baseline was 1.3. Patient has history of hypertension, treated with olmesartan-hydrochlorothiaz owen, atrial fibrillation on Eliquis, and HLV as well as on CPAP. The patient presented aft er fall and he underwent surgery. At about 3 weeks ago, he fell at home and blood pressure was in 70 s. The patient had ABG, which showed hypoxia. Patient was intubated, was found to have significant bandemia and is treated for sepsis. Patient has anuric urine output. He remains on pressors. Patient is started on dialysis today. Patient was found to have tachycardia and blood flow with dial ysis was reduced from 250 to 200. Review of Systems: Unobtainable, the patient is intubated. Physical Examination: Lungs: Diminished breath sounds at bases. Heart: S1, S2. Abdomen: Soft, benign. Extremities: Slight edema. Impression: Acute kidney injury on chronic kidney disease stage 3 due to ischemic acute tubular necr osis and sepsis with prerenal azotemia leading to acute tubular necrosis. Patient is started on dial ysis. Plan: 1.To continue dialysis with daily treatment. Patient was found to have severe hyperkalemia, potassi um level improved today after dialysis. 2.Severe sepsis, bandemia. Continue treatment with antibiotics, adjust antibiotic dose accordingly to renal function. 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 4.Plan is to monitor CK level to rule out rhabdomyolysis and continue to adjust dialysis, started ultrafiltration rate according to fluid status. EB/MODL Voice ID: [id number] Report ID: [id number]
[2020-02-21 00:10] VITALS: TEMP 97.8
[2020-02-21] MEDS: METHYLPREDNISOLONE 40 MG INJ IV SCH ×2 (02:17→09:40)
[2020-02-21 08:12] LABS: Albumin 2.3 g/dL (3.4-5.0); Bilirubin Total 4.4 mg/dL (0.2-1.0); Magnesium 2.2 mg/dL (1.8-2.4); Potassium 4.7 mmol/L (3.5-5.1); Protein, Total 5.7 g/dL (6.4-8.2)
--- NOTE | 2020-02-21 08:18 | RAD REPORT ---
EXAM DESCRIPTION: RAD - Chest Single View - 02/21/2020 8:05 am CLINICAL HISTORY: ETT placement/PNA COMPARISON: Portable February 19, portable February 18 TECHNIQUE: AP portable chest image was obtained 02/21/2020 8:05 am . FINDINGS: Endotracheal tube remains in place in good position 3 cm from the david. NG tube is in pl cholo extending below the diaphragm. Tip is off the field of view. Bilateral pleural effusions are present left greater than right. Atelectasis is present in each lung base. Left base pneumonia findings are certainly possible. Patient could have patchy infiltrates else where in the lung parenchyma. Overall no substantial change to the lung parenchyma suspected. Mild ca rdiomegaly present. No pneumothorax. No acute bony abnormality seen. No acute aortic findings suspect ed. IMPRESSION: ET tube and NG tube remain in good position. Bilateral pleural effusions and lung base atelectasis. Left base assessment is very limited and pneum onia is certainly possible.
--- NOTE | 2020-02-21 08:24 | P.PN ---
Subjective Date of Service: 02/21/20 Primary Care Provider: Dr. Block; Orthopedics-Dr. Martinez; Cardiology-Dr. Irby Chief Complaint: Respiratory failure shock Subjective: Other (Patient remains on ventilator. Patient off vasopressors. Patient off sedation for at least 24 hr but no response to pain or gag reflex.) Physical Examination - Vital Signs Temperature: 97.8 F Blood Pressure: 125/97 Pulse: 116 Respirations: 13 Pulse Ox (%): 96 - Physical Exam General: Other (Patient currently intubated. No sedation over 24 hr. No response to pain or stimuli. No gag reflex.) Neck: Supple Respiratory: Clear to auscultation bilaterally, Normal air movement Cardiovascular: Irregular heart rate/rhythm (Atrial fibrillation rate around 120) Gastrointestinal: Normal bowel sounds, Soft and benign, Non-distended Integumentary: Other (Ecchymoses noted to the distal extremities. Mottling noted to the extremities. Some edema noted.) - Studies Microbiology Data (last 24 hrs): 02/18/20 01:15 Blood - Blood Blood Culture Gram Stain - Final 02/18/20 01:15 Blood - Blood Gram Stain - Final Medications List Reviewed: Yes Assessment & Plan Discharge Plan: Other (Family plans for withdrawal of care) Physician Review Additional Text: Impression: Septic shock with acute on chronic respiratory failure with hypoxia complicated with acute on chronic diastolic CHF, acute renal failure, liver failure, COPD exacerbation, and possible bilateral pneumonia/UTI Acute on chronic renal disease stage II now with further renal failure requiring dialysis with noted hyperkalemia Liver failure likely related to septic shock Left lower extremity cellulitis Atrial fibrillation on chronic anti coagulation therapy GERD History of tobacco and alcohol abuse Recent orthopedic surgery Plan: Septic shock with acute on chronic respiratory failure with hypoxia complicated with acute on chronic diastolic CHF, acute renal failure, liver failure, COPD exacerbation, and possible bilateral pneumonia/UTI, blood cultures positive for Strept.: Patient remains intubated. Now off vasopressor. Atrial fibrillation rate around 120 noted. Patient has been off sedation for at least 24 hr. Still no response to pain, stimuli. No response with gag reflex. Patient received dialysis yesterday but limited held due to accelerated heart rate. Spoke to w luz elena at length today. Prognosis still remains very poor. Future quality of care would be very poor. Unlikely for the patient to wake up. understands current situation and plan of care. has expressed numerous times that the patient would not want to be on life support. After reviewing information, plans to come to the hospital to signed paperwork for withdrawal of care. Case discussed with pulmonology. Pulmonology agrees with plan of care. Withdrawal of care expected. Acute on chronic renal disease stage II now with further renal failure requiring dialysis with noted hyperkalemia: Patient has received dialysis. This was limited yesterday. Liver failure likely related to septic shock: Continue current therapy at this time. Will monitor closely. Patient received more FFP yesterday. Left lower extremity cellulitis: Continue antibiotics. Await culture results. Atrial fibrillation on chronic anti coagulation therapy: Anti coagulation therapy held at this time. Continue other medication GERD: Continue medication History of tobacco and alcohol abuse Recent orthopedic surgery: This was addressed in detail with orthopedics. Patient was reassessed. No indication cellulitis to the right lower extremity for the cast had in place. Time Spent Managing Pts Care (In Minutes): 55
[2020-02-21 08:36] LABS: Absolute Lymphocytes (CBC) 0.3 K/uL (0.7-4.9); Basophils % 0.1 % (0-1.3); Lymphocytes % 1.3 % (15.3-44.8); MPV 10.1 fL (7.6-11.3); RBC Red Blood Cell Count 4.42 M/uL (4.33-5.43)
--- NOTE | 2020-02-21 08:53 | ECHO ---
HEIGHT: 6 ft 3 in WEIGHT: 318 lb 0 oz DATE OF STUDY: 02/20/[address]: Berlin Mckeon DO 2-DIMENSIONAL: YES M.MODE: YES DOPPLER: YES COLOR FLOW: YES TDS: YES PORTABLE: YES DEFINITY: BUBBLE STUDY: DIAGNOSIS: ACUTE ON CHRONIC DIASTOLIC CONGESTIVE HEART FAILURE CARDIAC HISTORY: CATHERIZATION: NO SURGERY: NO PROSTHETIC VALVE: NO PACEMAKER: NO MEASUREMENTS (cm) DIASTOLIC (NORMALS) SYSTOLIC (NORMALS) IVSd 1.0 (0.6-1.2) LA Diam 3.8 (1.9-4.0) LVEF 40-45% LVIDd 4.5 (3.5-5.7) LVIDs 3.2 (2.0-3.5) %FS 28% LVPWd 1.1 (0.6-1.2) Ao Diam 2.6 (2.0-3.7) 2 DIMENSIONAL ASSESSMENT: RIGHT ATRIUM: NORMAL LEFT ATRIUM: NORMAL RIGHT VENTRICLE: NORMAL LEFT VENTRICLE: NORMAL SIZE TRICUSPID VALVE: NORMAL MITRAL VALVE: NORMAL PULMONIC VALVE: NORMAL AORTIC VALVE: NORMAL PERICARDIAL EFFUSION: NONE AORTIC ROOT: NORMAL LEFT VENTRICULAR WALL MOTION: MILD GLOBAL HYPOKINESIS DOPPLER/COLOR FLOW: MILD TRICUSPID REGURGITATION COMMENTS: MILD GLOBAL HYPOKINESIS - EJECTION FRACTION 40-45%. MILD TRICUSPID REGURGITATION - NORMAL RIGHT VENTRICULAR SYSTOLIC PRESSURE. NO EFFUSION. TECHNOLOGIST: RONALD CASPER
[2020-02-21] MEDS ORDERED: FAMOTIDINE 20 MG/2 ML VIAL IV SCH (09:00)
[2020-02-21] MEDS: GUAIFENESIN 600 MG SA TAB PO SCH (09:00)
[2020-02-21] MEDS: MUPIROCIN 2% OINT 22GM TUBE TOP SCH (09:00)
[2020-02-21 09:05] LABS: Protime INR 4.28
[2020-02-21 09:28] VITALS: O2SAT 95
[2020-02-21] MEDS: FOLIC ACID 1 MG in NA CHLORIDE 0.9% 50 ML IV SCH (09:39)
[2020-02-21] MEDS: ZINC SULFATE 220 MG CAP PO SCH (09:39)
[2020-02-21] MEDS: THIAMINE 200 MG/2 ML INJ IVP SCH (09:40)
[2020-02-21] MEDS: CEFTRIAXONE/SWI 1gm 1 GM/10 ML SYR IV SCH (09:41)
[2020-02-21 10:03] LABS: Arterial Blood Carboxyhemoglob 1.1 % (0-1.5); Blood Gas Oxyhemoglobin 93.1 % (94-97); Blood O2 Saturation 95.2 % (92-98.5)
--- NOTE | 2020-02-21 11:06 | PN ---
Date of Progress Note: 02/21/2020 Subjective: Patient was admitted with acute kidney injury, rhabdomyolysis, anuric. Patient received dialysis for hyperkalemia. Patient was on pressor wean from pressor. Patient still on vent, poor r esponse/no response, still anuric. Physical Examination: Vital Signs: Blood pressure 126/98, pulse of 135, afebrile. No urine output. Chest: Decreased air entry bilateral base. Heart: S1, S2, regular. Abdomen: Soft, obese. Extremities: Trace edema. Neuro: Patient intubated, off sedation but no response to gag or pain stimuli. Laboratory Data: WBC 26.2, H and H 10.4/34, platelets 167. Sodium 133, potassium 4.7, bicarb 23, BU N 47, creatinine 4.3, calcium 6.2, magnesium 2.2. AST, ALT; ALT elevated 5000/8000. Albumin 2.3. T SH 1.2. Current Medications: 1.Ceftriaxone. 2.Vancomycin. 3.Folic acid. 4.Pepcid. 5.Solu-Medrol. 6.Fentanyl. Assessment And Plan: 1.Acute kidney injury secondary to rhabdomyolysis, anuric. I am going to continue to monitor the pa tient. The patient family apparently decided for possible withdrawal of care. We will watch the pat ient next 24 hours. If patient's family proceed with withdrawal of care, we will sign off. Please c all us as needed. 2. , currently controlled. Off pressor. Keep holding all blood pressure medication. 3.Hyperkalemia status post dialysis resolved. 4.Rhabdomyolysis status post dialysis. We will follow up with the Primary. Patient overall poor pr ognosis. Again, patient is going to be withdrawal of care. We will follow up with Primary. We will sign off currently. 5.Hypocalcemia. We will hold on any supplement given the rhabdo. SUSANA/CLAUDIA Voice ID: [id number] Report ID: [id number]
[2020-02-21] MEDS ORDERED: MORPHINE 2 MG/ML SYR IV PRN (11:12)
[2020-02-21] MEDS ORDERED: LORazepam 2 MG/ML VIAL IV PRN (11:13)
--- NOTE | 2020-02-21 11:54 | P.DS ---
Admission Date: 02/18/20 Discharge Date: 02/21/20 Primary Care Provider: Dr. Block; Orthopedics-Dr. Martinez; Cardiology-Dr. Irby Disposition: Discharge Condition: GOOD Reason for Admission: Respiratory failure shock Consultations: Pulmonary-Dr. Ford Cardiology-Dr. Ivy Nephrology-Dr. Matos Orthopedics-Dr. Martinez Procedures: CT scan: COMPARISON: None. TECHNIQUE: CT chest abdomen pelvis without contrast on 02/18/2020 1:05 AM CDT This exam was performed according to our departmental dose-optimization program, which includes automated exposure control, adjustment of the mA and/or kV according to patient size and/or use of iterative reconstruction technique. FINDINGS: Chest: The heart is mildly enlarged. There is no pericardial effusion. Intrathoracic lymph nodes are not enlarged. There is no pleural effusion, pleural thickening or pneumothorax. Central airways are patent. There are moderate patchy opacities throughout both lungs. Abdomen: The liver is normal in appearance. There is no biliary dilatation. The pancreas and spleen are normal in appearance. Right adrenal adenoma measures 3.1 cm. Left adrenal gland is normal. Kidneys are mildly atrophic. There are two left renal calculi Measuring up to 8 mm. There is no hydronephrosis. Abdominal aorta is normal in course and caliber without aneurysm. There is no free air. There is no retroperitoneal adenopathy. Pelvis: There is no bowel obstruction. Urinary bladder is unremarkable. There is no free fluid. Appendix is normal. Skeleton: There is an old fracture of the posterior left eighth rib. IMPRESSION: No definite acute posttraumatic findings. Electronically signed by: Christian Osman MD 02/18/2020 3:40 AM CDT End of Addendum CLINICAL HISTORY: PAIN COMPARISON: None. TECHNIQUE: CT Head and Cervical spine WO contrast on 02/18/2020 1:05 AM CDT This exam was performed according to our departmental dose-optimization program, which includes automated exposure control, adjustment of the mA and/or kV according to patient size and/or use of iterative reconstruction technique. FINDINGS: Brain: There is no acute hemorrhage, mass effect or midline shift. Khan-white differentiation is preserved. There is no hydrocephalus. There is no significant volume loss for age. The calvarium is intact. Orbits and globes are unremarkable. The paranasal sinuses are clear. There is fluid throughout the right mastoid air cells. Cervical Spine: There is no acute fracture. Alignment is anatomic. Disc spaces are maintained. Vertebral body heights are preserved. Soft tissues are unremarkable. IMPRESSION: No acute intracranial findings. ECHO: EF 40% LEFT VENTRICULAR WALL MOTION: MILD GLOBAL HYPOKINESIS DOPPLER/COLOR FLOW: MILD TRICUSPID REGURGITATION COMMENTS: MILD GLOBAL HYPOKINESIS EJECTION FRACTION 40-45%. MILD TRICUSPID REGURGITATION NORMAL RIGHT VENTRICULAR SYSTOLIC PRESSURE. NO EFFUSION. Medical Problem List: Septic shock with multiorgan failure- acute on chronic respiratory failure with hypoxia complicated with acute on chronic systolic CHF ejection fraction 40%, acute renal failure, liver failure, COPD exacerbation, bilateral pneumonia, UTI, and bacteremia Acute on chronic renal disease stage II now with end-stage renal failure requiring emergent dialysis with noted hyperkalemia Liver failure likely related to septic shock with abnormal coagulation factors Left lower extremity cellulitis Atrial fibrillation on chronic anti coagulation therapy GERD History of tobacco and alcohol abuse Recent orthopedic surgery Brief History of Present Illness: 64-year-old male with history of atrial fibrillation on chronic anti coagulation therapy, hypertension, COPD, tobacco and alcohol abuse. Patient also likely with underlying obstructive sleep apnea. Patient was brought in by EMS after the patient had fallen at home. Patient reports that he had surgery-right ankle open reduction/internal fixation of medial malleolus and open reduction/internal fixation of lateral malleolus due to right bimalleolar ankle fracture dislocation on 02/03/2020 by Orthopedic-Dr. Martinez. Since that time his mobility has been compromise. Over the last several days he has been reporting some cough, congestion. Over the last 12:48 p.m. he noted some fever and chills. He has been coming very weak. Some shortness of breath noted. EMS was called due to his fall. When EMS arrived ER nurse and reported that his sats were in the 70s with blood pressure decreased is well. Patient denies any nausea, vomiting. He denies any chest pain. No recent sick contacts noted. No recent travel. Patient has been primarily at home. In the ER patient was evaluated. Patient initially hypoxic and with low blood pressure. Sepsis protocol initiated. Patient has received 2 L of normal saline. 3rd L currently being given. Patient on Venti mask at this time. Blood pressure slightly decreased. White count 13, hemoglobin 10.4, platelet count within normal range. Sodium 142, potassium 3.0. BUN of 36, creatinine 1.86. GFR of 37. Bicarb 30. Glucose 114. BNP elevated at over 2000. Pro calcium elevated at 10.9. Lactic acid also elevated at 4.3. INR 2.4. CT traumagram showed no acute findings to indicate any fracture. Heart appeared myelin large. No pericardial effusion noted. No pleural effusion or pleural thickening noted No pneumothorax noted patchy opacities throughout both lungs noted. Influenza test negative. Strep test positive. COVID viral test obtained. Patient was given IV vancomycin, Zosyn, and Solu-Medrol in the emergency room. Patient initiated on bolus protocol. Patient admitted for further evaluation and treatment. When I saw the patient ER, blood pressure decreased. Patient is obese. Likely underlying obstructive sleep apnea. Patient was cooperative. Patient with increased sedation. During the course of his stay in the ER the patient progressively got worse. Patient with acute respiratory failure and septic shock. Patient was intubated and started on pressors. Hospital Course: Please refer to notes for more detail. Patient was brought in by EMS after a fall. Patient was found to have hypotension, hypoxia. Patient had reported cough, congestion and shortness of breath over several days. Patient was admitted to ICU. In the emergency room his condition declined. Patient was found to have multiple abnormalities including severe hypoxia, bilateral pneumonia, severe hypotension. Patient required emergent intubation and started on vasopressors. Pulmonology, nephrology, cardiology and orthopedics were consulted. His condition continued to decline. Patient required 2 vasopressors. Patient was found to have acute renal failure the following day with hyperkalemia. This required emergent dialysis. Coagulation factors were abnormal along with significantly elevated liver function tests secondary to liver failure. Patient required FFP. Multiorgan failure continue to be treated. Multiorgan failure included acute on chronic respiratory failure with hypoxia related to acute on chronic systolic CHF, acute renal failure, liver failure, COPD exacerbation, bilateral pneumonia, UTI and bacteremia. Blood cultures were positive for Streptococcus pyogenes. Patient was evaluated for COVID. He was COVID negative. As his condition continued decline I was in contact with his . Advanced directives were addressed in detail. expressed that she was not aware of the patient's chronic medical problems as he was very secretive. Patient also expressed the patient's lack desired to continue life support if an event like this were to occur. The patient remained on the ventilator. Renal failure and liver failure continued. Patient was able to get off 2 vasopressors. Patient was without sedation for at least 24 hr. There was no sign of gag reflex or response to pain or stimuli. Further discussion with the pursued. Advanced directives and plan of care address in detail. After long discussion with the , the understood the patient's current multiple medical issues and likely poor quality of life. Prognosis was poor. The desired for the patient to have withdrawal of care and continue only with comfort measures. Arrangements for withdrawal of care in comfort measures were pursued. The patient peacefully at 11:22 a.m.. March he rest in peace. Vital Signs/Physical Exam: Temp Pulse Resp BP Pulse Ox 97.8 F 135 H 16 126/98 H 96 02/21/20 08:24 02/21/20 10:00 02/21/20 10:00 02/21/20 10:00 02/21/20 10:00 Other Physical/Emotional Findings: Patient Laboratory Data at Discharge: WBC 26.2 K/uL (4.3-10.9) H* 02/21/20 04:45 Hgb 10.4 g/dL (13.6-17.9) L 02/21/20 04:45 Hct 34.0 % (39.6-49.0) L 02/21/20 04:45 Plt Count 167 K/uL (152-406) 02/21/20 04:45 PT 49.1 SECONDS (9.5-12.5) H 02/21/20 04:45 INR 4.28 H* 02/21/20 04:45 APTT 28.1 SECONDS (24.3-36.9) 02/21/20 04:45 Sodium 133 mmol/L (136-145) L 02/21/20 04:45 Potassium 4.7 mmol/L (3.5-5.1) 02/21/20 04:45 BUN 47 mg/dL (7-18) H 02/21/20 04:45 Creatinine 4.36 mg/dL (0.55-1.3) H 02/21/20 04:45 Glucose 156 mg/dL (74-106) H 02/21/20 04:45 Magnesium 2.2 mg/dL (1.8-2.4) 02/21/20 04:45 Total Bilirubin 4.4 mg/dL (0.2-1.0) H 02/21/20 04:45 AST 5154 U/L (15-37) H* D 02/21/20 04:45 ALT 8057 U/L (12-78) H* D 02/21/20 04:45 Alkaline Phosphatase 264 U/L (45-117) H 02/21/20 04:45 Troponin I 1.63 ng/mL (0.0-0.045) H* 02/19/20 05:40 Triglycerides 90 mg/dL (<150) 02/19/20 05:40 Cholesterol 74 mg/dL (<200) 02/19/20 05:40 HDL Cholesterol 42 mg/dL (40-60) 02/19/20 05:40 Cholesterol/HDL Ratio 1.76 02/19/20 05:40 Amylase 33 U/L (25-115) 02/18/20 01:10 Lipase 179 U/L (73-393) 02/18/20 01:10 Home Medications: Amlodipine Besylate 1 tab PO DAILY 02/02/20 Apixaban [Eliquis] 1 tab PO BID 02/02/20 Furosemide 1 tab PO DAILY 02/02/20 Metoprolol Succinate [Toprol Xl] 1 tab PO BID 02/02/20 Olmesartan/Hydrochlorothiazide [Olmesartan-Hctz 40-12.5 mg Tab] 1 each PO DAILY 02/02/20 Patient Discharge Instructions: Patient . May he rest in peace. Time spent managing pt's care (in minutes): 55
[2020-02-21 13:06] VITALS: BP 134/88
== END 2020-02-21 11:22 | disposition expired | DRG 871 ==
LOC: ER 00:57 → ERHOLD 05:21 → 3RD-ICU 08:05
PROVIDERS: ADMIT Family Medicine; ATTEND Family Medicine
PROC: 5A1945Z Respiratory Ventilation, 24-96 Consecutive Hours (ICD-10-PCS; principal; 2020-02-18)
PROC: 0BH17EZ Insertion of Endotracheal Airway into Trachea, Via Natural or Artificial Opening (ICD-10-PCS; 2020-02-18)
PROC: 5A1D70Z Performance of Urinary Filtration, Intermittent, Less than 6 Hours Per Day (ICD-10-PCS; 2020-02-19)
PROC: 30233P1 Transfusion of Nonautologous Frozen Red Cells into Peripheral Vein, Percutaneous Approach (ICD-10-PCS; 2020-02-19)
PROC: 0JH60XZ Insertion of Tunneled Vascular Access Device into Chest Subcutaneous Tissue and Fascia, Open Approach (ICD-10-PCS; 2020-02-19)
PROC: 06HN33Z Insertion of Infusion Device into Left Femoral Vein, Percutaneous Approach (ICD-10-PCS; 2020-02-19)
DX: A41.9 Sepsis, unspecified organism (principal); R65.21 Severe sepsis with septic shock; I50.23 Acute on chronic systolic (congestive) heart failure; J96.21 Acute and chronic respiratory failure with hypoxia; N18.6 End stage renal disease; J15.4 Pneumonia due to other streptococci; N17.0 Acute kidney failure with tubular necrosis; J44.1 Chronic obstructive pulmonary disease with (acute) exacerbation; J44.0 Chronic obstructive pulmonary disease with (acute) lower respiratory infection; N39.0 Urinary tract infection, site not specified; I13.2 Hypertensive heart and chronic kidney disease with heart failure and with stage 5 chronic kidney disease, or end stage renal disease; L03.116 Cellulitis of left lower limb; Z68.41 Body mass index [BMI] 40.0-44.9, adult; M62.82 Rhabdomyolysis; E87.5 Hyperkalemia; K72.90 Hepatic failure, unspecified without coma; I48.91 Unspecified atrial fibrillation; Z79.01 Long term (current) use of anticoagulants; K21.9 Gastro-esophageal reflux disease without esophagitis; G47.33 Obstructive sleep apnea (adult) (pediatric); B95.5 Unspecified streptococcus as the cause of diseases classified elsewhere; Z79.899 Other long term (current) drug therapy; F17.200 Nicotine dependence, unspecified, uncomplicated; F10.10 Alcohol abuse, uncomplicated; Z11.59 Encounter for screening for other viral diseases; E87.6 Hypokalemia; Z95.1 Presence of aortocoronary bypass graft; Z66 Do not resuscitate; E66.01 Morbid (severe) obesity due to excess calories; R00.0 Tachycardia, unspecified; Z96.698 Presence of other orthopedic joint implants; E83.51 Hypocalcemia
CPT/HCPCS: 31500; 36415; 36430; 51702; 70450; 71045; 71250; 72125; 80048; 80053; 80061; 80076; 80202; 81003; 81015; 82150; 82550; 82553; 82728; 82805; 82947; 83605; 83615; 83690; 83735; 83880; 84132; 84145; 84439; 84443; 84484; 85025; 85384; 85610; 85730; 86850; 86900; 86901; 87040; 87045; 87046; 87077; 87081; 87086; 87088; 87186; 87205; 87804; 89055; 90935; 93005; 93306; 94002; 94003; 94660; 96361; 96365; 96366; 96367; 96368; 96375; 99285; J0290; J0610; J0692; J0696; J1160; J1644; J1720; J1940; J2250; J2370; J2405; J2543; J2704; J2920; J3010; J3411; J7030; J7040; J7060; J7606; P9059; U0001